=== PATIENT | male | born 1940 | race Caucasian/White ===

== ENCOUNTER 2016-12-23 03:01 | Inpatient (IN) | payer MEDICARE, OTHER ==
[2016-12-23] MEDS ORDERED: PANTOPRAZOLE SODIUM 40 MG VIAL IV ONE (03:30)
--- NOTE | 2016-12-23 03:32 | ER Document Report ---
ED GI/ - General Mode of Arrival: Ambulatory Information source: Patient TRAVEL OUTSIDE OF THE [place] IN LAST 30 DAYS: No - HPI Patient complains to provider of: Vomiting Associated symptoms: Other - See above <RHONDA BELL - Last Filed: 12/23/16 03:42> <FRIDASWATHISCOTT REBECCA - Last Filed: 12/23/16 06:19> - General Chief Complaint: Vomiting Stated Complaint: VOMITING BLOOD Notes: Patient is a 76 year old male, with a past medical history including ulcers, who presents to the emergency department after vomiting blood. Patient reports the vomit is darkish red in color. Patient reports this has not happened in a long time. Patient complains of some pain in his esophagus. Patient admits to not eating very well recently and that he is not on any blood thinners or Asa. Patient denies lightheadedness, dizziness, and chest pain. Patient reports he has had dark stools but not in the past couple of days. PCP: Dr. Heller (RHONDA BELL) - Related Data Allergies/Adverse Reactions: No Known Allergies Allergy (Unverified 12/23/16 05:45) Past Medical History - General Information source: Patient - Social History Smoking Status: Unknown if Ever Smoked Frequency of alcohol use: Occasional Family History: Reviewed & Not Pertinent Patient has suicidal ideation: No Patient has homicidal ideation: No <RHONDA BELL - Last Filed: 12/23/16 03:42> Review of Systems - Review of Systems Constitutional: No symptoms reported EENT: No symptoms reported Cardiovascular: denies: Chest pain, Dizziness, Lightheaded Respiratory: No symptoms reported Gastrointestinal: See HPI, Vomiting, Blood in vomit, Black stools Genitourinary: No symptoms reported Male Genitourinary: No symptoms reported Musculoskeletal: No symptoms reported Skin: No symptoms reported Hematologic/Lymphatic: No symptoms reported Neurological/Psychological: No symptoms reported -: Yes All other systems reviewed and negative <RHONDA BELL - Last Filed: 12/23/16 03:42> Physical Exam - Vital signs Interpretation: Tachycardic - General General appearance: Appears well, Alert - HEENT Head: Normocephalic, Atraumatic - Respiratory Respiratory status: No respiratory distress Chest status: Nontender Breath sounds: Normal Chest palpation: Normal - Cardiovascular Rhythm: Tachycardia Heart sounds: Normal auscultation Murmur: No - Abdominal Inspection: Normal Distension: No distension Bowel sounds: Normal Tenderness: Tender - Mild epigstric tenerness to palpation Organomegaly: No organomegaly - Extremities General upper extremity: Normal inspection General lower extremity: Normal inspection - Neurological Neuro grossly intact: Yes Cognition: Normal Orientation: AAOx4 [place] Coma Scale Eye Opening: Spontaneous [place] Coma Scale Verbal: Oriented [place] Coma Scale Motor: Obeys Commands Renee Coma Scale Total: 15 Speech: Normal - Psychological Associated symptoms: Normal affect, Normal mood - Skin Skin Temperature: Warm Skin Moisture: Dry Skin Color: Normal <RHONDA BELL - Last Filed: 12/23/16 03:42> Course <RHONDA BELL - Last Filed: 12/23/16 03:42> - Laboratory Result Diagrams: 12/23/16 03:37 12/23/16 03:37 - Diagnostic Test Radiology reviewed: Image reviewed, Reports reviewed <SCOTT JAMISON - Last Filed: 12/23/16 06:19> - Re-evaluation Re-evalutation: 12/23/16 06:16 Patient presents with coffee-ground emesis. History of gastritis and peptic ulcer disease. Sent surgery in the past for perforated ulcer. Hemoglobin stable. Patient is still mildly tachycardic. He has been given Protonix with fluids. No acute findings on ultrasound. Afebrile. Patient is agreeable to admission. Discussed with the hospitalist. We have GI on today. Stable time of admission (SCOTT JAMISON) - Vital Signs Vital signs: Temp Pulse Resp BP Pulse Ox 98.2 F 125 H 18 168/77 H 97 12/23/16 03:06 12/23/16 03:06 12/23/16 03:06 12/23/16 03:06 12/23/16 03:06 - Laboratory Laboratory results interpreted by me: 12/23/16 12/23/16 03:37 03:37 WBC 13.1 H RBC 4.16 L Seg Neutrophils % 81.4 H Lymphocytes % 8.1 L Absolute Neutrophils 10.7 H Sodium 136.5 L Glucose 176 H Calcium 10.9 H Total Bilirubin 1.8 H AST 60 H Discharge <RHONDA BELL - Last Filed: 12/23/16 03:42> - Discharge Admitting Provider: Hospitalist [facility] Admitted: Telemetry <SCOTT JAMISON - Last Filed: 12/23/16 06:19> - Discharge Clinical Impression: Coffee ground emesis Vomiting Qualifiers: Vomiting type: unspecified Vomiting Intractability: non-intractable Nausea presence: with nausea Qualified Code(s): R11.2 - Nausea with vomiting, unspecified Condition: Stable Disposition: ADMITTED OBSERVATION Scribe Attestation: 12/23/16 06:18 I personally performed the services described in the documentation, reviewed and edited the documentation which was dictated to the scribe in my presence, and it accurately records my words and actions. (SCOTT JAMISON) Scribe Documentation - Scribe Written by Reilly:: reilly Deal, 12/23/16, 0356 acting as scribe for :: Naina <RHONDA BELL - Last Filed: 12/23/16 03:42>
[2016-12-23 03:47] LABS: ABSOLUTE LYMPHOCYTES (AUTO) 1.1 10^3/uL (0.5-4.7); ABSOLUTE MONOCYTES (AUTO) 1.3 10^3/uL (0.1-1.4); ABSOLUTE NEUT (AUTO) 10.7 10^3/uL (1.7-8.2); BASOPHILS % (AUTO) 0.2 % (0-2); EOSINOPHILS % (AUTO) 0.1 % (0-6); HEMOGLOBIN 13.9 g/dL (13.5-17.0); HGB HCT DIFFERENCE 1.7; LYMPHOCYTES % (AUTO) 8.1 % (13-45); MEAN CORPUSCULAR HEMOGLOBIN 33.3 pg (27.0-33.4); MEAN CORPUSCULAR HGB CONC 34.7 g/dL (32.0-36.0); MEAN CORPUSCULAR VOLUME 96 fl (80-97); MONOCYTES % (AUTO) 10.2 % (3-13); RED BLOOD COUNT 4.16 10^6/uL (4.35-5.55); RED CELL DISTRIBUTION WIDTH 12.1 % (11.5-14.0); SEGMENTED NEUTROPHILS % (AUTO) 81.4 % (42-78); WHITE BLOOD COUNT 13.1 10^3/uL (4.0-10.5)
[2016-12-23 04:04] LABS: ALANINE AMINOTRANSFERASE 43 U/L (21-72); ALBUMIN 3.6 g/dL (3.5-5.0); ALKALINE PHOSPHATASE 81 U/L (38-126); ANION GAP 12 (5-19); ASPARTATE AMINO TRANSFERASE 60 U/L (17-59); BILIRUBIN,TOTAL 1.8 mg/dL (0.2-1.3); BLOOD UREA NITROGEN 14 mg/dL (7-20); CALCIUM 10.9 mg/dL (8.4-10.2); CARBON DIOXIDE 25 mmol/L (22-30); CHLORIDE 100 mmol/L (98-107); CREATINE KINASE 58 U/L (55-170); CREATININE RESULT 1.06 mg/dL (0.52-1.25); GLUCOSE 176 mg/dL (75-110); LIPASE 152.7 U/L (23-300); SODIUM 136.5 mmol/L (137-145); TOTAL PROTEIN 7.7 g/dL (6.3-8.2)
[2016-12-23 04:16] LABS: CREATINE KINASE MB 0.91 ng/mL (<4.55)
[2016-12-23 04:17] LABS: TROPONIN I < 0.012 ng/mL
[2016-12-23] MEDS ORDERED: ONDANSETRON HCL INJ/PF 4 MG/2 ML SDV IV PRN (06:19)
[2016-12-23] MEDS ORDERED: SUCRALFATE 1 GM TABLET PO ONE (06:19)
[2016-12-23] MEDS ORDERED: ACETAMINOPHEN 650 MG SUPP.RECT PR PRN (06:19)
[2016-12-23] MEDS ORDERED: IPRATROPIUM/ALBUTEROL 0.5-2.5 MG/3 ML AMPUL NEB PRN (06:19)
[2016-12-23] MEDS: PANTOPRAZOLE SODIUM 40 MG VIAL IV PRN (06:25)
[2016-12-23 06:26] LABS: AMORPHOUS SEDIMENT,URINE TRACE /HPF; APPEARANCE,URINE SLIGHTLY-CLOUDY; BILIRUBIN,URINE NEGATIVE (NEGATIVE); GLUCOSE, URINE NEGATIVE (NEGATIVE); KETONES,URINE NEGATIVE (NEGATIVE); LEUKOCYTE ESTERASE,URINE NEGATIVE (NEGATIVE); NITRITE,URINE NEGATIVE (NEGATIVE); PROTEIN,URINE NEGATIVE (NEGATIVE); URINE SPECIFIC GRAVITY 1.006
[2016-12-23] MEDS: NORMAL SALINE 1000 ML 1,000 ML IV SCH ×2 (06:41→12:17)
[2016-12-23] MEDS ORDERED: NORMAL SALINE 500 ML with OCTREOTIDE ACETATE 500 MCG IV PRN ×2 (06:49)
[2016-12-23] MEDS ORDERED: METOPROLOL TARTRATE PF/INJ 5 MG/5 ML SDV IV ONE (06:49)
--- NOTE | 2016-12-23 07:02 | PDOC H&P ---
History of Present Illness Admission Date/PCP: 12/23/16 06:19 Patient complains of: Vomiting blood History of Present Illness: MARISSA CORONA is a 76 year old male with a past Fred history of remote peptic ulcer disease and esophageal varices 12 years ago. Been in his usual state of health until approximately 4 hours prior to presentation having a stomachache followed by 3 episodes of vomiting both bright red and dark blood with an estimated blood loss of approximately 1 cup. Patient is a poor historian stating he has had symptoms somewhat similar in the past but nothing recent, he denies problem drinking but has evidence of ascites and is unclear quantifying his customary of several beers and whiskey per day. He's had no further episodes of nausea or abdominal pain while in the emergency room he is tachycardic and his CBC is unremarkable he is INR is pending he is started on IV Protonix and referred to hospice for admission. Past Medical History Cardiac Medical History: Reports: None Pulmonary Medical History: Reports: None EENT Medical History: Reports: None Neurological Medical History: Reports: None Endocrine Medical History: Reports: None Renal/ Medical History: Reports: None Malignancy Medical History: Reports: None GI Medical History: Reports: Cirrhosis, Peptic Ulcer Disease - Status post unknown peptic ulcer surgery, Other - Esophageal varices Musculoskeltal Medical History: Reports: None Skin Medical History: Reports: None Psychiatric Medical History: Reports: Alcohol Dependency Past Surgical History Past Surgical History: Reports: Other - Peptic ulcer surgery abdominal midline scar Social History Information Source: Patient Lives with: Alone Smoking Status: Unknown if Ever Smoked Frequency of Alcohol Use: Heavy Drugs: None Hx Prescription Drug Abuse: No - Advance Directive Resuscitation Status: Full Code Family History Family History: Hypertension Parental Family History Reviewed: Yes Children Family History Reviewed: Yes Sibling(s) Family History Reviewed.: Yes Medication/Allergy Allergies/Adverse Reactions: No Known Allergies Allergy (Unverified 12/23/16 05:45) Review of Systems Constitutional: PRESENT: fatigue. ABSENT: chills, fever(s), headache(s), weight gain, weight loss Eyes: ABSENT: visual disturbances Ears: ABSENT: hearing changes Cardiovascular: ABSENT: chest pain, dyspnea on exertion, edema, orthropnea, palpitations Respiratory: ABSENT: cough, hemoptysis Gastrointestinal: PRESENT: bloating, coffee ground emesis, heartburn. ABSENT: abdominal pain, constipation, diarrhea, hematemesis, hematochezia, melena, nausea, vomiting Genitourinary: ABSENT: dysuria, hematuria Musculoskeletal: ABSENT: joint swelling Integumentary: ABSENT: rash, wounds Neurological: ABSENT: abnormal gait, abnormal speech, confusion, dizziness, focal weakness, syncope Psychiatric: ABSENT: anxiety, depression, homidical ideation, suicidal ideation Endocrine: ABSENT: cold intolerance, heat intolerance, polydipsia, polyuria Hematologic/Lymphatic: ABSENT: easy bleeding, easy bruising Physical Exam Vital Signs: Temp Pulse Resp BP Pulse Ox 98.2 F 125 H 18 168/77 H 97 12/23/16 03:06 12/23/16 03:06 12/23/16 03:06 12/23/16 03:06 12/23/16 03:06 General appearance: PRESENT: cooperative, mild distress Head exam: PRESENT: atraumatic, normocephalic Eye exam: PRESENT: conjunctiva pink, EOMI, PERRLA. ABSENT: scleral icterus Ear exam: PRESENT: normal external ear exam Mouth exam: PRESENT: moist, tongue midline Neck exam: ABSENT: carotid bruit, JVD, lymphadenopathy, thyromegaly Respiratory exam: PRESENT: clear to auscultation abhilash. ABSENT: rales, rhonchi, wheezes Cardiovascular exam: PRESENT: RRR. ABSENT: diastolic murmur, rubs, systolic murmur Pulses: PRESENT: normal dorsalis pedis pul GI/Abdominal exam: PRESENT: ascites, distended, hyperactive bowel sounds, soft, tenderness - Epigastric tenderness. ABSENT: firm, guarding, hernia Rectal exam: PRESENT: deferred Extremities exam: PRESENT: full ROM. ABSENT: calf tenderness, clubbing, pedal edema Neurological exam: PRESENT: alert, awake, oriented to person, oriented to place , oriented to time, oriented to situation, CN II-XII grossly intact. ABSENT: motor sensory deficit Skin exam: PRESENT: dry, intact, warm. ABSENT: cyanosis, rash Results Impressions: Chest X-Ray 12/23/16 00:00 IMPRESSION: NO ACUTE RADIOGRAPHIC FINDING IN THE CHEST. Abdomen Ultrasound 12/23/16 04:54 IMPRESSION: NORMAL RIGHT UPPER QUADRANT ULTRASOUND. Assessment & Plan - Diagnosis (1) Coffee ground emesis Is this a current diagnosis for this admission?: YesPlan: Unclear source of upper GI bleed given his history of both peptic ulcer disease and varices he'll be started on both IV Protonix and octreotide with GI consult serial CBC every 6 hours type and screen 2 units of pack red blood cells evaluation of INR (2) Peptic ulcer disease Is this a current diagnosis for this admission?: YesPlan: Nothing by mouth, IV Protonix and GI consult (3) Esophageal varices Is this a current diagnosis for this admission?: YesPlan: Octreotide type and screen evaluate for coagulopathy and GI consult (4) Alcohol dependence Is this a current diagnosis for this admission?: YesPlan: Thiamine folate when necessary Ativan (5) Tachycardia Is this a current diagnosis for this admission?: YesPlan: When necessary Lopressor - Time Time Spent: 30 to 50 Minutes - Inpatient Certification Medical Necessity: Need Close Monitoring Due to Risk of Patient Decompensation
[2016-12-23] MEDS ORDERED: LORAZEPAM INJ 2 MG/1 ML VIAL IV PRN (07:20)
--- NOTE | 2016-12-23 09:01 | Physician Advisory Note ---
Physician Advisor ProgressNote .: Pursuant to the plan for [facility], I have reviewed the medical record for this patient. Physician Advisor Statement: Possible documentation opportunities if attending agrees: 1. "SIRS, present on arrival, due to acute GI bleed" 2. "Acute upper GIBleed, due to " (when source this time is known) 3. "mild hyponatremia, likely due to intravascular volume depletion related to EtOH" (or ...) 4. ? - watch for development of "Anemia of acute blood loss due to acute GI Bleed" 5. ? - "malnutrition, mild-moderate, with underlying alcoholism, poor po intake , .... " 6. Medical Necessity - please stress explicitly in documentation the clinical issues that make this pt concerning & needing hospitalization, why despite his initial nl Hgb & improved tachycardia he concerns you and is likely to require close monitoring through as least 12/25 - if indeed you believe this to be true. See below, under "status". As always, if concerned about any unstable VS or abnormal labs, please comment on them & note what doing about them, & please document each day the potential clinical problems you are concerned could occur if pt not kept in hospital for tx at this time. Discussion: 76yo male w/ chronic co-morbidities including cirrhosis, esophageal varices, PUD with prior surgery for perforated ulcer, continuing alcohol dependence - presented 3/7 early AM to ED w/hematemesis (BRB + coffee ground by report), esophageal pain, some previous black stools at times, recent poor po intake, fatigue, bloating, heartburn, (+) HR 125, epigastric tenderness, ascites, WBC 13.1, Hgb 13.9 to start, Na 136.5, glc 176, Ca 10.9, TB 1.8, AST 60 (no previous lab levels here to compare) , CXR & RUQ U/S = no acute findings. Attending ordered IV PPI, octreotide, GI consult, serial CBCs, T&C 2 units, INR , NPO except ice chips, I/O's, daily wts, f/u AM labs, O2 2L, IMCU, tele, IV metoprolol x1, Zofran prn, Carafate, IV NS x2L @200ml/hr, PRN Ativan, thiamine, heparin SQ q8h.. Status: Elderly pt with multiple risk factors for severe acute bleeding, & for recurrent bleeding, including esophageal varices & prior PUD severe enough to require surgery, as well as ongoing alcoholism and likely associated malnutrition. So far Hgb wnl at initial check, but is likely to drop after fluid resuscitation and re-equilibration from prior bleeding, and he will need watching clinically and repeated lab checks to clarify whether or not the drops are only from these issues or whether or not there is ongoing bleeding. Pt's hypertension and tachycardia increase risks for further bleeding from esophageal varices (a reason for giving the IV metoprolol already). Tachycardia is improved by time of 2nd set VS. However, pt remains at high risk for recurrent tachycardia & hypertension due to alcohol withdrawal that can be expected to develop over the next 2-5 days, further increasing risks for re-bleeding. He is certainly at risk for developing DTs as well. Tx in inpatient hospital setting medically reasonable & necessary to protect pt' s health, safety, & medical condition? If so, please "paint the picture". Reasonable to consider transition to Inpatient status if attending agrees pt's severity of illness /risk of complications if not closely monitored in hospital is high & documents accordingly. Thanks for your help with documentation accuracy/specificity improvement! Farhana Huerta MD [facility] Physician Advisor, Fellow of Hospital Medicine
[2016-12-23 12:09] LABS: ABSOLUTE LYMPHOCYTES (AUTO) 1.8 10^3/uL (0.5-4.7); ABSOLUTE MONOCYTES (AUTO) 1.1 10^3/uL (0.1-1.4); ABSOLUTE NEUT (AUTO) 7.6 10^3/uL (1.7-8.2); BASOPHILS % (AUTO) 0.3 % (0-2); EOSINOPHILS % (AUTO) 0.3 % (0-6); HEMATOCRIT 39.2 % (37.9-51.0); HEMOGLOBIN 13.4 g/dL (13.5-17.0); LYMPHOCYTES % (AUTO) 17.3 % (13-45); MEAN CORPUSCULAR HEMOGLOBIN 33.1 pg (27.0-33.4); MEAN CORPUSCULAR HGB CONC 34.1 g/dL (32.0-36.0); MEAN CORPUSCULAR VOLUME 97 fl (80-97); MONOCYTES % (AUTO) 10.3 % (3-13); RED BLOOD COUNT 4.04 10^6/uL (4.35-5.55); RED CELL DISTRIBUTION WIDTH 12.3 % (11.5-14.0); SEGMENTED NEUTROPHILS % (AUTO) 71.8 % (42-78); WHITE BLOOD COUNT 10.6 10^3/uL (4.0-10.5)
[2016-12-23] MEDS: THIAMINE HCL 100 MG, FOLIC ACID 1 MG in NORMAL SALINE 50 ML IV SCH (12:14)
--- NOTE | 2016-12-23 12:30 | PDOC PROGRESS REPORT ---
Subjective Progress Note for:: 12/23/16 Subjective:: Reason for visit: Follow-up of upper GI bleed and anemia Hospital course: Per H&P " MARISSA CORONA is a 76 year old male with a past Fred history of remote peptic ulcer disease and esophageal varices 12 years ago. Been in his usual state of health until approximately 4 hours prior to presentation having a stomachache followed by 3 episodes of vomiting both bright red and dark blood with an estimated blood loss of approximately 1 cup. Patient is a poor historian stating he has had symptoms somewhat similar in the past but nothing recent, he denies problem drinking but has evidence of ascites and is unclear quantifying his customary of several beers and whiskey per day. He's had no further episodes of nausea or abdominal pain while in the emergency room he is tachycardic and his CBC is unremarkable he is INR is pending he is started on IV Protonix and referred to hospice for admission." The patient denies any further hematemesis since seen by Dr. Oneal, further denies hematochezia and melena. States his epigastric discomfort has resolved. He is not nauseous and would like for something to eat. He is yet to be evaluated by gastroenterology. Subjective: As above, patient has no complaints for me at this time other than hunger. ROS: per HPI plus a total of 10 systems reviewed, pertinent positives and negatives noted above, remaining systems negative. Physical Exam Vital Signs: Temp Pulse Resp BP Pulse Ox 97.7 F 60 12 134/55 H 99 12/23/16 06:58 12/23/16 09:55 12/23/16 11:31 12/23/16 11:31 12/23/16 11:31 EXAM GENERAL: NAD; well developed, well nourished; mild obese; alert and oriented to person, place, time, situation HEENT: normocephalic, atraumatic; no conjunctival injection, no scleral icterus ; oral mucosa moist; RESPIRATORY: no accessory muscle use, no increased WOB, good air entry bilaterally; no wheezes, rales, rhonchi; no inspiratory crackles CARDIO: no JVD; RRR; no systolic murmur; no tachycardia GI: soft; nondistended; normal bowel sounds; no hepato spleno megaly; no rebound, rigidity, guarding; nontender to palpation even in the epigastrium VASCULAR: no abdominal bruit; no pallor; 2+ radial, DP pulse; normal capillary refill EXTREMITIES: no calf tender; no palpable cords in calf; no clubbing, cyanosis , pedal edema PSYCH: normal affect, normal mood SKIN: warm; moist; no petechiae; no telengectasias; no jaundice; no rash Results Laboratory Results: 12/23/16 12:02 12/23/16 12:02 WBC 10.6 H RBC 4.04 L Hgb 13.4 L Hct 39.2 MCV 97 MCH 33.1 MCHC 34.1 RDW 12.3 Plt Count 143 L Seg Neutrophils % 71.8 Lymphocytes % 17.3 Monocytes % 10.3 Eosinophils % 0.3 Basophils % 0.3 Absolute Neutrophils 7.6 Absolute Lymphocytes 1.8 Absolute Monocytes 1.1 Absolute Eosinophils 0.0 Absolute Basophils 0.0 Labs reviewed, H&H reassuring Impressions: Chest X-Ray 12/23/16 00:00 IMPRESSION: NO ACUTE RADIOGRAPHIC FINDING IN THE CHEST. Abdomen Ultrasound 12/23/16 04:54 IMPRESSION: NORMAL RIGHT UPPER QUADRANT ULTRASOUND. Status: Imported from PACS - Reports reviewed Assessment & Plan - Diagnosis (1) Upper GI bleed Is this a current diagnosis for this admission?: YesPlan: Keep nothing by mouth, continue to trend H&H, awaiting gastroenterology's evaluation. Given his history I suspect he will need endoscopy is just not clear how urgently. Since his hemoglobin is holding it is not showing any further signs of bleeding we'll delete the octreotide. (2) Alcohol dependence Is this a current diagnosis for this admission?: Yes (3) Esophageal varices Is this a current diagnosis for this admission?: Yes (4) Peptic ulcer disease Is this a current diagnosis for this admission?: YesPlan: Continue the PPI drip for now - Time Time Spent with patient: 15-24 minutes
--- NOTE | 2016-12-23 12:59 | EKG REPORT ---
SEVERITY:- ABNORMAL ECG - SINUS TACHYCARDIA PROBABLE LEFT ATRIAL ABNORMALITY PROBABLE LEFT VENTRICULAR HYPERTROPHY : Confirmed by: Shantelle Cowart 23-Dec-2016 12:58:39
[2016-12-23] MEDS: HEPARIN SOD (PORCINE) 5,000 UNIT/ML 1 ML SYRINGE SUBCUT SCH ×2 (14:47→22:04)
--- NOTE | 2016-12-23 17:39 | PDOC CONSULTATION ---
Consultation Consult Date: 12/23/16 Attending physician:: MICHELLE WILCOX Consult reason:: Hematemesis History of Present Illness Admission Date/PCP: 12/23/16 06:19 History of Present Illness: patient presented to the hospital with what he states is hematemesis he actually describes some coffee ground emesis x3 patient does have a stable H/H patient states no current abdominal pain there is no nausea or vomiting denies any weight loss or early satiety patient had previous episode while on vacation in [place] apparently was told that he had an ulcer patient's coagulation profile is normal there is no relative thrombocytopenia patient denies any tachycardia or shortness of breath there are no syncopal episodes patient has a normal BUN/ Creat ratio patient will need EGD in am to rule out peptic ulcer Past Medical History Cardiac Medical History: Reports: None Pulmonary Medical History: Reports: None EENT Medical History: Reports: None Neurological Medical History: Reports: None Endocrine Medical History: Reports: None Renal/ Medical History: Reports: None Malignancy Medical History: Reports: None GI Medical History: Reports: Cirrhosis, Peptic Ulcer Disease - Status post unknown peptic ulcer surgery, Other - Esophageal varices Musculoskeltal Medical History: Reports: None Skin Medical History: Reports: None Psychiatric Medical History: Reports: Alcohol Dependency Past Surgical History Past Surgical History: Reports: Other - Peptic ulcer surgery abdominal midline scar Social History Lives with: Alone Smoking Status: Former Smoker Cigarettes Packs Per Day: 0 Cigars Per Day: 0 Pipes Per Day: 0 Last Time Smoked: 1975 Frequency of Alcohol Use: Heavy Hx Recreational Drug Use: No Drugs: None Hx Prescription Drug Abuse: No - Advance Directive Resuscitation Status: Full Code Family History Family History: Hypertension Parental Family History Reviewed: Yes Children Family History Reviewed: Unknown Sibling(s) Family History Reviewed.: Unknown Medication/Allergy Home Medications: Etodolac 400 mg PO BID 12/23/16 Multivitamin [Tab-A-Glenny (Multiple Vitamin) Tablet] 1 tab PO DAILY 12/23/16 Allergies/Adverse Reactions: No Known Allergies Allergy (Unverified 12/23/16 05:45) Review of Systems Constitutional: ABSENT: fever(s), headache(s), night sweats, weakness Eyes: ABSENT: visual disturbances Ears: ABSENT: hearing changes Nose, Mouth, and Throat: ABSENT: mouth pain, sore throat Cardiovascular: ABSENT: edema, orthropnea, palpitations Respiratory: ABSENT: dyspnea, hemoptysis Gastrointestinal: PRESENT: hematemesis. ABSENT: diarrhea, dysphagia, heartburn , hematochezia, nausea, vomiting Genitourinary: ABSENT: dysuria, hematuria Musculoskeletal: ABSENT: deformity, joint swelling Integumentary: ABSENT: lesions, pruritus Neurological: ABSENT: frequent falls, lack of coordination, numbness, paresthesias, syncope, tingling, vertigo Endocrine: ABSENT: polydipsia, polyphagia, polyuria Hematologic/Lymphatic: ABSENT: easy bruising Physical Exam Vital Signs: Temp Pulse Resp BP Pulse Ox 98.4 F 101 H 16 158/57 H 98 12/23/16 15:26 12/23/16 15:33 12/23/16 15:26 12/23/16 15:26 12/23/16 15:26 Intake & Output 12/22/16 12/23/16 12/24/16 06:59 06:59 06:59 Weight 107.9 kg General appearance: PRESENT: no acute distress, well-developed, well-nourished Head exam: PRESENT: atraumatic, normocephalic Eye exam: PRESENT: EOMI. ABSENT: nystagmus, periorbital swelling, scleral icterus Mouth exam: PRESENT: moist Neck exam: ABSENT: meningismus, tenderness, thyromegaly Respiratory exam: PRESENT: clear to auscultation abhialsh, symmetrical, unlabored. ABSENT: accessory muscle use, rhonchi, stridor Cardiovascular exam: PRESENT: RRR, +S1, +S2. ABSENT: rubs GI/Abdominal exam: PRESENT: normal bowel sounds, soft. ABSENT: ascites, distended, Kimble's sign, rebound, rigid, tenderness Gentrourinary exam: ABSENT: lesions, scrotal swelling Extremities exam: ABSENT: joint swelling Musculoskeletal exam: PRESENT: full ROM Neurological exam: PRESENT: alert, awake, oriented to person, oriented to place , CN II-XII grossly intact Psychiatric exam: PRESENT: appropriate affect Skin exam: PRESENT: normal color. ABSENT: mottled, pallor, petechiae, urticaria , vesicles Results Laboratory Results: 12/23/16 12:02 12/23/16 12:02 WBC 10.6 H RBC 4.04 L Hgb 13.4 L Hct 39.2 MCV 97 MCH 33.1 MCHC 34.1 RDW 12.3 Plt Count 143 L Seg Neutrophils % 71.8 Lymphocytes % 17.3 Monocytes % 10.3 Eosinophils % 0.3 Basophils % 0.3 Absolute Neutrophils 7.6 Absolute Lymphocytes 1.8 Absolute Monocytes 1.1 Absolute Eosinophils 0.0 Absolute Basophils 0.0 Impressions: Chest X-Ray 12/23/16 00:00 IMPRESSION: NO ACUTE RADIOGRAPHIC FINDING IN THE CHEST. Abdomen Ultrasound 12/23/16 04:54 IMPRESSION: NORMAL RIGHT UPPER QUADRANT ULTRASOUND. Assessment & Plan - Diagnosis (1) Coffee ground emesis Is this a current diagnosis for this admission?: YesPlan: he does drink alcohol but does not have evidence to corroborate possible esophageal varices patient is relatively stable normal BUN/ Creat ratio has not had a significant drop of H/H following hydration no thrombocytopenia noted will need EGD could have peptic ulcer disease will need to exclude possible H.Pylori gastritis Risks, benefits and alternatives are discussed with the patient in detail he is willing to proceed check H/H transfuse as necessary PPI OK to discontinue Octreotide for now - Time Time Spent: 50 to 70 Minutes
[2016-12-23 18:35] LABS: ABSOLUTE BASOPHILS # (AUTO) 0.1 10^3/uL (0.0-0.2); ABSOLUTE EOSINOPHILS # (AUTO) 0.1 10^3/uL (0.0-0.6); ABSOLUTE LYMPHOCYTES (AUTO) 1.9 10^3/uL (0.5-4.7); BASOPHILS % (AUTO) 0.5 % (0-2); EOSINOPHILS % (AUTO) 0.5 % (0-6); HEMATOCRIT 37.5 % (37.9-51.0); HEMOGLOBIN 12.8 g/dL (13.5-17.0); HGB HCT DIFFERENCE 0.9; MEAN CORPUSCULAR HEMOGLOBIN 33.2 pg (27.0-33.4); MEAN CORPUSCULAR HGB CONC 34.1 g/dL (32.0-36.0); MEAN CORPUSCULAR VOLUME 97 fl (80-97); MONOCYTES % (AUTO) 10.2 % (3-13); RED BLOOD COUNT 3.86 10^6/uL (4.35-5.55); RED CELL DISTRIBUTION WIDTH 12.3 % (11.5-14.0); SEGMENTED NEUTROPHILS % (AUTO) 69.8 % (42-78)
[2016-12-24] MEDS: PANTOPRAZOLE SODIUM 40 MG VIAL IV PRN (00:06)
[2016-12-24 05:06] LABS: ANION GAP 9 (5-19); BLOOD UREA NITROGEN 14 mg/dL (7-20); CALCIUM 8.8 mg/dL (8.4-10.2); CARBON DIOXIDE 22 mmol/L (22-30); CHLORIDE 106 mmol/L (98-107); CREATININE RESULT 1.02 mg/dL (0.52-1.25); GLUCOSE 98 mg/dL (75-110); POTASSIUM 3.7 mmol/L (3.6-5.0); SODIUM 136.9 mmol/L (137-145)
[2016-12-24] MEDS: HEPARIN SOD (PORCINE) 5,000 UNIT/ML 1 ML SYRINGE SUBCUT SCH (06:18)
[2016-12-24] MEDS ORDERED: DIPHENHYDRAMINE HCL 50 MG/ML VIAL ONE (08:43)
[2016-12-24] MEDS ORDERED: PROMETHAZINE HCL INJ 25 MG/1 ML VIAL ONE (08:43)
[2016-12-24] MEDS ORDERED: ONDANSETRON HCL INJ/PF 4 MG/2 ML SDV ONE (08:43)
[2016-12-24] MEDS ORDERED: NALOXONE HCL INJ/PF 0.4 MG/1 ML SDV ONE (08:43)
[2016-12-24] MEDS ORDERED: EPINEPHRINE INJ 1 MG/10 ML DISP.SYRIN ONE (08:44)
[2016-12-24] MEDS ORDERED: FLUMAZENIL INJ 0.5 MG/5 ML VIAL IV ONE (08:44)
[2016-12-24] MEDS ORDERED: GLUCAGON,HUMAN RECOMB 1 MG INJ ONE (08:44)
[2016-12-24] MEDS: MIDAZOLAM 2 MG/2 ML INJ ONE ×2 (08:56→08:59)
[2016-12-24] MEDS: FENTANYL CITRATE INJ/PF 100 MCG/2 ML AMPUL ONE ×2 (08:58→09:01)
--- NOTE | 2016-12-24 09:08 | Operative Report ---
Operative Report DATE OF SURGERY: 12/24/16 Operative Report: The risks benefits and alternatives of the procedure explained to the patient in detail and informed consent is obtained that GIF Olympus video scope was inserted into the patient's mouth and hypopharynx the esophagus is identified intubated and insufflated the scope was then advanced through the esophagus stomach and duodenum retroflexion maneuver is done the esophagus stomach and first and second portions of the duodenum examined PREOPERATIVE DIAGNOSIS: Coffee-ground emesis, nausea vomiting POSTOPERATIVE DIAGNOSIS: Erosive esophagitis, esophageal ulcers. Hiatal hernia. Gastritis. Duodenitis OPERATION: EGD with biopsy SURGEON: MICHELLE WILCOX ANESTHESIA: Moderate Sedation - 4 mg Versed, 1 g fentanyl. Conscious sedation monitoring time 15 minutes TISSUE REMOVED OR ALTERED: Gastric mucosal specimens obtained COMPLICATIONS: None. ESTIMATED BLOOD LOSS: none. INTRAOPERATIVE FINDINGS: As noted above. PROCEDURE: Patient tolerated procedure well. No immediate postprocedure complications noted Patient sent back to his room in good condition. Resume previous diet advance as tolerated. PPI Follow-up as outpatient to determine healing of the ulcers We'll await biopsies to rule out Helicobacter pylori Okay for discharged unless there are any other issues
[2016-12-24] MEDS: THIAMINE HCL 100 MG, FOLIC ACID 1 MG in NORMAL SALINE 50 ML IV SCH (11:24)
[2016-12-24 15:14] VITALS: BP 134/75
--- NOTE | 2016-12-24 17:45 | PDOC DISCHARGE SUMMARY ---
General - Admit/Disc Date/PCP Admission Date/Primary Care Provider: 12/23/16 06:19 Discharge Date: 12/24/16 - Discharge Diagnosis (1) Upper GI bleed Is this a current diagnosis for this admission?: YesSummary: Secondary to erosive esophagitis, esophageal ulcers, gastritis and duodenitis without evidence for active bleed. Continue PPI therapy twice a day. Patient was counseled on significant alcohol reduction without cessation given his long- standing alcohol use he is at grave risk for withdrawal and was discouraged against abrupt cessation. He responded by stating the first thing he'll do is cut out the bourbon and his 2 cups of coffee first thing in the morning and cut back on the dose he has at lunch utilizing only his alcohol with his evening meal and nightly That by his estimation will cut his dose in half (2) Alcohol dependence Is this a current diagnosis for this admission?: Yes (3) Esophageal varices Is this a current diagnosis for this admission?: NoSummary: Ruled out by endoscopy (4) Peptic ulcer disease Is this a current diagnosis for this admission?: YesSummary: PPI therapy twice a day with follow-up endoscopy per Dr. Thompson's instructions. - Additional Information Resuscitation Status: Full Code Discharge Diet: As Tolerated Discharge Activity: Activity As Tolerated Home Medications: Multivitamin [Tab-A-Glenny (Multiple Vitamin) Tablet] 1 tab PO DAILY 12/23/16 Pantoprazole Sodium [Protonix] 40 mg PO BID #60 tablet. 12/24/16 History of Present Illness Patient complains of: Vomiting blood History of Present Illness: MARISSA CORONA is a 76 year old male with a past Fred history of remote peptic ulcer disease and esophageal varices 12 years ago. Been in his usual state of health until approximately 4 hours prior to presentation having a stomachache followed by 3 episodes of vomiting both bright red and dark blood with an estimated blood loss of approximately 1 cup. Patient is a poor historian stating he has had symptoms somewhat similar in the past but nothing recent, he denies problem drinking but has evidence of ascites and is unclear quantifying his customary of several beers and whiskey per day. He's had no further episodes of nausea or abdominal pain while in the emergency room he is tachycardic and his CBC is unremarkable he is INR is pending he is started on IV Protonix and referred to hospice for admission." Hospital Course Hospital Course: The patient denies any further hematemesis since seen by Dr. Oneal, further denies hematochezia and melena. States his epigastric discomfort has resolved. He is not nauseous and would like for something to eat. He is yet to be evaluated by gastroenterology. He was admitted to the hospital monitored on a PPI drip, his hematemesis quickly resolved and the octreotide drip was discontinued as his hemoglobin remained large stable. Gastroenterology was consult given his multiple risk factors agreed to proceed with upper endoscopy. This showed an erosive esophagitis with ulcerations at the GE junction, gastritis and duodenitis as the likely source of his bleeding though no active bleeding was identified. He tolerated the procedure without difficulty and biopsies or so pending at the time of discharge. He should be on PPI therapy twice a day and he was counseled regarding greatly reducing the amount of his alcohol intake while avoiding abrupt cessation due to the longevity of his dependence. The patient states clear understanding and willingness to comply. He is to follow up with his primary care provider for repeat CBC, he is to return to the emergency department for any recurrent bleeding, he is to follow- up with gastroenterology per their instructions for repeat endoscopy in the very near future. At this point he is stable for discharge home. He has tolerated diet without any complications. He is recovered from his conscious sedation is ambulating in the hallway independently is alert and oriented to person place and time showing no deficits and is stable for discharge under his own recognizance. He expresses no concerns about being discharged home at this time. Physical Exam Vital Signs: Temp Pulse Resp BP Pulse Ox 98.2 F 70 16 134/75 H 98 12/24/16 15:12 12/24/16 15:29 12/24/16 15:29 12/24/16 15:12 12/24/16 15:29 Intake & Output 12/23/16 12/24/16 12/25/16 06:59 06:59 06:59 Intake Total 1345 1029 Balance 1345 1029 Weight 108.1 kg EXAM GENERAL: NAD; well developed, well nourished; mild obese; alert and oriented to person, place, time, situation HEENT: normocephalic, atraumatic; no conjunctival injection, no scleral icterus ; oral mucosa moist; RESPIRATORY: no accessory muscle use, no increased WOB, good air entry bilaterally; no wheezes, rales, rhonchi; no inspiratory crackles CARDIO: no JVD; RRR; no systolic murmur; no tachycardia GI: soft; nondistended; normal bowel sounds; no hepato spleno megaly; no rebound, rigidity, guarding; nontender to palpation even in the epigastrium VASCULAR: no abdominal bruit; no pallor; 2+ radial, DP pulse; normal capillary refill EXTREMITIES: no calf tender; no palpable cords in calf; no clubbing, cyanosis , pedal edema PSYCH: normal affect, normal mood SKIN: warm; moist; no petechiae; no telengectasias; no jaundice; no rash Results Laboratory Results: 12/23/16 18:30 12/24/16 04:05 12/23/16 12/24/16 18:30 04:05 WBC 10.0 RBC 3.86 L Hgb 12.8 L Hct 37.5 L MCV 97 MCH 33.2 MCHC 34.1 RDW 12.3 Plt Count 143 L Seg Neutrophils % 69.8 Lymphocytes % 19.0 Monocytes % 10.2 Eosinophils % 0.5 Basophils % 0.5 Absolute Neutrophils 7.0 Absolute Lymphocytes 1.9 Absolute Monocytes 1.0 Absolute Eosinophils 0.1 Absolute Basophils 0.1 Sodium 136.9 L Potassium 3.7 Chloride 106 Carbon Dioxide 22 Anion Gap 9 BUN 14 Creatinine 1.02 Est GFR ( Amer) > 60 Est GFR (Non-Af Amer) > 60 Glucose 98 Calcium 8.8 Impressions: Chest X-Ray 12/23/16 00:00 IMPRESSION: NO ACUTE RADIOGRAPHIC FINDING IN THE CHEST. Abdomen Ultrasound 12/23/16 04:54 IMPRESSION: NORMAL RIGHT UPPER QUADRANT ULTRASOUND. Qualifiers PATEINT BEING DISCHARGED WITH ANY OF THE FOLLOWING DIAGNOSIS?: No VTE patient discharged on overlapping Therapy?: No Plan Discharge Plan: As noted above. Time Spent: Greater than 30 Minutes
[2016-12-24] MEDS ORDERED: PANTOPRAZOLE SODIUM 40 MG VIAL IV SCH (22:00)
== END 2016-12-24 15:44 | disposition home or self-care (01) | DRG 378 ==
LOC: ER 03:01 → OBSVTOIN 06:19 → EH 06:19 → UNDOADMOB 06:38 → EH 06:38 → 3N 15:19
PROVIDERS: ADMIT Internal Medicine; ATTEND Internal Medicine
PROC: 0DB68ZX Excision of Stomach, Via Natural or Artificial Opening Endoscopic, Diagnostic (ICD-10-PCS; principal; 2016-12-24 09:30)
DX: K92.0 Hematemesis (principal); K22.10 Ulcer of esophagus without bleeding; R18.8 Other ascites; K29.80 Duodenitis without bleeding; K29.70 Gastritis, unspecified, without bleeding; K44.9 Diaphragmatic hernia without obstruction or gangrene; K74.60 Unspecified cirrhosis of liver; F10.20 Alcohol dependence, uncomplicated; Z87.11 Personal history of peptic ulcer disease; Z82.49 Family history of ischemic heart disease and other diseases of the circulatory system
CPT/HCPCS: 36415; 43239; 71010; 76705; 80048; 80053; 81001; 82550; 82553; 83690; 84484; 85025; 85610; 86850; 86900; 86901; 88305; 88342; 93005; 93010; 96365; 96366; 96372; 96375; 96376; 99285; J0171; J1200; J1610; J1644; J2250; J2310; J2354; J2405; J2550; J3010; J3411; J3490; J7030; J7040; S0164

== ENCOUNTER 2019-07-10 17:33 | Inpatient (IN) | payer MEDICARE, OTHER ==
--- NOTE | 2019-07-10 18:00 | ER Document Report ---
ED Medical Screen (RME) - General Chief Complaint: General Weakness Stated Complaint: GENERAL WEAKNESS Time Seen by Provider: 07/10/19 17:41 Notes: 78-year-old otherwise healthy male presents to the emergency department brought in by his son with concern that patient might be having a stroke. Per son he noticed that his speech was slightly slurred, his dad complained of a headache, and last known normal was at 1645 today. Patient states that he is "not feeling well for the last 2 to 3 days". Son states that patient was speaking and acting normally just prior to this last known normal. EXAM: NEURO: A &O X 3, normal speech, not ambulating, PERRL, EOMI, SILT, follows commands in all 4 extremities, no gross abnormalities of cranial nerves, no focal neuro deficits, no pronator drift, [id number] testing normal, rapid alternating hand movements normal, [id number] normal, dynamite packing machine feeder strength 5/5 bilateral, 5/5 strength in both proximal and distal upper and lower extremities I have greeted and performed a rapid initial assessment of this patient. A comprehensive ED assessment and evaluation of the patient, analysis of test results and completion of medical decision making process will be conducted by an additional ED providers. TRAVEL OUTSIDE OF THE [place] IN LAST 30 DAYS: No - Related Data Allergies/Adverse Reactions: No Known Allergies Allergy (Unverified 12/23/16 05:45) Past Medical History Neurological Medical History: Denies: Hx Seizures Renal/ Medical History: Denies: Hx Peritoneal Dialysis GI Medical History: Reports: Hx Cirrhosis Psychiatric Medical History: Denies: Hx Depression Past Surgical History: Reports: Other - Peptic ulcer surgery abdominal midline scar Physical Exam - Vital signs Vitals: Temp Pulse Resp BP Pulse Ox 99.4 F 87 18 121/73 98 07/10/19 17:40 07/10/19 17:40 07/10/19 17:40 07/10/19 17:40 07/10/19 17:40 Course - Vital Signs Vital signs: Temp Pulse Resp BP Pulse Ox 99.4 F 87 18 121/73 98 07/10/19 17:40 07/10/19 17:40 07/10/19 17:40 07/10/19 17:40 07/10/19 17:40
--- NOTE | 2019-07-10 18:01 | ER Document Report ---
ED NIH Stroke Scale - NIH Stroke Scale *: 1. NIH scale should be completed with appropriate accompanying assessment tools. *: 2. The NIH should reflect what the patient is capable of doing and should not be coached by the clinician. 1a. Level of Consciousness: 0=Alert;keenly responsive -: 1=Drowsy -: 2=Obtunded -: 3=Coma/unresponsive or reflex to noxious stimuli. 1a. Responses: 0 1b. Orientation Questions: a. What month is it? -: b. How old are you? -: 0=Answers both questions correctly. -: 1=Answers one question correctly or patient is intubated or has orotracheal trauma. -: 2=Answers neither question correctly. 1b. Responses: 0 1c. Response to commands: a. Open and close eyes? -: b. Neurology Tech and release hand? -: Credit is given despite weakness. Demonstration of task is permitted. Substitute command if hands cannot be used. -: 0=Performs both tasks correctly -: 1=Performs one task correctly -: 2=Performs neither task correctly 1c. Responses: 0 2. Gaze: Establish eye contact and instruct patient to "Follow my finger" -: 0=Normal -: 1=Partial gaze palsy. Gaze is abnormal in one or both eyes, but where forced deviation or total gaze paresis is not present. -: 2=Forced deviation or total gaze paresis. 2. Responses: 0 3. Visual Kramer: Sees fingers in all four quadrants. -: 0=No visual loss. -: 1=Partial hemianopsia. -: 2=Complete hemianopsia. -: 3=Bilateral hemianopsia (including Cortical blindness) 3. Responses: 0 4. Facial Movement: Instruct patient to: -: a. Show me your teeth -: b. Raise your eyebrows -: c. Close your eyes -: d. Smile -: 0=Normal symmetrical movement -: 1=Minor paralysis (flattened nasolabial fold, asymmetry on smiling). -: 2=Partial paralysis (total or near total paralysis of lower face). -: 3=Complete paralysis of upper and lower face 4. Responses: 0 5. Motor functions (left arm): Alternate sides and extend each arm with palms down (90 degrees if sitting or 45 degrees for supine). -: 0=No drift;limb holds for full 10 seconds. -: 1=Drift; limb holds but drifts down before full 10 seconds, but does not hit bed. -: 2=Some effort against gravity; limb cannot get to or maintain position. -: 3=No effort against gravity; limb falls. -: 4=No movement. -: UN=Amputation, joint fusion, explain in comments. 5. Responses (left arm): 0 5. Motor Functions (right arm): Alternate sides and extend each arm with palms down (90 degrees if sitting or 45 degrees for supine). -: 0=No drift;limb holds for full 10 seconds. -: 1=Drift; limb holds but drifts down before full 10 seconds, but does not hit bed. -: 2=Some effort against gravity; limb cannot get to or maintain position. -: 3=No effort against gravity; limb falls. -: 4=No movement. -: UN=Amputation, joint fusion, explain in comments. 5. Responses (right arm): 0 6. Motor Functions (left leg): With patient lying supine, alternate sides and extend each leg (30 degrees always while supine). -: 0=No drift, leg holds position for full 5 seconds -: 1=Drift; leg falls before full 5 seconds but does not hit bed. -: 2=Some effort against gravity, leg falls to bed but some effort against gravity. -: 3=No effort against gravity, leg falls to bed immediately. -: 4=No movement. -: UN=Amputation, joint fusion; explain in comments. 6. Responses (left leg): 0 6. Motor Functions (right leg): With patient lying supine, alternate sides and extend each leg (30 degrees always while supine). -: 0=No drift, leg holds position for full 5 seconds -: 1=Drift; leg falls before full 5 seconds but does not hit bed. -: 2=Some effort against gravity, leg falls to bed but some effort against gravity. -: 3=No effort against gravity, leg falls to bed immediately. -: 4=No movement. -: UN=Amputation, joint fusion; explain in comments. 6. Responses (right leg): 0 7. Limb Ataxia: With eyes open instruct patient to: -: a. "Touch your finger to your nose". -: b. "Touch your heel to your stevens" -: 0=Absent -: 1=Present in one limb. -: 2=Present in two limbs. -: UN=Amputation or joint fusion; explain in comments. 7. Responses: 0 8. Sensory: Test sensation using pinprick or noxious stimuli. Test as many body parts as possible. -: 0=Normal;no sensory loss -: 1=Mile to moderate sensory loss (patient feels pin prick but is less sharp on affected side). -: 2=Severe or total sensory loss. 9. Best Language: Instruct patient to: -: a. "Describe what you see in this picture." -: b. "Name the items in this picture." -: c. "Read these sentences." -: 0=No aphasia, normal -: 1=Mild to moderate aphasia. -: 2=Severe aphasia -: 3=Mute, global aphasia, no usable speech or auditory comprehension. 9. Responses: 0 10. Articulation, Dysarthia: Instruct patient to: -: "Read these words" or "Repeat these words" -: 0=Normal -: 1=Mild to moderate; patient may slur some words but can be understood without difficulty. -: 2=Severe; patients speech so slurred as to be unintelligible in the absence of dysphasia. -: UN=Intubated or other physical barrier, explain in comments. 10. Responses: 1 11. Extinction or inattention: 0=No abnormality -: 1= Visual, tactile, auditory, spatial, or personal inattention or extinction to bilateral simulation in one or the sensory modalities. -: 2=Profound ronald-inattention or ronald-inattention to more than one modality; does not recognize own hand. 11. Responses: 0 Total Score: 1
[2019-07-10] MEDS ORDERED: DILTIAZEM HCL/D5W 125 MG/125 ML RTUINJ IV ONE (18:14)
[2019-07-10] MEDS ORDERED: DILTIAZEM HCL INJ 25 MG/5 ML VIAL ONE (18:14)
[2019-07-10 18:25] LABS: INTERNATIONAL RATION (INR) 1.23; PROTHROMBIN TIME 15.6 SEC (11.4-15.4)
--- NOTE | 2019-07-10 18:25 | RADIOLOGY REPORT (SQ) ---
EXAM DESCRIPTION: CHEST SINGLE VIEW COMPLETED DATE/TIME: 07/10/2019 6:13 pm REASON FOR STUDY: Stroke alert COMPARISON: None. EXAM PARAMETERS: NUMBER OF VIEWS: One view. TECHNIQUE: Single frontal radiographic view of the chest acquired. RADIATION DOSE: NA LIMITATIONS: None. FINDINGS: LUNGS AND PLEURA: No pneumothorax. Small areas of left basilar airspace disease-subsegmen kortney atelectasis. No significant pleural effusion. MEDIASTINUM AND HILAR STRUCTURES: Age-appropriate contour. HEART AND VASCULAR STRUCTURES: Heart upper limits of normal in size. Normal vasculature. BONES: No acute findings. HARDWARE: None in the chest. OTHER: No other significant finding. IMPRESSION: Small areas of left basilar airspace disease-subsegmental atelectasis. No significant p leural effusion. TECHNICAL DOCUMENTATION: JOB ID: [id number] [id number] 2010 [employer]- All Rights Reserved Reading location - IP/workstation name: [email or web address]
[2019-07-10 18:26] LABS: PARTIAL THROMBOPLASTIN TIME 36.7 SEC (23.5-35.8)
--- NOTE | 2019-07-10 18:30 | RADIOLOGY REPORT (SQ) ---
EXAM DESCRIPTION: CT HEAD WITHOUT COMPLETED DATE/TIME: 07/10/2019 6:15 pm REASON FOR STUDY: Stroke alert COMPARISON: None. TECHNIQUE: Axial images acquired through the brain without intravenous contrast. Images reviewed wit h bone, brain and subdural windows. Images stored on PACS. All CT scanners at this facility use dose modulation, iterative reconstruction, and/or weight based d osing when appropriate to reduce radiation dose to as low as reasonably achievable (ALARA). [facility]: Dose Right [facility]: CareDose [facility]: Dose Right [facility]: Teradose 4D [facility]: SimpleTherapy RADIATION DOSE: CT Rad equipment meets quality standard of care and radiation dose reduction techniq ues were employed. CTDIvol: 53.2 mGy. DLP: 1476 mGy-cm.. LIMITATIONS: None. FINDINGS: VENTRICLES: Normal size and contour. CEREBRUM: No masses. No hemorrhage. No midline shift. Age appropriate white matter. No evidence for a cute infarction. CEREBELLUM: No masses. No hemorrhage. No alteration of density. No evidence for acute infarction. EXTRA-AXIAL SPACES: No fluid collections. ORBITS AND GLOBE: No intra- or extraconal masses. Normal contour of globe without masses. CALVARIUM: No fracture. PARANASAL SINUSES: No fluid or mucosal thickening. SOFT TISSUES: No mass or hematoma. OTHER: No other significant finding. IMPRESSION: NO ACUTE INTRACRANIAL FINDINGS. EVIDENCE OF ACUTE STROKE: NO. COMMENT: The findings were sent to the Radiology Results Communication Center at 18:23 on 07/10/2019 to be communicated to a licensed caregiver. TECHNICAL DOCUMENTATION: JOB ID: [id number] [place]-72 Quality ID # [id number]: Final reports with documentation of one or more dose reduction techniques (e.g., Au tomated exposure control, adjustment of the mA and/or kV according to patient size, use of iterative reconstruction technique) 2010 [employer]- All Rights Reserved Reading location - IP/workstation name: [email or web address]!
[2019-07-10 18:33] LABS: HEMATOCRIT 39.6 % (37.9-51.0); HEMOGLOBIN 13.8 g/dL (13.5-17.0); MEAN CORPUSCULAR HEMOGLOBIN 33.7 pg (27.0-33.4); MEAN CORPUSCULAR VOLUME 96 fl (80-97); PLATELET COUNT 321 10^3/uL (150-450); RED BLOOD COUNT 4.11 10^6/uL (4.35-5.55); RED CELL DISTRIBUTION WIDTH 12.9 % (11.5-14.0); WHITE BLOOD COUNT 22.3 10^3/uL (4.0-10.5)
[2019-07-10 18:37] LABS: ALBUMIN 3.3 g/dL (3.5-5.0); ALKALINE PHOSPHATASE 83 U/L (38-126); ANION GAP 13 (5-19); ASPARTATE AMINO TRANSFERASE 31 U/L (17-59); BILIRUBIN,DIRECT 0.5 mg/dL (0.0-0.4); BILIRUBIN,TOTAL 1.8 mg/dL (0.2-1.3); BLOOD UREA NITROGEN 15 mg/dL (7-20); CALCIUM 8.8 mg/dL (8.4-10.2); CARBON DIOXIDE 21 mmol/L (22-30); CHLORIDE 94 mmol/L (98-107); GLUCOSE 175 mg/dL (75-110); POTASSIUM 4.6 mmol/L (3.6-5.0); TOTAL PROTEIN 7.4 g/dL (6.3-8.2)
--- NOTE | 2019-07-10 18:42 | ER Document Report ---
ED General - General Chief Complaint: General Weakness Stated Complaint: GENERAL WEAKNESS Time Seen by Provider: 07/10/19 17:41 Notes: 78-year-old male presents emergency department brought in by friend via private vehicle after he started clutching his chest at home and then fell to the ground. Friend states that his speech was somewhat slurred at the time and he was very weak. Friend was concerned that the patient may have had a stroke. Patient denies any pain, states he is not having chest pain, does not feel like his heart is racing. Family states that he has not been eating or drinking well for the past 2 weeks, fell over the last evening and was very weak and his had difficulty getting him back into bed. When asked why he has not been eating he says "just lazy I guess". Denies any history of stroke or heart attack. Only prior medical history that he admits is acid reflux. TRAVEL OUTSIDE OF THE [place] IN LAST 30 DAYS: No - Related Data Allergies/Adverse Reactions: No Known Allergies Allergy (Unverified 12/23/16 05:45) Past Medical History - General Information source: Patient, Relative, Friend - Social History Smoking Status: Former Smoker Frequency of alcohol use: Social Drug Abuse: None Lives with: Spouse/Significant other Family History: Hypertension Patient has suicidal ideation: No Patient has homicidal ideation: No Neurological Medical History: Denies: Hx Seizures Renal/ Medical History: Denies: Hx Peritoneal Dialysis GI Medical History: Reports: Hx Cirrhosis Psychiatric Medical History: Denies: Hx Depression Past Surgical History: Reports: Other - Peptic ulcer surgery abdominal midline scar Review of Systems - Review of Systems Constitutional: See HPI, Weakness EENT: No symptoms reported Cardiovascular: No symptoms reported Neurological/Psychological: See HPI - Slurred speech at home. -: Yes All other systems reviewed and negative Physical Exam - Vital signs Vitals: Pulse Resp BP Pulse Ox 165 H 18 110/89 H 94 07/10/19 17:36 07/10/19 17:36 07/10/19 17:36 07/10/19 17:36 Interpretation: Tachycardic - Notes Notes: GENERAL: Alert, interacts well. No acute distress. HEAD: Normocephalic, atraumatic EYES: Pupils equal, round and reactive to light, extraocular movements intact. ENT: Oral mucosa moist, tongue midline. NECK: Full range of motion, supple, trachea midline. LUNGS: Clear to auscultation bilaterally, no wheezes, rales or rhonchi, no respiratory distress. HEART: Tachycardic, irregularly irregular, no murmurs. ABDOMEN: Soft, nontender, nondistended, bowel sounds present in all 4 quadrants. EXTREMITIES: Moves all 4 extremities spontaneously, no edema, radial and dorsalis pedis pulses 2/4 bilaterally. No cyanosis. NEUROLOGICAL: Alert and oriented x2, does not know the year but knows Milena is the president, does not know his age but knows he was born in [birth year], normal speech, cranial nerves II through XII grossly intact, biceps and patellar DTRs 2+ bilaterally. Decreased sensation up to mid calf bilaterally in the lower extremities. Known history of neuropathy. Speech is not slurred for me. PSYCH: Normal mood, normal affect. SKIN: Warm, Dry, normal turgor, no rashes or lesions noted. Course - Re-evaluation Re-evalutation: 07/10/19 18:41 Currently I see no evidence of stroke. My NIH stroke scale does not show any slurred speech, patient gets 1 point on the NIH stroke scale for not being able to tell me how old he is however he is able to tell me his year of . At present I am concerned for dehydration and possibly infection. Patient will be hydrated to see if this improves his A. fib with RVR before we start trying to rate control with Cardizem. If hydration does not help then we will rate control with Cardizem. Patient is not hypotensive and is not unstable at present. 07/10/19 19:49 Patient's heart rate is still intermittently elevated despite giving 1-1/2 L of fluid, blood pressure has improved. Patient has A. fib with intermittently rapid ventricular response. This appears to be new onset. Patient will be given a bolus of Cardizem and started on a drip. Blood work shows leukocytosis of 22.3, INR slightly prolonged at 1.23, chemistry showed low sodium 128.0, CO2 low at 21, glucose elevated 175, total and direct bilirubin mildly elevated at 1.8 and 0.5 respectively, cardiac enzymes negative, urinalysis shows trace ketones and small bilirubin, no signs of infection. CT scan of the head is negative, chest x-ray shows left lower lobe haziness that radiology attributes to atelectasis however given the patient's leukocytosis, generalized weakness that is been worsening, intermittent mild hypoxia with pulse ox of 92% with good waveform at bedside I feel it is more prudent to treat this as a pneumonia with Levaquin. 07/10/19 21:26 Patient's heart rate is now 134, still atrial fibrillation, Cardizem drip is up to 15, treated patient with digoxin 0.125 mg IV and then discussed with hospitalist Dr. Silva for admission. He accepts the patient and requests another 0.375 mg of digoxin IV. Patient will be placed on the IMCU. 07/10/19 21:27 Lactic acid 2.3, indeterminate troponin. No chest pain. - Vital Signs Vital signs: Temp Pulse Resp BP Pulse Ox 99.4 F 160 H 26 H 141/78 H 94 07/10/19 17:40 07/10/19 18:07 07/10/19 21:06 07/10/19 21:06 07/10/19 21:06 - Laboratory Result Diagrams: 07/10/19 18:11 07/10/19 18:11 Laboratory results interpreted by me: 07/10/19 07/10/19 07/10/19 18:09 18:11 18:11 WBC 22.3 H RBC 4.11 L MCH 33.7 H Lymphocytes % (Manual) 11 L Abs Neuts (Manual) 17.4 H Abs Monocytes (Manual) 2.5 H PT 15.6 H APTT 36.7 H VBG pCO2 Sodium Chloride Carbon Dioxide Glucose POC Glucose 198 H Lactic Acid Total Bilirubin Direct Bilirubin Ammonia Albumin Urine Ketones Urine Bilirubin Urine Urobilinogen 07/10/19 07/10/19 07/10/19 18:11 18:40 19:23 WBC RBC MCH Lymphocytes % (Manual) Abs Neuts (Manual) Abs Monocytes (Manual) PT APTT VBG pCO2 Sodium 128.0 L Chloride 94 L Carbon Dioxide 21 L Glucose 175 H POC Glucose Lactic Acid 2.3 H Total Bilirubin 1.8 H Direct Bilirubin 0.5 H Ammonia Albumin 3.3 L Urine Ketones TRACE H Urine Bilirubin SMALL H Urine Urobilinogen 4.0 H 07/10/19 07/10/19 19:23 19:23 WBC RBC MCH Lymphocytes % (Manual) Abs Neuts (Manual) Abs Monocytes (Manual) PT APTT VBG pCO2 33.3 L Sodium Chloride Carbon Dioxide Glucose POC Glucose Lactic Acid Total Bilirubin Direct Bilirubin Ammonia < 8.7 L Albumin Urine Ketones Urine Bilirubin Urine Urobilinogen - EKG Interpretation by Me Additional EKG results interpreted by me: 07/10/19 18:42 EKG shows atrial fibrillation with rapid ventricular response at a rate of 164, left axis deviation, normal R wave progression, no ST segment elevations or depressions per my interpretation. Critical Care Note - Critical Care Note Total time excluding time spent on procedures (mins): 55 Discharge - Discharge Clinical Impression: Atrial fibrillation with RVR, Hyponatremia, Generalized weakness Left lower lobe pneumonia Qualifiers: Pneumonia type: due to unspecified organism Qualified Code(s): J18.1 - Lobar pneumonia, unspecified organism Condition: Fair Disposition: ADMITTED INPATIENT Admitting Provider: Shira (Hospitalist) Unit Admitted: [facility]
[2019-07-10 18:53] LABS: ABSOLUTE LYMPHOCYTES# (MANUAL) 2.5 10^3/uL (0.5-4.7); ABSOLUTE MONOCYTES # (MANUAL) 2.5 10^3/uL (0.1-1.4); BASOPHILS % (MANUAL) 0 % (0-2); EOSINOPHILS % (MANUAL) 0 % (0-6); LYMPHOCYTES % (MANUAL) 11 % (13-45); MONOCYTES % (MANUAL) 11 % (3-13); SEGMENTED NEUTROPHILS % (MAN) 78 % (42-78); TOTAL CELLS COUNTED 100
[2019-07-10 18:55] LABS: PLATELET COMMENT ADEQUATE; POLYCHROMASIA SLIGHT; TOXIC GRANULATION 2+; TROPONIN I < 0.012 ng/mL
[2019-07-10 19:05] LABS: APPEARANCE,URINE SLIGHTLY-CLOUDY; BILIRUBIN,URINE SMALL (NEGATIVE); COLOR,URINE AMBER; GLUCOSE, URINE NEGATIVE (NEGATIVE); KETONES,URINE TRACE mg/dL (NEGATIVE); LEUKOCYTE ESTERASE,URINE NEGATIVE (NEGATIVE); NITRITE,URINE NEGATIVE (NEGATIVE); PROTEIN,URINE NEGATIVE (NEGATIVE); URINE SPECIFIC GRAVITY 1.024
[2019-07-10] MEDS: RINGERS SOLUTION,LACTATED 1,000 ML IV PRN ×2 (19:11→19:12)
[2019-07-10] MEDS ORDERED: DILTIAZEM HCL INJ 25 MG/5 ML VIAL IV ONE (19:17)
[2019-07-10] MEDS ORDERED: LEVOFLOXACIN 750 MG/D5W RTU 750 MG/150 ML RTUPB IV ONE ×2 (19:37→23:59)
[2019-07-10] MEDS ORDERED: NORMAL SALINE 500 ML IV ONE (19:39)
[2019-07-10 19:53] LABS: VENOUS BLOOD BASE EXCESS -3.1 mmol/L; VENOUS BLOOD HCO3 20.7 mmol/L (20-32); VENOUS BLOOD PCO2 33.3 mmHg (35-63); VENOUS BLOOD PH 7.41 (7.30-7.42)
[2019-07-10] MEDS: DILTIAZEM HCL/D5W 125 MG/125 ML RTUINJ IV PRN (20:06)
[2019-07-10] MEDS ORDERED: DIGOXIN INJ 0.5 MG/2 ML AMPULE IV ONE ×2 (21:05→21:25)
--- NOTE | 2019-07-10 22:27 | EKG REPORT ---
SEVERITY:- ABNORMAL ECG - ATRIAL FIBRILLATION WITH RAPID V-RATE : Confirmed by: Dominic Calhoun MD 10-Jul-2019 22:26:35
[2019-07-10] MEDS ORDERED: MAG HYDROX/AL HYDROX/SIMETH SUSP 30 ML UDCUP PO PRN (23:33)
[2019-07-10] MEDS ORDERED: NALBUPHINE HCL INJ 10 MG/1 ML AMPULE IV PRN ×3 (23:33→23:44)
[2019-07-10] MEDS ORDERED: MAGNESIUM HYDROXIDE SUSP 30 ML UDCUP PO PRN (23:33)
[2019-07-10] MEDS ORDERED: CHLORPROMAZINE HCL INJ 25 MG/1 ML AMPULE IV PRN (23:33)
[2019-07-10] MEDS ORDERED: LEVALBUTEROL HCL NEB 0.63 MG/3 ML AMPUL NEB PRN (23:33)
[2019-07-10] MEDS ORDERED: ACETAMINOPHEN 325 MG TABLET PO PRN (23:33)
[2019-07-10] MEDS ORDERED: GUAIFENESIN SYRP 200 MG/10 ML UDC PO PRN (23:38)
[2019-07-10] MEDS ORDERED: DEXTROSE 40% GEL 15 GM TUBE PO PRN ×2 (23:55)
[2019-07-10] MEDS ORDERED: GLUCAGON,HUMAN RECOMB 1 MG INJ IM PRN (23:55)
[2019-07-10] MEDS ORDERED: DEXTROSE 50%-WATER 25 GM/50 ML DISP.SYRIN IV PRN ×2 (23:55)
[2019-07-10] MEDS ORDERED: METOPROLOL TARTRATE 50 MG TABLET PO ONE (23:59)
[2019-07-10] MEDS ORDERED: CEFTRIAXONE 1 GM/D5W RTU 1 GM/50 ML RTUPB IV ONE (23:59)
[2019-07-11] MEDS ORDERED: PROMETHAZINE HCL INJ 25 MG/1 ML VIAL IV PRN (00:13)
[2019-07-11] MEDS: IPRATROPIUM BROMIDE 0.02% NEB 0.5 MG/2.5 ML AMPUL NEB SCH ×3 (00:13→16:24)
[2019-07-11] MEDS: LEVALBUTEROL HCL NEB 1.25 MG/3 ML AMPUL NEB SCH ×3 (00:13→16:24)
[2019-07-11] MEDS: RINGERS SOLUTION,LACTATED 1,000 ML IV PRN ×2 (00:33→13:43)
[2019-07-11 01:02] LABS: FREE T3 4.18 pg/mL (2.77-5.27); FREE T4 (FREE THYROXINE) 2.01 ng/dL (0.78-2.19)
[2019-07-11 01:23] LABS: DIGOXIN 1.13 ng/mL (0.8-2.0)
[2019-07-11 01:39] LABS: CREATINE KINASE MB 0.92 ng/mL (<4.55)
[2019-07-11 01:41] LABS: TROPONIN I < 0.012 ng/mL
[2019-07-11] MEDS ORDERED: METOPROLOL TARTRATE 50 MG TABLET ONE (02:02)
[2019-07-11] MEDS: DIAZEPAM INJ 10 MG/2 ML DISP.SYRIN IV PRN ×2 (03:29→21:09)
[2019-07-11] MEDS: DILTIAZEM HCL/D5W 125 MG/125 ML RTUINJ IV PRN (03:29)
--- NOTE | 2019-07-11 03:59 | PDOC H&P ---
History of Present Illness Admission Date/PCP: 07/10/19 21:42 Dr. Heller Patient complains of: Weakness History of Present Illness: MARISSA CORONA is a 78 year old male who presented to the emergency room with a 2-week history of weakness. Patient and his family admit that for the last 2 w eeks he has suffered from episodic weakness which is been progressively worsening. Today his weakness was severe such that when it came on suddenly he clutched his chest and fell to the ground requiring assistance of another person to get back on his feet. He also reports a similar episode last evening. His episodic weakness has been accompanied by a decrease in his oral intake. He denies other associated or accompanying signs and symptoms. He denies prior similar episodes and has not identified any aggravating or ameliorating factors for his weakness. In the emergency room he was found to have atrial fibrillation with a rapid ventricular response, hypoxia, an elevated lactic acid as well as an elevated white blood count with a possible pneumonia. He was treated with IV antibiotics using Levaquin and was started on a diltiazem infusion after receiving a bolus dose. He was additionally given an intravenous dose of digoxin. He was subsequently admitted to [facility] for further evaluation and treatment. Past Medical History Cardiac Medical History: Denies: Atrial Fibrillation, Coronary Artery Disease, Myocardial Infarction, Hypertension Pulmonary Medical History: Denies: Asthma, Chronic Obstructive Pulmonary Disease (COPD), Respiratory Failure EENT Medical History: Denies: Cataracts, Ears - Hearing aids Neurological Medical History: Denies: Hemorrhagic CVA, Ischemic CVA, Seizures Endocrine Medical History: Denies: Diabetes Mellitus Type 1, Diabetes Mellitus Type 2, Hyperthyroidism, Hypothyroidism Renal/ Medical History: Denies: Chronic Kidney Disease, Nephrolithiasis Malignancy Medical History: Reports: None GI Medical History: Reports: Cirrhosis, Gastroesophageal Reflux Disease, Peptic Ulcer Disease, Other - History of upper GI bleed Denies: Crohn's Disease, Hepatitis, Ulcerative Colitis Musculoskeltal Medical History: Denies: Arthritis, Gout Skin Medical History: Denies: Eczema, Psoriasis Psychiatric Medical History: Reports: Alcohol Dependency Denies: Depression, Substance Abuse, Tobacco Dependency Traumatic Medical History: Reports: None Hematology: Denies: Anemia, Bleeding Tendencies Infectious Medical History: Reports: None Past Surgical History Past Surgical History: Reports: Other - Peptic ulcer surgery abdominal midline scar Social History Information Source: Patient Lives with: Spouse/Significant other Smoking Status: Former Smoker Frequency of Alcohol Use: Heavy - Patient evasive but admits to drinking heavily on a daily basis Hx Recreational Drug Use: No Drugs: None Hx Prescription Drug Abuse: No - Advance Directive Resuscitation Status: Full Code Surrogate healthcare decision maker:: Genoveva Portillo Family History Family History: Hypertension. denies: CAD, DM, Malignancy Parental Family History Reviewed: Yes Children Family History Reviewed: No Sibling(s) Family History Reviewed.: Yes Medication/Allergy Home Medications: Multivitamin [Tab-A-Glenny (Multiple Vitamin) Tablet] 1 tab PO DAILY 12/23/16 Pantoprazole Sodium [Protonix] 40 mg PO BID #60 tablet. 12/24/16 Allergies/Adverse Reactions: No Known Allergies Allergy (Unverified 12/23/16 05:45) Review of Systems Constitutional: PRESENT: as per HPI, weakness. ABSENT: chills, fever(s) Eyes: ABSENT: visual disturbances, other - Eye pain Ears: ABSENT: hearing changes, other - Ear pain Nose, Mouth, and Throat: ABSENT: mouth pain, sore throat Cardiovascular: ABSENT: chest pain, dyspnea on exertion, edema, orthropnea, palpitations Respiratory: ABSENT: cough, dyspnea Gastrointestinal: ABSENT: abdominal pain, constipation, diarrhea, nausea, vomiting Genitourinary: ABSENT: dysuria, hematuria Musculoskeletal: PRESENT: as per HPI, muscle weakness. ABSENT: back pain, joint swelling Integumentary: ABSENT: pruritus, rash Neurological: PRESENT: as per HPI, weakness. ABSENT: confusion, convulsions, focal weakness, memory loss, syncope Psychiatric: ABSENT: anxiety, depression Endocrine: ABSENT: cold intolerance, heat intolerance Hematologic/Lymphatic: ABSENT: easy bleeding, easy bruising Allergic/Immunologic: ABSENT: seasonal rhinorrhea Physical Exam Vital Signs: Temp Pulse Resp BP Pulse Ox 99.4 F 160 H 20 131/68 H 94 07/10/19 17:40 07/10/19 18:07 07/10/19 22:51 07/10/19 22:51 07/10/19 22:51 Intake & Output 07/08/19 07/09/19 07/10/19 23:59 23:59 23:59 Intake Total 2506 Output Total 375 Balance 2131 Weight 108.3 kg General appearance: PRESENT: no acute distress, cooperative Head exam: PRESENT: atraumatic, normocephalic Eye exam: PRESENT: conjunctiva pink. ABSENT: conjunctival injection, scleral icterus Ear exam: PRESENT: normal external ear exam. ABSENT: bleeding, drainage Mouth exam: PRESENT: dry mucosa, neck supple Neck exam: ABSENT: thyromegaly, tracheal deviation Respiratory exam: PRESENT: clear to auscultation abhilash, symmetrical, unlabored Cardiovascular exam: PRESENT: irregular rhythm - Irregularly irregular rate and rhythm, tachycardia. ABSENT: clicks, gallop, rubs Pulses: PRESENT: normal radial pulses, normal dorsalis pedis pul Vascular exam: PRESENT: normal capillary refill. ABSENT: pallor GI/Abdominal exam: PRESENT: normal bowel sounds, soft Rectal exam: PRESENT: deferred Extremities exam: ABSENT: joint swelling, pedal edema Musculoskeletal exam: ABSENT: deformity, dislocation Neurological exam: PRESENT: alert, oriented to person, oriented to place, oriented to time, oriented to situation, CN II-XII grossly intact. ABSENT: motor sensory deficit Psychiatric exam: PRESENT: appropriate affect, normal mood Skin exam: PRESENT: dry, intact, warm. ABSENT: jaundice, rash, urticaria Results Laboratory Results: 07/10/19 18:11 07/10/19 18:11 07/10/19 07/10/19 07/10/19 18:11 18:11 18:40 WBC 22.3 H RBC 4.11 L Hgb 13.8 Hct 39.6 MCV 96 MCH 33.7 H MCHC 35.0 RDW 12.9 Plt Count 321 Seg Neutrophils % Not Reportable VBG pH VBG pCO2 VBG HCO3 VBG Base Excess Sodium 128.0 L Potassium 4.6 Chloride 94 L Carbon Dioxide 21 L Anion Gap 13 BUN 15 Creatinine 1.13 Est GFR ( Amer) > 60 Glucose 175 H Lactic Acid Calcium 8.8 Total Bilirubin 1.8 H AST 31 Alkaline Phosphatase 83 Ammonia Total Protein 7.4 Albumin 3.3 L Urine Color GABRIELA Urine Appearance SLIGHTLY-CLOUDY Urine pH 5.0 Ur Specific [place] 1.024 Urine Protein NEGATIVE Urine Glucose (UA) NEGATIVE Urine Ketones TRACE H Urine Blood NEGATIVE Urine Nitrite NEGATIVE Ur Leukocyte Esterase NEGATIVE Urine WBC (Auto) 2 Urine RBC (Auto) 1 07/10/19 07/10/19 07/10/19 19:23 19:23 19:23 WBC RBC Hgb Hct MCV MCH MCHC RDW Plt Count Seg Neutrophils % VBG pH 7.41 VBG pCO2 33.3 L VBG HCO3 20.7 VBG Base Excess -3.1 Sodium Potassium Chloride Carbon Dioxide Anion Gap BUN Creatinine Est GFR ( Amer) Glucose Lactic Acid 2.3 H Calcium Total Bilirubin AST Alkaline Phosphatase Ammonia < 8.7 L Total Protein Albumin Urine Color Urine Appearance Urine pH Ur Specific [place] Urine Protein Urine Glucose (UA) Urine Ketones Urine Blood Urine Nitrite Ur Leukocyte Esterase Urine WBC (Auto) Urine RBC (Auto) 07/10/19 18:11 CK-MB (CK-2) 1.20 Troponin I < 0.012 Impressions: Chest X-Ray 07/10/19 17:56 IMPRESSION: Small areas of left basilar airspace disease-subsegmental atelectasis. No significant pleural effusion. Head CT 07/10/19 17:56 IMPRESSION: NO ACUTE INTRACRANIAL FINDINGS. EVIDENCE OF ACUTE STROKE: NO. Assessment and Plan - Diagnosis (1) Atrial fibrillation with RVR Is this a current diagnosis for this admission?: Yes Plan: Patient will be treated with a diltiazem infusion and he has already received IV digoxin. IV metoprolol and oral Toprol will be considered if needed for additional rate control. Patient be monitored closely in ICU and daily metabolic profiles and CBCs will be obtained. Serial cardiac enzymes will also be obtained. A daily digoxin level will be obtained. Patient will also be started on anticoagulation therapy using Eliquis. (2) Left lower lobe pneumonia Qualifiers: Pneumonia type: due to unspecified organism Qualified Code(s): J18.1 - Lobar pneumonia, unspecified organism Is this a current diagnosis for this admission?: Yes Plan: Patient's pneumonia be treated with Levaquin 750 mg IV daily. He will also receive nebulized Xopenex, Atrovent and Mucomyst. He will receive supplemental oxygen as required. Serial lactic acid levels will be obtained. Daily CBCs will be obtained. (3) Acute respiratory failure with hypoxia Is this a current diagnosis for this admission?: Yes Plan: Patient will be treated with supplemental oxygen via nasal cannula and or noninvasive airway pressure support devices such as BiPAP. His O2 sat will be maintained at greater than 93% and his O2 saturation level will be checked frequently throughout his hospital course. ABGs and or venous blood gases will be obtained as required. (4) Hyponatremia Is this a current diagnosis for this admission?: Yes Plan: Patient will receive IV fluids containing sodium for repletion of his serum sodium to a normal level. Metabolic profiles to be followed on a daily basis. (5) Alcohol dependence Qualifiers: Substance use status: uncomplicated Qualified Code(s): F10.20 - Alcohol dependence, uncomplicated Is this a current diagnosis for this admission?: Yes Plan: The patient will be observed closely for any evidence of withdrawal symptoms developing. He will have available Valium 10 mg IV nightly hour PRN severe tremors or anxiety and chlorpromazine 25 mg IV every 8 hours as needed agitation or hallucinations. - Time Time Spent with patient: 25-34 minutes Medications reviewed and adjusted accordingly: Yes Anticipated discharge: Home - Inpatient Certification Based on my medical assessment, after consideration of the patient's comorbidities, presenting symptoms, or acuity I expect that the services needed warrant INPATIENT care.: Yes I certify that my determination is in accordance with my understanding of Medicare's requirements for reasonable and necessary INPATIENT services [42 CFR 412.3e].: Yes Medical Necessity: Need Close Monitoring Due to Risk of Patient Decompensation, Need For IV Fluids, Need For Continuous Telemetry Monitoring, Need for Nebulizer Therapy and Monitoring of Response, Need for IV Antibiotics, Risk of Complication if Not Cared For in Hospital
[2019-07-11] MEDS: PANTOPRAZOLE SODIUM 40 MG TABLET.DR PO SCH ×2 (05:40→17:05)
--- NOTE | 2019-07-11 06:33 | EKG REPORT ---
SEVERITY:- ABNORMAL ECG - A-FLUTTER W/ PREDOM 4:1 AV BLOCK, A-RATE 300 : Confirmed by: Dominic Calhoun MD 11-Jul-2019 06:32:22
[2019-07-11 08:05] LABS: VENOUS BLOOD BASE EXCESS 0.4 mmol/L; VENOUS BLOOD HCO3 22.7 mmol/L (20-32); VENOUS BLOOD PCO2 30.3 mmHg (35-63); VENOUS BLOOD PH 7.49 (7.30-7.42)
[2019-07-11 08:11] LABS: HEMATOCRIT 35.9 % (37.9-51.0); HEMOGLOBIN 12.4 g/dL (13.5-17.0); MEAN CORPUSCULAR HEMOGLOBIN 33.7 pg (27.0-33.4); MEAN CORPUSCULAR HGB CONC 34.6 g/dL (32.0-36.0); MEAN CORPUSCULAR VOLUME 97 fl (80-97); PLATELET COUNT 250 10^3/uL (150-450); RED BLOOD COUNT 3.69 10^6/uL (4.35-5.55); RED CELL DISTRIBUTION WIDTH 12.8 % (11.5-14.0); WHITE BLOOD COUNT 17.1 10^3/uL (4.0-10.5)
[2019-07-11 08:26] LABS: ANION GAP 9 (5-19); BLOOD UREA NITROGEN 14 mg/dL (7-20); CALCIUM 8.1 mg/dL (8.4-10.2); CARBON DIOXIDE 22 mmol/L (22-30); CHLORIDE 99 mmol/L (98-107); CHOLESTEROL 130.74 mg/dL (0-200); CREATINE KINASE 98 U/L (55-170); GLUCOSE 146 mg/dL (75-110); POTASSIUM 4.4 mmol/L (3.6-5.0); TRIGLYCERIDES 78 mg/dL (<150)
[2019-07-11 08:38] LABS: DIRECT LDL 97 mg/dL (<100)
[2019-07-11 08:39] LABS: CREATINE KINASE MB 1.11 ng/mL (<4.55)
[2019-07-11 08:40] LABS: TROPONIN I < 0.012 ng/mL
[2019-07-11] MEDS: ACETYLCYSTEINE 20% SOLN 800 MG/4 ML VIAL.NEB NEB SCH ×2 (08:49→20:23)
[2019-07-11] MEDS: APIXABAN 5 MG TABLET PO SCH ×2 (09:18→17:05)
[2019-07-11] MEDS: DIGOXIN 0.25 MG TABLET PO SCH (09:18)
[2019-07-11] MEDS: METOPROLOL TARTRATE 100 MG TABLET PO SCH (09:18)
[2019-07-11] MEDS: DILTIAZEM HCL 90 MG TABLET PO SCH ×3 (09:19→17:05)
[2019-07-11] MEDS: INSULIN REG, HUMAN 100 UNIT/ML 3 ML VIAL (PYX) SUBCUT SCH ×3 (09:21→17:04)
--- NOTE | 2019-07-11 09:55 | PDOC PROGRESS REPORT ---
Subjective Progress Note for:: 07/11/19 Subjective:: 78-year-old male admitted for new onset atrial fib and generalized weakness x 2 weeks. Patient was also found to have a possible left lower lobe pneumonia. Reason For Visit: PNEUMONIA, AFIB WITH RVR Physical Exam Vital Signs: Temp Pulse Resp BP Pulse Ox 98.7 F 74 14 109/52 L 92 07/11/19 00:13 07/11/19 08:49 07/11/19 08:49 07/11/19 06:00 07/11/19 08:49 Intake & Output 07/10/19 07/11/19 07/12/19 06:59 06:59 06:59 Intake Total 2805 Output Total 1050 Balance 1755 Weight 110.4 kg General appearance: PRESENT: mild distress Respiratory exam: PRESENT: rhonchi, other - Patient is speaking in full sentences this morning. Patient states he feels better today than yesterday Cardiovascular exam: PRESENT: irregular rhythm Neurological exam: PRESENT: alert, awake, oriented to person, oriented to place, oriented to time, oriented to situation, CN II-XII grossly intact. ABSENT: motor sensory deficit Psychiatric exam: PRESENT: appropriate affect, normal mood. ABSENT: homicidal ideation, suicidal ideation Results Laboratory Results: 07/11/19 07:46 07/11/19 07:46 07/10/19 07/10/19 07/10/19 18:11 18:11 18:11 WBC 22.3 H RBC 4.11 L Hgb 13.8 Hct 39.6 MCV 96 MCH 33.7 H MCHC 35.0 RDW 12.9 Plt Count 321 Seg Neutrophils % Not Reportable VBG pH VBG pCO2 VBG HCO3 VBG Base Excess Sodium 128.0 L Potassium 4.6 Chloride 94 L Carbon Dioxide 21 L Anion Gap 13 BUN 15 Creatinine 1.13 Est GFR ( Amer) > 60 Glucose 175 H Lactic Acid Calcium 8.8 Magnesium Total Bilirubin 1.8 H AST 31 Alkaline Phosphatase 83 Ammonia Total Protein 7.4 Albumin 3.3 L Triglycerides Cholesterol LDL Cholesterol Direct VLDL Cholesterol HDL Cholesterol TSH Free T4 2.01 Free T3 pg/mL 4.18 Urine Color Urine Appearance Urine pH Ur Specific [place] Urine Protein Urine Glucose (UA) Urine Ketones Urine Blood Urine Nitrite Ur Leukocyte Esterase Urine WBC (Auto) Urine RBC (Auto) 07/10/19 07/10/19 07/10/19 18:40 19:23 19:23 WBC RBC Hgb Hct MCV MCH MCHC RDW Plt Count Seg Neutrophils % VBG pH VBG pCO2 VBG HCO3 VBG Base Excess Sodium Potassium Chloride Carbon Dioxide Anion Gap BUN Creatinine Est GFR ( Amer) Glucose Lactic Acid 2.3 H Calcium Magnesium Total Bilirubin AST Alkaline Phosphatase Ammonia < 8.7 L Total Protein Albumin Triglycerides Cholesterol LDL Cholesterol Direct VLDL Cholesterol HDL Cholesterol TSH Free T4 Free T3 pg/mL Urine Color GABRIELA Urine Appearance SLIGHTLY-CLOUDY Urine pH 5.0 Ur Specific [place] 1.024 Urine Protein NEGATIVE Urine Glucose (UA) NEGATIVE Urine Ketones TRACE H Urine Blood NEGATIVE Urine Nitrite NEGATIVE Ur Leukocyte Esterase NEGATIVE Urine WBC (Auto) 2 Urine RBC (Auto) 1 07/10/19 07/10/19 07/11/19 19:23 23:40 03:45 WBC RBC Hgb Hct MCV MCH MCHC RDW Plt Count Seg Neutrophils % VBG pH 7.41 VBG pCO2 33.3 L VBG HCO3 20.7 VBG Base Excess -3.1 Sodium Potassium Chloride Carbon Dioxide Anion Gap BUN Creatinine Est GFR ( Amer) Glucose Lactic Acid 2.1 2.3 H Calcium Magnesium Total Bilirubin AST Alkaline Phosphatase Ammonia Total Protein Albumin Triglycerides Cholesterol LDL Cholesterol Direct VLDL Cholesterol HDL Cholesterol TSH Free T4 Free T3 pg/mL Urine Color Urine Appearance Urine pH Ur Specific [place] Urine Protein Urine Glucose (UA) Urine Ketones Urine Blood Urine Nitrite Ur Leukocyte Esterase Urine WBC (Auto) Urine RBC (Auto) 07/11/19 07/11/19 07/11/19 07:46 07:46 07:46 WBC 17.1 H RBC 3.69 L Hgb 12.4 L Hct 35.9 L MCV 97 MCH 33.7 H MCHC 34.6 RDW 12.8 Plt Count 250 Seg Neutrophils % VBG pH VBG pCO2 VBG HCO3 VBG Base Excess Sodium 129.5 L Potassium 4.4 Chloride 99 Carbon Dioxide 22 Anion Gap 9 BUN 14 Creatinine 0.86 Est GFR ( Amer) > 60 Glucose 146 H Lactic Acid Calcium 8.1 L Magnesium 2.0 Total Bilirubin AST Alkaline Phosphatase Ammonia Total Protein Albumin Triglycerides 78 Cholesterol 130.74 LDL Cholesterol Direct 97 VLDL Cholesterol 16.0 HDL Cholesterol 36 L TSH 1.32 Free T4 Free T3 pg/mL Urine Color Urine Appearance Urine pH Ur Specific [place] Urine Protein Urine Glucose (UA) Urine Ketones Urine Blood Urine Nitrite Ur Leukocyte Esterase Urine WBC (Auto) Urine RBC (Auto) 07/11/19 07/11/19 07:46 07:46 WBC RBC Hgb Hct MCV MCH MCHC RDW Plt Count Seg Neutrophils % VBG pH 7.49 H VBG pCO2 30.3 L VBG HCO3 22.7 VBG Base Excess 0.4 Sodium Potassium Chloride Carbon Dioxide Anion Gap BUN Creatinine Est GFR ( Amer) Glucose Lactic Acid 1.9 Calcium Magnesium Total Bilirubin AST Alkaline Phosphatase Ammonia Total Protein Albumin Triglycerides Cholesterol LDL Cholesterol Direct VLDL Cholesterol HDL Cholesterol TSH Free T4 Free T3 pg/mL Urine Color Urine Appearance Urine pH Ur Specific [place] Urine Protein Urine Glucose (UA) Urine Ketones Urine Blood Urine Nitrite Ur Leukocyte Esterase Urine WBC (Auto) Urine RBC (Auto) 07/10/19 07/11/19 07/11/19 18:11 00:37 00:37 Creatine Kinase 108 CK-MB (CK-2) 1.20 0.92 Troponin I < 0.012 < 0.012 07/11/19 07/11/19 07:46 07:46 Creatine Kinase 98 CK-MB (CK-2) 1.11 Troponin I < 0.012 Impressions: Chest X-Ray 07/10/19 17:56 IMPRESSION: Small areas of left basilar airspace disease-subsegmental atelectasis. No significant pleural effusion. Head CT 07/10/19 17:56 IMPRESSION: NO ACUTE INTRACRANIAL FINDINGS. EVIDENCE OF ACUTE STROKE: NO. Assessment and Plan - Diagnosis (1) Atrial fibrillation with RVR Is this a current diagnosis for this admission?: Yes Plan: Patient will be treated with a diltiazem infusion and he has already received IV digoxin. IV metoprolol and oral Toprol will be considered if needed for additio nal rate control. Patient be monitored closely in ICU and daily metabolic profiles and CBCs will be obtained. Serial cardiac enzymes will also be obtained. A daily digoxin level will be obtained. Patient will also be started on anticoagulation therapy using Eliquis. 07/11/2019 patient new onset atrial fib patient is been hard to regulate with IV Cardizem. Previous physician ordered digoxin and patient is now being converted to p.o. Cardizem. Last night pulse rates were in the low 100s, he appears to have converted last night around 0400 and is now in the 70s. Patient is also now on Eliquis. Patient has requested to be seen by Dr. Cowart, cardiology. I have called Dr. Cowart and he states he would be glad to see him in consultation either today or tomorrow in the hospital. Patient's already sees Dr. Cowart herself (2) Generalized weakness Is this a current diagnosis for this admission?: Yes Plan: 07/11/2019 vision and his states that he has been weak for the last 2 weeks and also had decreased appetite patient did not start feeling the palpitations and chest pain until yesterday. Has apparent new atrial fib and left lower lobe pneumonia possibly (3) Hyponatremia Is this a current diagnosis for this admission?: Yes (4) Left lower lobe pneumonia Qualifiers: Pneumonia type: due to unspecified organism Qualified Code(s): J18.1 - Lobar pneumonia, unspecified organism Is this a current diagnosis for this admission?: Yes Plan: Patient's pneumonia be treated with Levaquin 750 mg IV daily. He will also receive nebulized Xopenex, Atrovent and Mucomyst. He will receive supplemental oxygen as required. Serial lactic acid levels will be obtained. Daily CBCs will be obtained. 07/11/2019 patient had a high white count of 22,300. Patient was started on IV Levaquin and IV Rocephin. Patient's chest x-ray shows a small left basilar area of airspace disease with either atelectasis or possible pneumonia Patient is being converted to p.o. metoprolol (5) Alcohol dependence Qualifiers: Substance use status: uncomplicated Qualified Code(s): F10.20 - Alcohol dependence, uncomplicated Is this a current diagnosis for this admission?: Yes Plan: The patient will be observed closely for any evidence of withdrawal symptoms developing. He will have available Valium 10 mg IV nightly hour PRN severe trem ors or anxiety and chlorpromazine 25 mg IV every 8 hours as needed agitation or hallucinations. 07/11/2019 see the note dictated above. Hoarding to the patient he drinks beer (6) Hyponatremia Is this a current diagnosis for this admission?: Yes Plan: Patient patient's sodium was 129.5 - Time Time Spent with patient: 35 or more minutes - Call Dr. Cowart's office today he said he would be glad to see the patient in consultation echo is pending.
[2019-07-11] MEDS ORDERED: ONDANSETRON 4 MG TAB.RAPDIS PO PRN (09:59)
[2019-07-11] MEDS ORDERED: ONDANSETRON HCL INJ/PF 4 MG/2 ML SDV IV PRN (09:59)
[2019-07-11 14:05] LABS: CREATINE KINASE MB 1.02 ng/mL (<4.55)
[2019-07-11 14:10] LABS: TROPONIN I < 0.012 ng/mL
[2019-07-11] MEDS ORDERED: LEVOFLOXACIN 750 MG/D5W RTU 750 MG/150 ML RTUPB IV SCH (22:00)
[2019-07-11] MEDS ORDERED: CEFTRIAXONE 1 GM/D5W RTU 1 GM/50 ML RTUPB IV SCH (22:00)
--- NOTE | 2019-07-11 22:44 | XCELERA REPORT ---
[address] [address] Transthoracic Echocardiogram Report Name: MARISSA CORONA Age: 78 yrs Gender: Male : 1940 Patient Status: Inpatient Patient Location: [address] [place], [place] [id number] Study Date: 07/11/2019 07:13 PM Height: 72 in Weight: 243 lb BSA: 2.3 m2 Procedure: A two-dimensional transthoracic echocardiogram with color flow and Doppler was performed. Study Quality: Poor. Reason For Study: new onset afib History: new onset afib. Ordering Physician: KEVIN ROGEL Performed By: Tammie Murry Interpretation Summary The left ventricle is normal in size. There is normal left ventricular wall thickness. LV EF is 60% The left ventricular ejection fraction is within normal limits. The left ventricular wall motion is normal. There is no thrombus. Cannot assess Cannot assess ASD,VSD,or PFO. poor visualisation of Rv and RA.Hence cannot comment on their collapse There is no mitral valve stenosis. There is no vegetation seen on the mitral valve. Probably trace MR. There is no aortic valve stenosis No aortic regurgitation is present. Not well interogated.No Tricuspid stenosis.Probaly trace to mild TR.At least moderate Pulmonary hypertension.RVSP is at least 52 mm of Hg with RA mean of at least 20. The inferior vena cava appeared dilated and did not change with respiration (RAP > 20 mmHg) There is moderate pericardial effusion.RA and RV not seen well to comment on Tamponade.But Dilated IVC withot respiratory variations and the % of respiatory variations in the Tricuspid and Mitral Valve Inflows are suspicious for early tamponade.Corelate Clically.Make sure by clinical exam patient not in tamponade. Discussed with the night hospitalist.Doc). MMode/2D Measurements & Calculations RVDd: 3.0 cm LVIDd: 5.3 cm FS: 29.8 % Ao root diam: 3.0 cm IVSd: 1.1 cm LVIDs: 3.7 cm EDV(Teich): Ao root area: LVPWd: 1.1 cm 132.5 ml 6.9 cm2 ESV(Teich): 57.6 mlLA dimension: 3.7 cm EF(Teich): 56.5 % LVLd ap4: 7.6 cm SV(MOD-sp4): EDV(MOD-sp4): 54.0 ml 87.0 ml LVLs ap4: 6.1 cm ESV(MOD-sp4): 33.0 ml EF(MOD-sp4): 62.1 % Doppler Measurements & Calculations MV E max sola: MV P1/2t max sola: Ao V2 max: LV V1 max P.0 cm/sec 162.9 cm/sec 171.0 cm/sec 3.7 mmHg MV A max sola: MV P1/2t: 36.7 msec Ao max PG: LV V1 max: 79.0 cm/sec MVA(P1/2t): 6.0 cm2 11.7 mmHg 96.3 cm/sec MV E/A: 1.5 MV dec slope: 1300 cm/sec2 MV dec time: 0.17 sec TV V2 max: PA V2 max: TR max sola: MV P1/2t-pr_phl: 92.5 cm/sec 105.9 cm/sec 281.0 cm/sec 36.7 msec TV max P.6 mmHgPA max P.5 mmHg TR max P.6 mmHg Left Ventricle The left ventricle is normal in size. There is normal left ventricular wall thickness. LV EF is 60%. The left ventricular ejection fraction is within normal limits. LV diastolic function could not be adequately assessed due to atrial fibrilation. The left ventricular wall motion is normal. There is no thrombus. Cannot assess Cannot assess ASD,VSD,or PFO. Right Ventricle poor visualisation of Rv and RA.Hence cannot comment on their collapse. Atria Right atrium not well visualized secondary to technical limitations. The left atrial size is normal. Mitral Valve There is no evidence of mitral valve prolapse. There is no vegetation seen on the mitral valve. There is no mitral valve stenosis. Probably trace MR. Aortic Valve There is no aortic valvular vegetation. There is no aortic valve stenosis. No aortic regurgitation is present. Tricuspid Valve Not well interogated.No Tricuspid stenosis.Probaly trace to mild TR.At least moderate Pulmonary hypertension.RVSP is at least 52 mm of Hg with RA mean of at least 20. Pulmonic Valve The pulmonic valve is not well visualized. Great Vessels The aortic root is not well visualized. The inferior vena cava appeared dilated and did not change with respiration (RAP > 20 mmHg). Effusions There is moderate pericardial effusion.RA and RV not seen well to comment on Tamponade.But Dilated IVC withot respiratory variations and the % of respiatory variations in the Tricuspid and Mitral Valve Inflows are suspicious for early tamponade.Corelate Clically.Make sure by clinical exam patient not in tamponade. Discussed with the night hospitalist.Doc). : KEVIN ROGEL Lakshmi
[2019-07-11] MEDS ORDERED: CHLORPROMAZINE HCL INJ 25 MG/1 ML AMPULE ONE (23:19)
[2019-07-11] MEDS ORDERED: CHLORPROMAZINE HCL INJ 25 MG/1 ML AMPULE IM ONE (23:30)
[2019-07-12] MEDS: LEVALBUTEROL HCL NEB 1.25 MG/3 ML AMPUL NEB SCH ×3 (00:19→15:45)
[2019-07-12] MEDS: IPRATROPIUM BROMIDE 0.02% NEB 0.5 MG/2.5 ML AMPUL NEB SCH ×3 (00:19→15:45)
[2019-07-12] MEDS: INSULIN REG, HUMAN 100 UNIT/ML 3 ML VIAL (PYX) SUBCUT SCH ×4 (00:53→18:19)
[2019-07-12] MEDS: DIAZEPAM INJ 10 MG/2 ML DISP.SYRIN IV PRN ×9 (01:04→11:49)
[2019-07-12] MEDS: METOPROLOL TARTRATE 100 MG TABLET PO SCH ×2 (01:45→09:38)
[2019-07-12] MEDS: DILTIAZEM HCL 90 MG TABLET PO SCH ×4 (01:46→18:25)
[2019-07-12] MEDS ORDERED: CHLORPROMAZINE HCL INJ 25 MG/1 ML AMPULE ONE (03:35)
[2019-07-12] MEDS: CHLORPROMAZINE HCL INJ 25 MG/1 ML AMPULE IV SCH ×4 (04:00→15:02)
[2019-07-12] MEDS ORDERED: DIGOXIN INJ 0.5 MG/2 ML AMPULE IV ONE (05:00)
[2019-07-12] MEDS: METOPROLOL TARTRATE PF/INJ 5 MG/5 ML SDV IV SCH ×3 (05:31→16:01)
[2019-07-12] MEDS: PANTOPRAZOLE SODIUM 40 MG TABLET.DR PO SCH ×2 (06:24→18:20)
[2019-07-12 06:58] LABS: HEMATOCRIT 32.9 % (37.9-51.0); HEMOGLOBIN 11.3 g/dL (13.5-17.0); MEAN CORPUSCULAR HEMOGLOBIN 33.7 pg (27.0-33.4); MEAN CORPUSCULAR HGB CONC 34.5 g/dL (32.0-36.0); MEAN CORPUSCULAR VOLUME 98 fl (80-97); PLATELET COUNT 219 10^3/uL (150-450); RED BLOOD COUNT 3.36 10^6/uL (4.35-5.55); RED CELL DISTRIBUTION WIDTH 12.7 % (11.5-14.0); WHITE BLOOD COUNT 12.8 10^3/uL (4.0-10.5)
[2019-07-12 07:31] LABS: ANION GAP 9 (5-19); BLOOD UREA NITROGEN 16 mg/dL (7-20); CALCIUM 8.3 mg/dL (8.4-10.2); CARBON DIOXIDE 20 mmol/L (22-30); CHLORIDE 101 mmol/L (98-107); GLUCOSE 143 mg/dL (75-110); POTASSIUM 3.9 mmol/L (3.6-5.0)
[2019-07-12 07:55] LABS: DIGOXIN 3.64 ng/mL (0.8-2.0)
[2019-07-12 08:01] LABS: ARTERIAL BLOOD BASE EXCESS -1.5 mmol/L; ARTERIAL BLOOD H2CO3 1.08 mmol/L (1.05-1.35); ARTERIAL BLOOD HCO3 22.6 mmol/L (20-24); ARTERIAL BLOOD O2 SATURATION 94.7 % (94-98); ARTERIAL BLOOD PCO2 35.9 mmHg (35-45); ARTERIAL BLOOD PH 7.42 (7.35-7.45); ARTERIAL BLOOD PO2 71.1 mmHg (80-100); ARTERIAL BLOOD TOTAL CO2 23.7 mmol/L (23-27)
[2019-07-12] MEDS: ACETYLCYSTEINE 20% SOLN 800 MG/4 ML VIAL.NEB NEB SCH ×2 (08:03→20:25)
[2019-07-12 08:15] LABS: ARTERIAL BLOOD FIO2 4.5L
--- NOTE | 2019-07-12 09:23 | RADIOLOGY REPORT (SQ) ---
EXAM DESCRIPTION: CT CHEST WITHOUT COMPLETED DATE/TIME: 07/12/2019 9:08 am REASON FOR STUDY: Assess PNA and pericardial effusion COMPARISON: Chest radiograph, 07/10/2019, CT chest, 05/09/2015 TECHNIQUE: CT scan performed of the chest without intravenous contrast. Images reviewed with lung, soft tissue and bone windows. Reconstructed coronal and sagittal MPR images reviewed. All images st ored on PACS. All CT scanners at this facility use dose modulation, iterative reconstruction, and/or weight based d osing when appropriate to reduce radiation dose to as low as reasonably achievable (ALARA). [facility]: Dose Right [facility]: CareDose [facility]: Dose Right [facility]: Teradose 4D [facility]: Smart D[employer] Samurai RADIATION DOSE: CT Rad equipment meets quality standard of care and radiation dose reduction techniq ues were employed. CTDIvol: 18.1 mGy. DLP: 694 mGy-cm. mGy. LIMITATIONS: No technical limitations. FINDINGS: LUNGS AND PLEURA: No masses, infiltrates, or pneumothorax. Small to moderate bilateral pl eural effusions. Mild paraseptal emphysema. HILAR AND MEDIASTINAL STRUCTURES: No identified masses or abnormal nodes. No obvious aneurysm. HEART AND VASCULAR STRUCTURES: No aneurysm. There is a large pericardial effusion, maximum thickness 3.3 cm. Three-vessel coronary artery calcifications. UPPER ABDOMEN: No significant findings. Limited exam. THYROID AND OTHER SOFT TISSUES: No masses. No adenopathy. BONES: No significant finding. HARDWARE: None in the chest. OTHER: No other significant findings. IMPRESSION: 1. Small to moderate bilateral pleural effusions with associated atelectasis or consoli dation. 2. Large pericardial effusion, maximum thickness 3.3 cm. 3. Coronary artery disease. TECHNICAL DOCUMENTATION: JOB ID: [id number] Quality ID # [id number]: Final reports with documentation of one or more dose reduction techniques (e.g., Au tomated exposure control, adjustment of the mA and/or kV according to patient size, use of iterative reconstruction technique) 2010 [employer]- All Rights Reserved Reading location - IP/workstation name: [email or web address]
[2019-07-12] MEDS: APIXABAN 5 MG TABLET PO SCH ×2 (09:38→18:20)
[2019-07-12] MEDS: FOLIC ACID 1 MG TABLET PO SCH (09:38)
[2019-07-12] MEDS: DIGOXIN 0.25 MG TABLET PO SCH (09:38)
[2019-07-12] MEDS: THIAMINE HCL 100 MG TABLET PO SCH (09:39)
[2019-07-12] MEDS: PYRIDOXINE HCL 50 MG TABLET PO SCH (09:39)
[2019-07-12] MEDS: CYANOCOBALAMIN (VITAMIN B-12) 1,000 MCG TABLET PO SCH (09:39)
[2019-07-12] MEDS: RINGERS SOLUTION,LACTATED 1,000 ML IV PRN (11:33)
[2019-07-12] MEDS ORDERED: DIAZEPAM INJ 10 MG/2 ML DISP.SYRIN IV PRN (13:59)
[2019-07-12] MEDS ORDERED: FUROSEMIDE INJ/PF 20 MG/2 ML SDV IV ONE (15:23)
[2019-07-12] MEDS ORDERED: FUROSEMIDE INJ/PF 20 MG/2 ML SDV ONE (15:53)
--- NOTE | 2019-07-12 16:21 | PDOC PROGRESS REPORT ---
Subjective Progress Note for:: 07/12/19 Subjective:: This is a 78-year-old male who initially presented with generalized weakness. He was found to be in A. fib with RVR and was also noted to have a left lower lobe pneumonia. He was initially started on Cardizem drip. He was also started on IV levofloxacin. Yesterday, patient developed signs and symptoms of alcohol withdrawal and he was started on Valium qhourly prn. Overnight he was constantly requiring 10 mg of Valium qhourly due to increasing agitation and restlessness. Upon encounter, he is slightly lethargic likely from the Valium but he is oriented to person and place. He does go into irregular abdominal breathing once in a while but is currently maintaining his sats well. He denies chest pain or shortness of breath. His echo did show moderate pericardial effusion. Blood pressures are stable. He does not have muffled heart sounds. says he drinks more than a bottle of Whiskey/day. Reason For Visit: PNEUMONIA, AFIB WITH RVR Physical Exam Vital Signs: Temp Pulse Resp BP Pulse Ox 97.2 F 59 L 21 H 139/64 H 99 07/12/19 07:46 07/12/19 08:04 07/12/19 08:04 07/12/19 07:46 07/12/19 08:04 Intake & Output 07/11/19 07/12/19 07/13/19 06:59 06:59 06:59 Intake Total 2805 2788 240 Output Total 1050 Balance 1755 2788 240 Weight 243 lb 6.245 oz 246 lb 0.574 oz General appearance: PRESENT: no acute distress, well-developed, well-nourished Head exam: PRESENT: atraumatic, normocephalic Eye exam: PRESENT: conjunctiva pink, EOMI, PERRLA. ABSENT: scleral icterus Mouth exam: PRESENT: moist, tongue midline Neck exam: ABSENT: carotid bruit, JVD, lymphadenopathy, thyromegaly Respiratory exam: PRESENT: accessory muscle use, rhonchi. ABSENT: rales, wheezes Cardiovascular exam: PRESENT: irregular rhythm, tachycardia. ABSENT: diastolic murmur, rubs, systolic murmur GI/Abdominal exam: PRESENT: normal bowel sounds, soft. ABSENT: distended, guarding, mass, organolmegaly, rebound, tenderness Rectal exam: PRESENT: deferred Neurological exam: PRESENT: oriented to person, oriented to place, CN II-XII grossly intact. ABSENT: motor sensory deficit Results Laboratory Results: 07/12/19 06:08 07/12/19 06:08 07/12/19 07/12/19 07/12/19 06:08 06:08 07:35 WBC 12.8 H RBC 3.36 L Hgb 11.3 L Hct 32.9 L MCV 98 H MCH 33.7 H MCHC 34.5 RDW 12.7 Plt Count 219 Carbonic Acid 1.08 HCO3/H2CO3 Ratio 20:1 ABG pH 7.42 ABG pCO2 35.9 ABG pO2 71.1 L ABG HCO3 22.6 ABG O2 Saturation 94.7 ABG Base Excess -1.5 FiO2 4.5L Sodium 130.0 L Potassium 3.9 Chloride 101 Carbon Dioxide 20 L Anion Gap 9 BUN 16 Creatinine 0.85 Est GFR ( Amer) > 60 Glucose 143 H Calcium 8.3 L Magnesium 2.1 07/10/19 07/11/19 07/11/19 18:11 00:37 00:37 Creatine Kinase 108 CK-MB (CK-2) 1.20 0.92 Troponin I < 0.012 < 0.012 07/11/19 07/11/19 07/11/19 07:46 07:46 13:22 Creatine Kinase 98 92 CK-MB (CK-2) 1.11 Troponin I < 0.012 07/11/19 13:22 Creatine Kinase CK-MB (CK-2) 1.02 Troponin I < 0.012 Impressions: Chest X-Ray 07/10/19 17:56 IMPRESSION: Small areas of left basilar airspace disease-subsegmental atelectasis. No significant pleural effusion. Head CT 07/10/19 17:56 IMPRESSION: NO ACUTE INTRACRANIAL FINDINGS. EVIDENCE OF ACUTE STROKE: NO. Chest CT 07/12/19 07:55 IMPRESSION: 1. Small to moderate bilateral pleural effusions with associated atelectasis or consolidation. 2. Large pericardial effusion, maximum thickness 3.3 cm. 3. Coronary artery disease. Assessment and Plan - Diagnosis (1) Alcohol withdrawal delirium Is this a current diagnosis for this admission?: Yes Plan: Patient has been requiring Valium 10 mg IV q. hourly overnight. Possible ICU upgrade due to high requirement of benzodiazepine and episodic irregular, abdominal breathing. (2) Atrial fibrillation with RVR Is this a current diagnosis for this admission?: Yes Plan: Off Cardizem drip. On p.o. Cardizem. Continue Eliquis. Cardiology following. (3) Hyponatremia Is this a current diagnosis for this admission?: Yes Plan: Likely related to chronic alcohol intake. (4) Left lower lobe pneumonia Qualifiers: Pneumonia type: due to unspecified organism Qualified Code(s): J18.1 - Lobar pneumonia, unspecified organism Is this a current diagnosis for this admission?: Yes Plan: Continue levofloxacin. (5) Pericardial effusion Is this a current diagnosis for this admission?: Yes Plan: Discussed with cardiology. Echo shows moderate pericardial effusion. His blood pressures actually running on the higher side. Heart sounds are not muffled. Repeat EKG today does not show signs of tamponade. Clinically he is not having cardiac tamponade. Discontinue IV fluids. - Time Time Spent with patient: 25-34 minutes
[2019-07-12 16:57] LABS: ARTERIAL BLOOD BASE EXCESS -0.6 mmol/L; ARTERIAL BLOOD HCO3 25.9 mmol/L (20-24); ARTERIAL BLOOD O2 SATURATION 38.7 % (94-98); ARTERIAL BLOOD PCO2 49.7 mmHg (35-45); ARTERIAL BLOOD PH 7.33 (7.35-7.45); ARTERIAL BLOOD TOTAL CO2 27.4 mmol/L (23-27)
[2019-07-12 16:59] LABS: ARTERIAL BLOOD FIO2 5
[2019-07-12 17:00] LABS: ARTERIAL BLOOD PO2 24.1 mmHg (80-100)
--- NOTE | 2019-07-12 17:40 | CRITICAL CARE ADMISSION REPORT ---
HPI Date:: 07/12/19 Time:: 17:15 Reason for ICU Reason:: High HR in afib. Pericardial effusin. Alcohol WD requiring high doses of valium. Respiratory insufficiency. HPI: This patient is a 76 y/o man presenting with 2 weeks of weakness and falls. He drinks alcohol heavily 'for years'. He is in uncontrolled atrial fibrillation at 140 after being controlled for about 24 hours. He has a high BNP at 2400 and evidence of moderate effusion but no obvious pulsus or clinical signs of tamponade. History obtained from:: Brother, hositalist and nurse - Diagnosis/Plan (1) Alcohol withdrawal delirium Is this a current diagnosis for this admission?: Yes Plan: He will need benzodiazepines and will need his resiratory status watched closely. Keep on thiamine. Check Phos. Mag good. (2) Atrial fibrillation with RVR Is this a current diagnosis for this admission?: Yes Plan: After being in NSR he is back in afib RVR. He will be back on cardizem drip. Bolused with iv Digoxin (3) Generalized weakness Is this a current diagnosis for this admission?: Yes Plan: He will likely need PT when appropriate. (4) Left lower lobe pneumonia Qualifiers: Pneumonia type: due to unspecified organism Qualified Code(s): J18.1 - Lobar pneumonia, unspecified organism Is this a current diagnosis for this admission?: Yes Plan: There is a definite infiltrate in the RLL. It is being treated as a CAP. However, given his hx an aspiration is not out of the question. Keep on Levequin for now. (5) Pericardial effusion Is this a current diagnosis for this admission?: Yes Plan: No apparent tamponade but needs close observation for cardiac decompensation wi th low BP. Lasix given for high BNP. Fortunately LVEF is good at 60%. (6) Esophageal varices Qualifiers: Esophageal varices type: unspecified type Esophageal varices bleeding: without bleeding Qualified Code(s): I85.00 - Esophageal varices without bleeding Is this a current diagnosis for this admission?: Yes Plan: Undoubtably from drinking. No active bleeding. Keep on IV protonix for now. Past Medical History Cardiac Medical History: Denies: Atrial Fibrillation, Coronary Artery Disease, Myocardial Infarction, Hypertension Pulmonary Medical History: Denies: Asthma, Chronic Obstructive Pulmonary Disease (COPD), Respiratory Failure EENT Medical History: Denies: Cataracts, Ears - Hearing aids Neurological Medical History: Denies: Hemorrhagic CVA, Ischemic CVA, Seizures Endocrine Medical History: Denies: Diabetes Mellitus Type 1, Diabetes Mellitus Type 2, Hyperthyroidism, Hypothyroidism Renal/ Medical History: Denies: Chronic Kidney Disease, Nephrolithiasis Malignancy Medical History: Reports: None GI Medical History: Reports: Cirrhosis, Gastroesophageal Reflux Disease, Peptic Ulcer Disease, Other - History of upper GI bleed Denies: Crohn's Disease, Hepatitis, Ulcerative Colitis Musculoskeltal Medical History: Denies: Arthritis, Gout Skin Medical History: Denies: Eczema, Psoriasis Psychiatric Medical History: Reports: Alcohol Dependency Denies: Depression, Substance Abuse, Tobacco Dependency Traumatic Medical History: Reports: None Hematology: Denies: Anemia, Bleeding Tendencies Infectious Medical History: Reports: None Past Surgical History Past Surgical History: Reports: Other - Peptic ulcer surgery abdominal midline scar Social/Family History - Social History Lives with: Spouse/Significant other Smoking Status: Former Smoker Cigars Per Day: 1 Last Time Smoked: 1987 Frequency of Alcohol Use: Heavy - Patient evasive but admits to drinking heavily on a daily basis Hx Recreational Drug Use: No Drugs: None Hx Prescription Drug Abuse: No - Medication/Allergies Home Medications: Gabapentin [Neurontin 300 mg Capsule] 600 mg PO TID 07/11/19 Allergies/Adverse Reactions: No Known Allergies Allergy (Unverified 12/23/16 05:45) Physical Exam Vital Signs: Temp Pulse Resp BP Pulse Ox 98.0 F 112 H 24 H 154/75 H 93 07/12/19 15:07 07/12/19 15:45 07/12/19 15:45 07/12/19 15:07 07/12/19 15:45 Intake & Output 07/11/19 07/12/19 07/13/19 06:59 06:59 06:59 Intake Total 2805 2788 583 Output Total 1050 Balance 1755 2788 583 Weight 110.4 kg 111.6 kg Weight/Height Weight 111.6 kg Height 6 ft Laboratory/Radiographs Laboratory Results: 07/12/19 06:08 07/12/19 06:08 07/12/19 07/12/19 07/12/19 06:08 06:08 07:35 WBC 12.8 H RBC 3.36 L Hgb 11.3 L Hct 32.9 L MCV 98 H MCH 33.7 H MCHC 34.5 RDW 12.7 Plt Count 219 Carbonic Acid 1.08 HCO3/H2CO3 Ratio 20:1 ABG pH 7.42 ABG pCO2 35.9 ABG pO2 71.1 L ABG HCO3 22.6 ABG O2 Saturation 94.7 ABG Base Excess -1.5 FiO2 4.5L Sodium 130.0 L Potassium 3.9 Chloride 101 Carbon Dioxide 20 L Anion Gap 9 BUN 16 Creatinine 0.85 Est GFR ( Amer) > 60 Glucose 143 H Calcium 8.3 L Magnesium 2.1 07/12/19 16:46 WBC RBC Hgb Hct MCV MCH MCHC RDW Plt Count Carbonic Acid 1.50 H HCO3/H2CO3 Ratio 17:1 ABG pH 7.33 L ABG pCO2 49.7 H ABG pO2 24.1 L* ABG HCO3 25.9 H ABG O2 Saturation 38.7 L ABG Base Excess -0.6 FiO2 5 Sodium Potassium Chloride Carbon Dioxide Anion Gap BUN Creatinine Est GFR ( Amer) Glucose Calcium Magnesium 07/10/19 07/11/19 07/11/19 18:11 00:37 00:37 Creatine Kinase 108 CK-MB (CK-2) 1.20 0.92 Troponin I < 0.012 < 0.012 NT-Pro-B Natriuret Pep 07/11/19 07/11/19 07/11/19 07:46 07:46 13:22 Creatine Kinase 98 92 CK-MB (CK-2) 1.11 Troponin I < 0.012 NT-Pro-B Natriuret Pep 07/11/19 07/12/19 13:22 15:55 Creatine Kinase CK-MB (CK-2) 1.02 Troponin I < 0.012 NT-Pro-B Natriuret Pep 2760 H Impressions: Chest X-Ray 07/10/19 17:56 IMPRESSION: Small areas of left basilar airspace disease-subsegmental atelectasis. No significant pleural effusion. Head CT 07/10/19 17:56 IMPRESSION: NO ACUTE INTRACRANIAL FINDINGS. EVIDENCE OF ACUTE STROKE: NO. Chest CT 07/12/19 07:55 IMPRESSION: 1. Small to moderate bilateral pleural effusions with associated atelectasis or consolidation. 2. Large pericardial effusion, maximum thickness 3.3 cm. 3. Coronary artery disease. Critical Time -: The care of a critically ill patient is dynamic. This note represents a static moment in the admission process. orders and treatments may be given simulataneously and urgentl, and time is not medical field representative of the treatment process. This patient requires Critical Care secondary to life threating organ or limb dysfunction. Without the need for Critical Care services, the patient is at risk for increasid mortality and morbidity.
[2019-07-12 17:59] LABS: ARTERIAL BLOOD H2CO3 0.93 mmol/L (1.05-1.35); ARTERIAL BLOOD O2 SATURATION 96.7 % (94-98); ARTERIAL BLOOD PCO2 30.9 mmHg (35-45); ARTERIAL BLOOD PH 7.45 (7.35-7.45); ARTERIAL BLOOD PO2 82.6 mmHg (80-100)
[2019-07-12 18:04] LABS: ARTERIAL BLOOD FIO2 4L
[2019-07-12] MEDS ORDERED: DILTIAZEM HCL/D5W 125 MG/125 ML RTUINJ IV ONE (18:12)
[2019-07-12] MEDS: DILTIAZEM HCL/D5W 125 MG/125 ML RTUINJ IV PRN (18:20)
--- NOTE | 2019-07-12 18:51 | PDOC PROGRESS REPORT ---
Subjective Progress Note for:: 07/12/19 Subjective:: Patient was seen on morning rounds. He was noted to be somewhat stuporous, however his vitals were noted to be stable with adequate oxygen on current FiO2. Patient was noted to be in atrial fibrillation however with controlled heart rate. 2D echocardiogram was reviewed does show moderate pericardial effusion however echocardiogram was technically difficult. Reason For Visit: PNEUMONIA, AFIB WITH RVR Physical Exam Vital Signs: Temp Pulse Resp BP Pulse Ox 98.0 F 112 H 24 H 154/75 H 93 07/12/19 15:07 07/12/19 15:45 07/12/19 15:45 07/12/19 15:07 07/12/19 15:45 Intake & Output 07/11/19 07/12/19 07/13/19 06:59 06:59 06:59 Intake Total 2805 2788 583 Output Total 1050 Balance 1755 2788 583 Weight 110.4 kg 111.6 kg Exam: GENERAL: Patient noted to be stuporous. I was told that patient had gotten some sedatives. HEAD: Atraumatic, normocephalic. EYES: Pupils equal round and reactive to light, extraocular movements intact, sclera anicteric, conjunctiva are normal. ENT: TMs normal, nares patent, oropharynx clear without exudates. Moist mucous membranes. No oral ulcerations or bleeding gums noted NECK: supple without lymphadenopathy or JVD. Trachea is central. No cervical or axillary lymphadenopathy noted. Carotids are 2+ LUNGS: Lateral coarse crackles noted. No significant dullness noted. CHEST: Palpation of chest wall shows no significant chest wall tenderness. 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 ABDOMEN: Soft, no significant tenderness appreciated, normoactive bowel sounds. No guarding, no rebound. No rigidity noted . No masses appreciated. EXTREMITIES: Pedal pulses are 1-2+, no calf tenderness noted, 1 + pedal edema noted. No clubbing or cyanosis. NEUROLOGICAL: Patient noted to be stuporous and not able to participate in neurological exam because of patient's current mental status PSYCH: Patient cannot participate in a neurologic and psych exam because of the patient's current mental status SKIN: No significant ecchymosis, rash, ulcerations or signs of pruritus noted. MUSCULOSKELETAL EXAM: No significant joint swelling noted. Results Laboratory Results: 07/12/19 06:08 07/12/19 06:08 07/12/19 07/12/19 07/12/19 06:08 06:08 07:35 WBC 12.8 H RBC 3.36 L Hgb 11.3 L Hct 32.9 L MCV 98 H MCH 33.7 H MCHC 34.5 RDW 12.7 Plt Count 219 Carbonic Acid 1.08 HCO3/H2CO3 Ratio 20:1 ABG pH 7.42 ABG pCO2 35.9 ABG pO2 71.1 L ABG HCO3 22.6 ABG O2 Saturation 94.7 ABG Base Excess -1.5 FiO2 4.5L Sodium 130.0 L Potassium 3.9 Chloride 101 Carbon Dioxide 20 L Anion Gap 9 BUN 16 Creatinine 0.85 Est GFR ( Amer) > 60 Glucose 143 H Calcium 8.3 L Magnesium 2.1 07/12/19 07/12/19 16:46 17:50 WBC RBC Hgb Hct MCV MCH MCHC RDW Plt Count Carbonic Acid 1.50 H 0.93 L HCO3/H2CO3 Ratio 17:1 22:1 ABG pH 7.33 L 7.45 ABG pCO2 49.7 H 30.9 L ABG pO2 24.1 L* 82.6 ABG HCO3 25.9 H 21.0 ABG O2 Saturation 38.7 L 96.7 ABG Base Excess -0.6 -2.0 FiO2 5 4L Sodium Potassium Chloride Carbon Dioxide Anion Gap BUN Creatinine Est GFR ( Amer) Glucose Calcium Magnesium 07/10/19 07/11/19 07/11/19 18:11 00:37 00:37 Creatine Kinase 108 CK-MB (CK-2) 1.20 0.92 Troponin I < 0.012 < 0.012 NT-Pro-B Natriuret Pep 07/11/19 07/11/19 07/11/19 07:46 07:46 13:22 Creatine Kinase 98 92 CK-MB (CK-2) 1.11 Troponin I < 0.012 NT-Pro-B Natriuret Pep 07/11/19 07/12/19 13:22 15:55 Creatine Kinase CK-MB (CK-2) 1.02 Troponin I < 0.012 NT-Pro-B Natriuret Pep 2760 H EKG Comments: Shows atrial fibrillation with rapid ventricular response at [address] segment changes noted Impressions: Chest X-Ray 07/10/19 17:56 IMPRESSION: Small areas of left basilar airspace disease-subsegmental atelectasis. No significant pleural effusion. Head CT 07/10/19 17:56 IMPRESSION: NO ACUTE INTRACRANIAL FINDINGS. EVIDENCE OF ACUTE STROKE: NO. Chest CT 07/12/19 07:55 IMPRESSION: 1. Small to moderate bilateral pleural effusions with associated atelectasis or consolidation. 2. Large pericardial effusion, maximum thickness 3.3 cm. 3. Coronary artery disease. Assessment & Plan - Diagnosis (1) Acute respiratory failure with hypoxia Is this a current diagnosis for this admission?: Yes (2) Alcohol withdrawal delirium Is this a current diagnosis for this admission?: Yes (3) Atrial fibrillation with RVR Is this a current diagnosis for this admission?: Yes (4) Pericardial effusion Is this a current diagnosis for this admission?: Yes - Notes Notes: Echocardiogram 10 to show moderate pericardial effusion. No definitive echocardiographic signs of tamponade was noted but feel that patient will need frequent echocardiogram and very close hemodynamic monitoring. As regards anticoagulation, it may be worthwhile to hold off anticoagulation for the time being. Recommend DVT prophylaxis. Discussed with Dr. Grant. If patient deteriorates, consider tertiary care referral for pericardiocentesis or involve local language asst. - Time Time with patient: Greater than 35 minutes Medications reviewed and adjusted accordingly: Yes
[2019-07-12] MEDS ORDERED: LORAZEPAM INJ 2 MG/1 ML VIAL IV PRN (19:32)
[2019-07-12] MEDS: LORAZEPAM INJ 2 MG/1 ML VIAL IV PRN (20:00)
[2019-07-12] MEDS: IPRATROPIUM/ALBUTEROL 0.5-2.5 MG/3 ML AMPUL NEB PRN (20:25)
[2019-07-12] MEDS ORDERED: FUROSEMIDE INJ/PF 40 MG/4 ML SDV ONE (20:26)
[2019-07-12 21:01] LABS: ARTERIAL BLOOD BASE EXCESS -4.9 mmol/L; ARTERIAL BLOOD FIO2 4L; ARTERIAL BLOOD HCO3 22.8 mmol/L (20-24); ARTERIAL BLOOD O2 SATURATION 86.1 % (94-98); ARTERIAL BLOOD PH 7.25 (7.35-7.45); ARTERIAL BLOOD PO2 59.1 mmHg (80-100); ARTERIAL BLOOD TOTAL CO2 24.5 mmol/L (23-27)
--- NOTE | 2019-07-12 21:38 | RADIOLOGY REPORT (SQ) ---
EXAM DESCRIPTION: XR ABDOMEN 1 VIEW (KUB) COMPLETED DATE/TME: 07/12/2019 20:38 CLINICAL HISTORY: 78 years, Male, NG tube placement Findings: Enteric tube is in place with tip coiled in the distal esophagus.
[2019-07-13] MEDS: IPRATROPIUM BROMIDE 0.02% NEB 0.5 MG/2.5 ML AMPUL NEB SCH ×3 (00:23→16:23)
[2019-07-13] MEDS: LEVALBUTEROL HCL NEB 1.25 MG/3 ML AMPUL NEB SCH ×3 (00:23→16:23)
[2019-07-13] MEDS: INSULIN REG, HUMAN 100 UNIT/ML 3 ML VIAL (PYX) SUBCUT SCH ×4 (00:25→18:40)
[2019-07-13] MEDS: METOPROLOL TARTRATE 100 MG TABLET PO SCH ×2 (00:27→10:19)
[2019-07-13] MEDS: DILTIAZEM HCL/D5W 125 MG/125 ML RTUINJ IV PRN ×2 (01:33→12:10)
[2019-07-13] MEDS: DILTIAZEM HCL 90 MG TABLET PO SCH ×2 (01:34→06:49)
[2019-07-13 04:21] LABS: HEMATOCRIT 34.3 % (37.9-51.0); HEMOGLOBIN 11.7 g/dL (13.5-17.0); MEAN CORPUSCULAR HEMOGLOBIN 33.4 pg (27.0-33.4); MEAN CORPUSCULAR VOLUME 98 fl (80-97); PLATELET COUNT 260 10^3/uL (150-450); RED BLOOD COUNT 3.49 10^6/uL (4.35-5.55); RED CELL DISTRIBUTION WIDTH 12.9 % (11.5-14.0); WHITE BLOOD COUNT 15.5 10^3/uL (4.0-10.5)
[2019-07-13 04:45] LABS: ANION GAP 12 (5-19); BLOOD UREA NITROGEN 21 mg/dL (7-20); CALCIUM 8.4 mg/dL (8.4-10.2); CARBON DIOXIDE 20 mmol/L (22-30); CHLORIDE 100 mmol/L (98-107); DIGOXIN 1.03 ng/mL (0.8-2.0); GLUCOSE 185 mg/dL (75-110); POTASSIUM 4.7 mmol/L (3.6-5.0)
[2019-07-13] MEDS: PANTOPRAZOLE SODIUM 40 MG TABLET.DR PO SCH ×2 (06:50→18:41)
[2019-07-13] MEDS: ACETYLCYSTEINE 20% SOLN 800 MG/4 ML VIAL.NEB NEB SCH ×2 (08:34→19:58)
[2019-07-13] MEDS: LORAZEPAM INJ 2 MG/1 ML VIAL IV PRN ×3 (08:52→23:56)
[2019-07-13] MEDS: FOLIC ACID 1 MG TABLET PO SCH (10:18)
[2019-07-13] MEDS: THIAMINE HCL 100 MG TABLET PO SCH (10:19)
[2019-07-13] MEDS: CYANOCOBALAMIN (VITAMIN B-12) 1,000 MCG TABLET PO SCH (10:20)
[2019-07-13] MEDS: PYRIDOXINE HCL 50 MG TABLET PO SCH (10:20)
--- NOTE | 2019-07-13 11:28 | EKG REPORT ---
SEVERITY:- ABNORMAL ECG - SINUS TACHYCARDIA WITH FREQUENT APCs SUPRAVENTRICULAR BIGEMINY BORDERLINE T WAVE ABNORMALITIES : Confirmed by: Shantelle Cowart 13-Jul-2019 11:26:34
--- NOTE | 2019-07-13 12:11 | PDOC PROGRESS REPORT ---
Subjective Progress Note for:: 07/13/19 Subjective:: Pt is on bipap and somewhat obtunded Reason For Visit: PNEUMONIA, AFIB WITH RVR Physical Exam Vital Signs: Temp Pulse Resp BP Pulse Ox 98.2 F 76 15 147/57 H 99 07/13/19 08:00 07/13/19 10:00 07/13/19 10:00 07/13/19 10:00 07/13/19 10:00 Intake & Output 07/12/19 07/13/19 07/14/19 06:59 06:59 06:59 Intake Total 2788 691 Output Total 1650 50 Balance 2788 -959 -50 Weight 111.6 kg 109.4 kg General appearance: PRESENT: disheveled, obese Additional Comments: Minimally responsive Eye exam: PRESENT: EOMI, PERRLA Ear exam: PRESENT: normal external ear exam Mouth exam: PRESENT: dry mucosa Respiratory exam: PRESENT: accessory muscle use, crackles, decreased breath sounds Cardiovascular exam: PRESENT: irregular rhythm, tachycardia Vascular exam: PRESENT: normal capillary refill GI/Abdominal exam: PRESENT: soft Rectal exam: PRESENT: deferred Extremities exam: PRESENT: full ROM Musculoskeletal exam: PRESENT: full ROM, normal inspection Skin exam: PRESENT: normal color Results Laboratory Results: 07/13/19 03:39 07/13/19 03:39 07/12/19 07/12/19 07/12/19 16:46 17:50 20:47 WBC RBC Hgb Hct MCV MCH MCHC RDW Plt Count Carbonic Acid 1.50 H 0.93 L 1.60 H HCO3/H2CO3 Ratio 17:1 22:1 14:1 ABG pH 7.33 L 7.45 7.25 L ABG pCO2 49.7 H 30.9 L 53.0 H ABG pO2 24.1 L* 82.6 59.1 L ABG HCO3 25.9 H 21.0 22.8 ABG O2 Saturation 38.7 L 96.7 86.1 L ABG Base Excess -0.6 -2.0 -4.9 FiO2 5 4L 4L Sodium Potassium Chloride Carbon Dioxide Anion Gap BUN Creatinine Est GFR ( Amer) Glucose Calcium Magnesium 07/13/19 07/13/19 03:39 03:39 WBC 15.5 H RBC 3.49 L Hgb 11.7 L Hct 34.3 L MCV 98 H MCH 33.4 MCHC 34.0 RDW 12.9 Plt Count 260 Carbonic Acid HCO3/H2CO3 Ratio ABG pH ABG pCO2 ABG pO2 ABG HCO3 ABG O2 Saturation ABG Base Excess FiO2 Sodium 131.6 L Potassium 4.7 Chloride 100 Carbon Dioxide 20 L Anion Gap 12 BUN 21 H Creatinine 1.16 Est GFR ( Amer) > 60 Glucose 185 H Calcium 8.4 Magnesium 2.1 07/10/19 07/11/19 07/11/19 18:11 00:37 00:37 Creatine Kinase 108 CK-MB (CK-2) 1.20 0.92 Troponin I < 0.012 < 0.012 NT-Pro-B Natriuret Pep 07/11/19 07/11/19 07/11/19 07:46 07:46 13:22 Creatine Kinase 98 92 CK-MB (CK-2) 1.11 Troponin I < 0.012 NT-Pro-B Natriuret Pep 07/11/19 07/12/19 13:22 15:55 Creatine Kinase CK-MB (CK-2) 1.02 Troponin I < 0.012 NT-Pro-B Natriuret Pep 2760 H Impressions: Chest X-Ray 07/10/19 17:56 IMPRESSION: Small areas of left basilar airspace disease-subsegmental atelectasis. No significant pleural effusion. Head CT 07/10/19 17:56 IMPRESSION: NO ACUTE INTRACRANIAL FINDINGS. EVIDENCE OF ACUTE STROKE: NO. Chest CT 07/12/19 07:55 IMPRESSION: 1. Small to moderate bilateral pleural effusions with associated atelectasis or consolidation. 2. Large pericardial effusion, maximum thickness 3.3 cm. 3. Coronary artery disease. Assessment & Plan - Diagnosis (1) Alcohol withdrawal delirium Is this a current diagnosis for this admission?: Yes Plan: Becuase of the alcoholWD he has needed high doses of ativan. This has resulted in respiratory insufficiency. We will attempt to lighten the ativan. (2) Atrial fibrillation with RVR Is this a current diagnosis for this admission?: Yes Plan: Stiil in afib/flutter. Better rate control on cardizem. Give iv as he is not safe for PO and an NG was not able to be placed. (3) Generalized weakness Is this a current diagnosis for this admission?: Yes Plan: If he survives he will need rehab. (4) Left lower lobe pneumonia Qualifiers: Pneumonia type: due to unspecified organism Qualified Code(s): J18.1 - Lobar pneumonia, unspecified organism Is this a current diagnosis for this admission?: Yes Plan: On antibiotics but this looks more like aspiration. Checking an ABG for hypercarbia. (5) Pericardial effusion Is this a current diagnosis for this admission?: Yes Plan: No hymodynamic compromise. (6) Esophageal varices Qualifiers: Esophageal varices type: unspecified type Esophageal varices bleeding: without bleeding Qualified Code(s): I85.00 - Esophageal varices without bleeding Is this a current diagnosis for this admission?: Yes Plan: No bleeding with NG attemps.
[2019-07-13 13:09] LABS: ARTERIAL BLOOD BASE EXCESS -3.3 mmol/L; ARTERIAL BLOOD FIO2 28%; ARTERIAL BLOOD H2CO3 0.78 mmol/L (1.05-1.35); ARTERIAL BLOOD HCO3 18.8 mmol/L (20-24); ARTERIAL BLOOD O2 SATURATION 97.4 % (94-98); ARTERIAL BLOOD PCO2 25.9 mmHg (35-45); ARTERIAL BLOOD PH 7.48 (7.35-7.45); ARTERIAL BLOOD PO2 87.8 mmHg (80-100); ARTERIAL BLOOD TOTAL CO2 19.6 mmol/L (23-27)
--- NOTE | 2019-07-13 13:17 | Progress Note ---
Provider Note Provider Note: ABG looks good. Hypocarbic, pH 7.48 Bicarb 28 pO2 better as well. Keep benzodiazepines PRN.
--- NOTE | 2019-07-13 19:37 | XCELERA REPORT ---
[address] [address] Transthoracic Echocardiogram Report Name: MARISSA CORONA Age: 78 yrs Gender: Male : 1940 Patient Status: Inpatient Patient Location: ICU^[id number] Study Date: 07/13/2019 09:12 AM Height: 70 in Weight: 246 lb BSA: 2.3 m2 Reason For Study: rpt echo for nuris AM to reassess per eff per cardio Ordering Physician: NOLVIA MCLAIN Performed By: Delphine Lacey Interpretation Summary Patient had limited echocardiogram performed. It confirms normal LVEF. RV EF is normal. No RV collapse noted in diastole. IVC is not dilated but did not change much with respiration however patient is on positive pressure ventilation, which tends to decrease any respiratory variation. Patient does have some pericardial stranding being noted. Pericardial effusion is approximately 2 cm around and seems somewhat worse than yesterday. No definite echocardiographic evidence of tamponade. Recommend CT of the chest to look at any enlarging pericardial effusion. This is being recommended since the 2D echo. is technically difficult. : NOLVIA MCLAIN Shyamal
[2019-07-13] MEDS: IPRATROPIUM/ALBUTEROL 0.5-2.5 MG/3 ML AMPUL NEB PRN (19:57)
--- NOTE | 2019-07-13 19:58 | PDOC PROGRESS REPORT ---
Subjective Progress Note for:: 07/13/19 Subjective:: Patient was seen on morning rounds. He was noted to be somewhat stuporous, however his vitals were noted to be stable with adequate oxygen on current FiO2. Patient was noted to be in atrial fibrillation however with controlled heart rate. 2D echocardiogram was reviewed does show moderate pericardial effusion however echocardiogram was technically difficult. Patient seen today in the morning. Seems to have increased respiratory rate. Patient noted to be obtunded. Bedside 2D echo was being performed when I saw the patient. It shows somewhat worse pericardial effusion but no clear-cut evidence of tamponade. Patient's vital signs do not show clinical temp or not. Reason For Visit: PNEUMONIA, AFIB WITH RVR Physical Exam Vital Signs: Temp Pulse Resp BP Pulse Ox 97.9 F 104 H 16 134/59 H 99 07/13/19 16:00 07/13/19 18:00 07/13/19 18:00 07/13/19 18:00 07/13/19 18:00 Intake & Output 07/12/19 07/13/19 07/14/19 06:59 06:59 06:59 Intake Total 2788 691 152 Output Total 1650 505 Balance 3032 -547 -715 Weight 111.6 kg 109.4 kg Exam: GENERAL: well-nourished and in no acute distress. Patient is obtunded. HEAD: Atraumatic, normocephalic. EYES: Pupils equal round and reactive to light, extraocular movements intact, sclera anicteric, conjunctiva are normal. ENT: TMs normal, nares patent, oropharynx clear without exudates. Moist mucous membranes. No oral ulcerations or bleeding gums noted NECK: supple without lymphadenopathy or JVD. Trachea is central. No cervical or axillary lymphadenopathy noted. Carotids are 2+ LUNGS: Breath sounds bibasilar fine crackles at bases with some coarse wheezing. CHEST: Palpation of chest wall shows no significant chest wall tenderness. 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 ABDOMEN: Soft, no significant tenderness appreciated, normoactive bowel sounds. No guarding, no rebound. No rigidity noted . No masses appreciated. EXTREMITIES: Pedal pulses are 1-2+, no calf tenderness noted, 1+ pedal edema noted. No clubbing or cyanosis. NEUROLOGICAL: Patient is alert but is not able to participate in neurological exam because of patient's current mental status PSYCH: Patient cannot participate in a neurologic and psych exam because of the patient's current mental status SKIN: No significant ecchymosis, rash, ulcerations or signs of pruritus noted. MUSCULOSKELETAL EXAM: No significant joint swelling noted. Results Laboratory Results: 07/13/19 03:39 07/13/19 03:39 07/12/19 07/13/19 07/13/19 20:47 03:39 03:39 WBC 15.5 H RBC 3.49 L Hgb 11.7 L Hct 34.3 L MCV 98 H MCH 33.4 MCHC 34.0 RDW 12.9 Plt Count 260 Carbonic Acid 1.60 H HCO3/H2CO3 Ratio 14:1 ABG pH 7.25 L ABG pCO2 53.0 H ABG pO2 59.1 L ABG HCO3 22.8 ABG O2 Saturation 86.1 L ABG Base Excess -4.9 FiO2 4L Sodium 131.6 L Potassium 4.7 Chloride 100 Carbon Dioxide 20 L Anion Gap 12 BUN 21 H Creatinine 1.16 Est GFR ( Amer) > 60 Glucose 185 H Calcium 8.4 Magnesium 2.1 07/13/19 12:43 WBC RBC Hgb Hct MCV MCH MCHC RDW Plt Count Carbonic Acid 0.78 L HCO3/H2CO3 Ratio 24:1 ABG pH 7.48 H ABG pCO2 25.9 L ABG pO2 87.8 ABG HCO3 18.8 L ABG O2 Saturation 97.4 ABG Base Excess -3.3 FiO2 28% Sodium Potassium Chloride Carbon Dioxide Anion Gap BUN Creatinine Est GFR ( Amer) Glucose Calcium Magnesium 07/10/19 07/11/19 07/11/19 18:11 00:37 00:37 Creatine Kinase 108 CK-MB (CK-2) 1.20 0.92 Troponin I < 0.012 < 0.012 NT-Pro-B Natriuret Pep 07/11/19 07/11/19 07/11/19 07:46 07:46 13:22 Creatine Kinase 98 92 CK-MB (CK-2) 1.11 Troponin I < 0.012 NT-Pro-B Natriuret Pep 07/11/19 07/12/19 13:22 15:55 Creatine Kinase CK-MB (CK-2) 1.02 Troponin I < 0.012 NT-Pro-B Natriuret Pep 2760 H EKG Comments: Atrial flutter fibrillation heart rate reasonably well controlled. Impressions: Chest X-Ray 07/10/19 17:56 IMPRESSION: Small areas of left basilar airspace disease-subsegmental atelectasis. No significant pleural effusion. Head CT 07/10/19 17:56 IMPRESSION: NO ACUTE INTRACRANIAL FINDINGS. EVIDENCE OF ACUTE STROKE: NO. Chest CT 07/12/19 07:55 IMPRESSION: 1. Small to moderate bilateral pleural effusions with associated atelectasis or consolidation. 2. Large pericardial effusion, maximum thickness 3.3 cm. 3. Coronary artery disease. Assessment & Plan - Diagnosis (1) Acute respiratory failure with hypoxia Is this a current diagnosis for this admission?: Yes (2) Alcohol withdrawal delirium Is this a current diagnosis for this admission?: Yes (3) Atrial fibrillation with RVR Is this a current diagnosis for this admission?: Yes (4) Pericardial effusion Is this a current diagnosis for this admission?: Yes - Notes Notes: Pericardial effusion seems somewhat worse. Will repeat another 2D echo tomorrow. Have discussed with quarter seamer about doing a CT of the chest for further evaluation of pericardial effusion size since 2D echo has been technically difficult. Patient being very closely observed for any signs of tamponade. Will recommend tertiary care transfer for interventional cardiology evaluation if patient becomes hypotensive. May involve local leakage tester if available. - Time Time with patient: Greater than 35 minutes Medications reviewed and adjusted accordingly: Yes
[2019-07-14] MEDS: METOPROLOL TARTRATE 100 MG TABLET PO SCH ×2 (00:09→09:08)
[2019-07-14] MEDS: INSULIN REG, HUMAN 100 UNIT/ML 3 ML VIAL (PYX) SUBCUT SCH ×5 (00:09→23:27)
[2019-07-14] MEDS: IPRATROPIUM BROMIDE 0.02% NEB 0.5 MG/2.5 ML AMPUL NEB SCH ×3 (00:27→16:18)
[2019-07-14] MEDS: LEVALBUTEROL HCL NEB 1.25 MG/3 ML AMPUL NEB SCH ×3 (00:27→16:18)
[2019-07-14] MEDS: NORMAL SALINE 1000 ML 1,000 ML IV PRN ×2 (07:37→17:37)
[2019-07-14] MEDS: PANTOPRAZOLE SODIUM 40 MG TABLET.DR PO SCH (07:38)
[2019-07-14 07:56] LABS: ABSOLUTE BASOPHILS # (AUTO) 0.1 10^3/uL (0.0-0.2); ABSOLUTE EOSINOPHILS # (AUTO) 0.1 10^3/uL (0.0-0.6); ABSOLUTE LYMPHOCYTES (AUTO) 1.3 10^3/uL (0.5-4.7); ABSOLUTE MONOCYTES (AUTO) 1.5 10^3/uL (0.1-1.4); ABSOLUTE NEUT (AUTO) 10.2 10^3/uL (1.7-8.2); BASOPHILS % (AUTO) 0.7 % (0-2); EOSINOPHILS % (AUTO) 0.5 % (0-6); HEMATOCRIT 32.7 % (37.9-51.0); HEMOGLOBIN 11.1 g/dL (13.5-17.0); LYMPHOCYTES % (AUTO) 10.1 % (13-45); MEAN CORPUSCULAR HEMOGLOBIN 33.3 pg (27.0-33.4); MEAN CORPUSCULAR HGB CONC 33.9 g/dL (32.0-36.0); MEAN CORPUSCULAR VOLUME 98 fl (80-97); MONOCYTES % (AUTO) 11.5 % (3-13); PLATELET COUNT 267 10^3/uL (150-450); RED BLOOD COUNT 3.33 10^6/uL (4.35-5.55); SEGMENTED NEUTROPHILS % (AUTO) 77.2 % (42-78); TOTAL CELLS COUNTED % (AUTO) 100 %; WHITE BLOOD COUNT 13.2 10^3/uL (4.0-10.5)
[2019-07-14] MEDS: ACETYLCYSTEINE 20% SOLN 800 MG/4 ML VIAL.NEB NEB SCH ×2 (08:11→20:13)
[2019-07-14 08:15] LABS: ANION GAP 9 (5-19); BLOOD UREA NITROGEN 20 mg/dL (7-20); CALCIUM 8.2 mg/dL (8.4-10.2); CARBON DIOXIDE 23 mmol/L (22-30); CHLORIDE 102 mmol/L (98-107); GLUCOSE 150 mg/dL (75-110); POTASSIUM 4.4 mmol/L (3.6-5.0)
[2019-07-14] MEDS: HALOPERIDOL LACTATE INJ 5 MG/1 ML VIAL IV PRN (08:25)
[2019-07-14] MEDS: FOLIC ACID 1 MG TABLET PO SCH (09:08)
[2019-07-14] MEDS: CYANOCOBALAMIN (VITAMIN B-12) 1,000 MCG TABLET PO SCH (09:08)
[2019-07-14] MEDS: PYRIDOXINE HCL 50 MG TABLET PO SCH (09:08)
[2019-07-14] MEDS: THIAMINE HCL 100 MG TABLET PO SCH (09:08)
--- NOTE | 2019-07-14 09:14 | EKG REPORT ---
SEVERITY:- ABNORMAL ECG - SINUS TACHYCARDIA PROBABLE LEFT ATRIAL ABNORMALITY NONSPECIFIC T ABNORMALITIES, LATERAL LEADS : Confirmed by: Shantelle Cowart 14-Jul-2019 09:13:24
--- NOTE | 2019-07-14 09:28 | RADIOLOGY REPORT (SQ) ---
EXAM DESCRIPTION: CT CHEST WITHOUT COMPLETED DATE/TIME: 07/14/2019 9:08 am REASON FOR STUDY: Follow up on pericardial effusion and pleural effu COMPARISON: 07/12/2019. TECHNIQUE: CT scan performed of the chest without intravenous contrast. Images reviewed with lung, soft tissue and bone windows. Reconstructed coronal and sagittal MPR images reviewed. All images st ored on PACS. All CT scanners at this facility use dose modulation, iterative reconstruction, and/or weight based d osing when appropriate to reduce radiation dose to as low as reasonably achievable (ALARA). [facility]: Dose Right [facility]: CareDose [facility]: Dose Right [facility]: Teradose 4D [facility]: Smart Electric Cloud RADIATION DOSE: CT Rad equipment meets quality standard of care and radiation dose reduction techniq ues were employed. CTDIvol: 18.5 - 22.8 mGy. DLP: 1627 mGy-cm. mGy. LIMITATIONS: No technical limitations. FINDINGS: LUNGS AND PLEURA: Small bilateral pleural effusions persist but have slightly improved com pared to prior. Adjacent lower lobe subsegmental atelectasis. Motion artifact. Thick-walled parase ptal cysts in the upper lobes, as before. New focal ground-glass infiltrate in the left upper lobe, image 20. OTHER: Sizable pericardial effusion looks simple. Similar to perhaps minimally improved. Heavy melinda nary calcification. IMPRESSION: 1. Slightly improved pleural effusions bilaterally. Small effusions remain with associated volume lo ss in the lower lobes. 2. Stable to perhaps minimally improved pericardial fluid. 3. New focal ground-glass infiltrate in the left upper lobe. TECHNICAL DOCUMENTATION: JOB ID: [id number] Quality ID # [id number]: Final reports with documentation of one or more dose reduction techniques (e.g., Au tomated exposure control, adjustment of the mA and/or kV according to patient size, use of iterative reconstruction technique) 2010 [employer]- All Rights Reserved Reading location - IP/workstation name: [email or web address]
[2019-07-14] MEDS: METOPROLOL TARTRATE PF/INJ 5 MG/5 ML SDV IV PRN ×2 (10:03→18:40)
[2019-07-14] MEDS: ENOXAPARIN SODIUM INJ 100 MG/1 ML DISP.SYRIN SUBCUT SCH ×2 (12:32→22:15)
[2019-07-14] MEDS: DILTIAZEM HCL/D5W 125 MG/125 ML RTUINJ IV PRN (12:44)
[2019-07-14] MEDS: LORAZEPAM INJ 2 MG/1 ML VIAL IV PRN (14:27)
--- NOTE | 2019-07-14 15:19 | Progress Note ---
Provider Note Provider Note: Chest CT shows pericardial effussion unchanged. Pssible infiltrate in CARLO. Not a prime aspiration location and not clinically showing evidence of pneumonia. If febrile or otherwise showing sings of PNA I would cover withbroad spectrum abx such as Meropenem.
[2019-07-14] MEDS ORDERED: ACETAMINOPHEN 650 MG SUPP.RECT PR PRN (15:37)
--- NOTE | 2019-07-14 15:39 | PDOC PROGRESS REPORT ---
Subjective Progress Note for:: 07/14/19 Subjective:: Patient was seen on morning rounds. He was noted to be somewhat stuporous, however his vitals were noted to be stable with adequate oxygen on current FiO2. Patient was noted to be in atrial fibrillation however with controlled heart rate. 2D echocardiogram was reviewed does show moderate pericardial effusion however echocardiogram was technically difficult. Patient seen today in the morning. Seems to have increased respiratory rate. Patient noted to be obtunded. Bedside 2D echo was being performed when I saw the patient. It shows somewhat worse pericardial effusion but no clear-cut evidence of tamponade. Patient's vital signs do not show clinical temp or not. 07/14/2019: Patient seen on morning. Case discussed with crop grain or livestock farmer Dr. Hylton. CT scan results shows stable/minimally improved pericardial effusion. Noted that patient has been started on Lovenox therapy. Patient has new pneumonia. Patient still remains quite a bit obtunded but mental status seems slightly improved. Reason For Visit: PNEUMONIA, AFIB WITH RVR Physical Exam Vital Signs: Temp Pulse Resp BP Pulse Ox 98.2 F 96 23 H 150/97 H 99 07/14/19 12:00 07/14/19 14:00 07/14/19 14:00 07/14/19 14:00 07/14/19 14:00 Intake & Output 07/13/19 07/14/19 07/15/19 06:59 06:59 06:59 Intake Total 691 152 98 Output Total 1650 1505 200 Balance -959 -1353 -102 Weight 109.4 kg Exam: GENERAL: well-nourished and in no acute distress. Patient is alert but not oriented to place time or person. Patient remains intermittently quite a bit agitated. HEAD: Atraumatic, normocephalic. EYES: Pupils equal round and reactive to light, extraocular movements intact, sclera anicteric, conjunctiva are normal. ENT: TMs normal, nares patent, oropharynx clear without exudates. Moist mucous membranes. No oral ulcerations or bleeding gums noted NECK: supple without lymphadenopathy or JVD. Trachea is central. No cervical or axillary lymphadenopathy noted. Carotids are 2+ LUNGS: Breath sounds bibasilar fine crackles at bases. Mild dullness noted both bases.. CHEST: Palpation of chest wall shows no significant chest wall tenderness. 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 ABDOMEN: Soft, no significant tenderness appreciated, normoactive bowel sounds. No guarding, no rebound. No rigidity noted . No masses appreciated. EXTREMITIES: Pedal pulses are 1-2+, no calf tenderness noted, 1 + pedal edema noted. No clubbing or cyanosis. NEUROLOGICAL: Patient is alert but is not able to participate in neurological exam because of patient's current mental status PSYCH: Patient cannot participate in a neurologic and psych exam because of the patient's current mental status SKIN: No significant ecchymosis, rash, ulcerations or signs of pruritus noted. MUSCULOSKELETAL EXAM: No significant joint swelling noted. Results Laboratory Results: 07/14/19 07:42 07/14/19 07:42 07/14/19 07/14/19 07:42 07:42 WBC 13.2 H RBC 3.33 L Hgb 11.1 L Hct 32.7 L MCV 98 H MCH 33.3 MCHC 33.9 RDW 13.0 Plt Count 267 Seg Neutrophils % 77.2 Sodium 133.8 L Potassium 4.4 Chloride 102 Carbon Dioxide 23 Anion Gap 9 BUN 20 Creatinine 0.91 Est GFR ( Amer) > 60 Glucose 150 H Calcium 8.2 L 07/10/19 07/11/19 07/11/19 18:11 00:37 00:37 Creatine Kinase 108 CK-MB (CK-2) 1.20 0.92 Troponin I < 0.012 < 0.012 NT-Pro-B Natriuret Pep 07/11/19 07/11/19 07/11/19 07:46 07:46 13:22 Creatine Kinase 98 92 CK-MB (CK-2) 1.11 Troponin I < 0.012 NT-Pro-B Natriuret Pep 07/11/19 07/12/19 13:22 15:55 Creatine Kinase CK-MB (CK-2) 1.02 Troponin I < 0.012 NT-Pro-B Natriuret Pep 2760 H EKG Comments: Shows sinus tachycardia Impressions: Chest X-Ray 07/10/19 17:56 IMPRESSION: Small areas of left basilar airspace disease-subsegmental atelectasis. No significant pleural effusion. Head CT 07/10/19 17:56 IMPRESSION: NO ACUTE INTRACRANIAL FINDINGS. EVIDENCE OF ACUTE STROKE: NO. Chest CT 07/14/19 08:00 IMPRESSION: 1. Slightly improved pleural effusions bilaterally. Small effusions remain with associated volume loss in the lower lobes. 2. Stable to perhaps minimally improved pericardial fluid. 3. New focal ground-glass infiltrate in the left upper lobe. Assessment & Plan - Diagnosis (1) Acute respiratory failure with hypoxia Is this a current diagnosis for this admission?: Yes (2) Alcohol withdrawal delirium Is this a current diagnosis for this admission?: Yes (3) Atrial fibrillation with RVR Is this a current diagnosis for this admission?: Yes (4) Pericardial effusion Is this a current diagnosis for this admission?: Yes - Notes Notes: Overall improving picture but very gradual. Agree with management plans by hospitalist. Since patient has been started on Lovenox, will recheck with echocardiogram, limited look for pericardial effusion. Also patient now in sinus rhythm. Continue with beta-jc therapy. Continue other supportive care. Patient remains critically ill. Pericardial effusion is still a concern. No clinical signs of Tamponade. Discussed with Dr. Hylton - Time Time with patient: Greater than 35 minutes - More than 50% of the time spent coordinating care, discussing management plans with involved caregivers. Management plans discussed with involved personnels. Medical decision making was of moderate to high complexity, patient's has multiple comorbidities. Medications reviewed and adjusted accordingly: Yes
[2019-07-14] MEDS ORDERED: THIAMINE HCL 100 MG, FOLIC ACID 1 MG in NORMAL SALINE 250 ML IV ONE (16:30)
[2019-07-14] MEDS: IPRATROPIUM/ALBUTEROL 0.5-2.5 MG/3 ML AMPUL NEB PRN (20:13)
[2019-07-15] MEDS: LEVALBUTEROL HCL NEB 1.25 MG/3 ML AMPUL NEB SCH ×3 (00:22→16:06)
[2019-07-15] MEDS: IPRATROPIUM BROMIDE 0.02% NEB 0.5 MG/2.5 ML AMPUL NEB SCH ×3 (00:22→16:06)
[2019-07-15 04:04] LABS: MEAN CORPUSCULAR HEMOGLOBIN 33.2 pg (27.0-33.4); MEAN CORPUSCULAR HGB CONC 33.5 g/dL (32.0-36.0); MEAN CORPUSCULAR VOLUME 99 fl (80-97); PLATELET COUNT 252 10^3/uL (150-450); RED BLOOD COUNT 3.32 10^6/uL (4.35-5.55); RED CELL DISTRIBUTION WIDTH 12.9 % (11.5-14.0); WHITE BLOOD COUNT 13.4 10^3/uL (4.0-10.5)
[2019-07-15 04:21] LABS: ANION GAP 7 (5-19); BLOOD UREA NITROGEN 19 mg/dL (7-20); CALCIUM 8.1 mg/dL (8.4-10.2); CARBON DIOXIDE 24 mmol/L (22-30); CHLORIDE 107 mmol/L (98-107); GLUCOSE 120 mg/dL (75-110); POTASSIUM 4.1 mmol/L (3.6-5.0)
[2019-07-15] MEDS: DILTIAZEM HCL/D5W 125 MG/125 ML RTUINJ IV PRN (07:34)
[2019-07-15] MEDS: ACETYLCYSTEINE 20% SOLN 800 MG/4 ML VIAL.NEB NEB SCH ×2 (08:23→20:36)
--- NOTE | 2019-07-15 08:31 | PDOC PROGRESS REPORT ---
Subjective Progress Note for:: 07/15/19 Subjective:: Pt still stuporous to obtunded. No ativan overnight Reason For Visit: PNEUMONIA, AFIB WITH RVR Physical Exam Vital Signs: Temp Pulse Resp BP Pulse Ox 98.2 F 75 24 H 124/64 100 07/15/19 03:39 07/15/19 00:22 07/15/19 04:01 07/14/19 18:00 07/15/19 04:01 Intake & Output 07/14/19 07/15/19 07/16/19 06:59 06:59 06:59 Intake Total 152 1474.2 1 Output Total 1505 845 Balance -1353 629.2 1 Weight 109.9 kg General appearance: PRESENT: no acute distress, obese Eye exam: PRESENT: PERRLA Additional comments: Eyes conjugate. Ear exam: PRESENT: normal external ear exam Mouth exam: PRESENT: dry mucosa Additional comments: Due to not eating and bipap most likely Respiratory exam: PRESENT: crackles, rhonchi Cardiovascular exam: PRESENT: irregular rhythm Pulses: PRESENT: normal radial pulses Vascular exam: PRESENT: normal capillary refill GI/Abdominal exam: PRESENT: soft Rectal exam: PRESENT: deferred Gentrourinary exam: PRESENT: indwelling catheter Extremities exam: PRESENT: full ROM Neurological exam: PRESENT: altered Psychiatric exam: PRESENT: agitated Skin exam: PRESENT: normal color Results Laboratory Results: 07/15/19 03:35 07/15/19 03:35 07/14/19 07/14/19 07/15/19 07:42 07:42 03:35 WBC 13.2 H 13.4 H RBC 3.33 L 3.32 L Hgb 11.1 L 11.0 L Hct 32.7 L 33.0 L MCV 98 H 99 H MCH 33.3 33.2 MCHC 33.9 33.5 RDW 13.0 12.9 Plt Count 267 252 Seg Neutrophils % 77.2 Sodium 133.8 L Potassium 4.4 Chloride 102 Carbon Dioxide 23 Anion Gap 9 BUN 20 Creatinine 0.91 Est GFR ( Amer) > 60 Glucose 150 H Calcium 8.2 L 07/15/19 03:35 WBC RBC Hgb Hct MCV MCH MCHC RDW Plt Count Seg Neutrophils % Sodium 138.4 Potassium 4.1 Chloride 107 Carbon Dioxide 24 Anion Gap 7 BUN 19 Creatinine 0.91 Est GFR ( Amer) > 60 Glucose 120 H Calcium 8.1 L 07/10/19 07/11/19 07/11/19 18:11 00:37 00:37 Creatine Kinase 108 CK-MB (CK-2) 1.20 0.92 Troponin I < 0.012 < 0.012 NT-Pro-B Natriuret Pep 07/11/19 07/11/19 07/11/19 07:46 07:46 13:22 Creatine Kinase 98 92 CK-MB (CK-2) 1.11 Troponin I < 0.012 NT-Pro-B Natriuret Pep 07/11/19 07/12/19 13:22 15:55 Creatine Kinase CK-MB (CK-2) 1.02 Troponin I < 0.012 NT-Pro-B Natriuret Pep 2760 H Impressions: Chest X-Ray 07/10/19 17:56 IMPRESSION: Small areas of left basilar airspace disease-subsegmental atelectasis. No significant pleural effusion. Head CT 07/10/19 17:56 IMPRESSION: NO ACUTE INTRACRANIAL FINDINGS. EVIDENCE OF ACUTE STROKE: NO. Chest CT 07/14/19 08:00 IMPRESSION: 1. Slightly improved pleural effusions bilaterally. Small effusions remain with associated volume loss in the lower lobes. 2. Stable to perhaps minimally improved pericardial fluid. 3. New focal ground-glass infiltrate in the left upper lobe. Assessment & Plan - Diagnosis (1) Alcohol withdrawal delirium Is this a current diagnosis for this admission?: Yes Plan: Still in alcohol WD. Continue ativan but try to minimize. Meds IV until he can take PO. PPN for nutrition. Consider CT of Brain if not awakning soon. No lateralizing signs. (2) Atrial fibrillation with RVR Is this a current diagnosis for this admission?: Yes Plan: Under better control. Cardizen still IV until he can take PO. Cardizem has worked best. Pericardial effusion not effectic hemodynamics at this point. On theurapeutic lovenox (3) Generalized weakness Is this a current diagnosis for this admission?: Yes Plan: Immobile and in bed for several days. PT when appropriate. (4) Left lower lobe pneumonia Qualifiers: Pneumonia type: due to unspecified organism Qualified Code(s): J18.1 - Lobar pneumonia, unspecified organism Is this a current diagnosis for this admission?: Yes Plan: Not active, possible new infiltrate in CARLO. No clinical evidence of PNA. Try him off bipap. (5) Pericardial effusion Is this a current diagnosis for this admission?: Yes Plan: No hemodynamic compromise. May be slightly larger by echo. No pericardiocentesis. (6) Esophageal varices Qualifiers: Esophageal varices type: unspecified type Esophageal varices bleeding: without bleeding Qualified Code(s): I85.00 - Esophageal varices without bleeding Is this a current diagnosis for this admission?: Yes Plan: Inactive. - Time Time Spent with patient: 35 or more minutes Total Critical Time (Minutes): 35 Medications reviewed and adjusted accordingly: Yes - Inpatient Certification Medical Necessity: Failure to Improve With Outpatient Therapy, Significant Comorbidiites Make Outpatient Treatment Too Risky, Need Close Monitoring Due to Risk of Patient Decompensation, Need For IV Fluids, Need For Continuous Telemetry Monitoring, Need for Neurological Checks, Risk of Complication if Not Cared For in Hospital
[2019-07-15] MEDS: INSULIN REG, HUMAN 100 UNIT/ML 3 ML VIAL (PYX) SUBCUT SCH ×3 (08:34→18:09)
[2019-07-15] MEDS ORDERED: PHARMACY COMMUNICATION ORDER MC NR (10:45)
--- NOTE | 2019-07-15 10:46 | Progress Note ---
Provider Note Provider Note: Patient's family in room. 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 Brothers and uncles as well as sons. Father killed in WWII. Resistant historically to AA, other methods to stop drinking. Hides bottles. With family in room he is more awake but agitated. Opening eyes, trying to speak. Moving all 4 extremities. Effectively rules out stroke. Check ammonia, first value normal.
[2019-07-15] MEDS: ENOXAPARIN SODIUM INJ 100 MG/1 ML DISP.SYRIN SUBCUT SCH ×2 (11:13→22:24)
[2019-07-15] MEDS: LORAZEPAM INJ 2 MG/1 ML VIAL IV PRN (11:14)
--- NOTE | 2019-07-15 12:24 | PDOC PROGRESS REPORT ---
Subjective Progress Note for:: 07/15/19 Subjective:: Patient was seen on morning rounds. He was noted to be somewhat stuporous, however his vitals were noted to be stable with adequate oxygen on current FiO2. Patient was noted to be in atrial fibrillation however with controlled heart rate. 2D echocardiogram was reviewed does show moderate pericardial effusion however echocardiogram was technically difficult. Patient seen today in the morning. Seems to have increased respiratory rate. Patient noted to be obtunded. Bedside 2D echo was being performed when I saw the patient. It shows somewhat worse pericardial effusion but no clear-cut evidence of tamponade. Patient's vital signs do not show clinical temp or not. 07/14/2019: Patient seen on morning. Case discussed with hunter skin diver Dr. Hylton. CT scan results shows stable/minimally improved pericardial effusion. Noted that patient has been started on Lovenox therapy. Patient has new pneumonia. Patient still remains quite a bit obtunded but mental status seems slightly improved. 07/15/2019: Patient again seen at lunchtime. No significant change in his general condition. His vitals remained stable. Reason For Visit: PNEUMONIA, AFIB WITH RVR Physical Exam Vital Signs: Temp Pulse Resp BP Pulse Ox 97.5 F 69 16 103/65 100 07/15/19 12:00 07/15/19 12:00 07/15/19 12:00 07/15/19 12:00 07/15/19 12:00 Intake & Output 07/14/19 07/15/19 07/16/19 06:59 06:59 06:59 Intake Total 152 1474.2 1 Output Total 1505 845 160 Balance -1353 629.2 -159 Weight 109.9 kg Exam: GENERAL: well-nourished and in no acute distress. Patient is stuporous but intermittently agitated but not oriented to place time or person. HEAD: Atraumatic, normocephalic. EYES: Pupils equal round and reactive to light, extraocular movements intact, sclera anicteric, conjunctiva are normal. ENT: TMs normal, nares patent, oropharynx clear without exudates. Moist mucous membranes. No oral ulcerations or bleeding gums noted NECK: supple without lymphadenopathy or JVD. Trachea is central. No cervical or axillary lymphadenopathy noted. Carotids are 2+ LUNGS: Breath sounds bibasilar fine crackles at bases. Bibasilar dullness noted. CHEST: Palpation of chest wall shows no significant chest wall tenderness. 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 ABDOMEN: Soft, no significant tenderness appreciated, normoactive bowel sounds. No guarding, no rebound. No rigidity noted . No masses appreciated. EXTREMITIES: Pedal pulses are 1-2+, no calf tenderness noted, Trace + pedal edema noted. No clubbing or cyanosis. NEUROLOGICAL: Patient is alert but is not able to participate in neurological exam because of patient's current mental status PSYCH: Patient cannot participate in a neurologic and psych exam because of the patient's current mental status SKIN: No significant ecchymosis, rash, ulcerations or signs of pruritus noted. MUSCULOSKELETAL EXAM: No significant joint swelling noted. Results Laboratory Results: 07/15/19 03:35 07/15/19 03:35 07/15/19 07/15/19 07/15/19 03:35 03:35 10:47 WBC 13.4 H RBC 3.32 L Hgb 11.0 L Hct 33.0 L MCV 99 H MCH 33.2 MCHC 33.5 RDW 12.9 Plt Count 252 Sodium 138.4 Potassium 4.1 Chloride 107 Carbon Dioxide 24 Anion Gap 7 BUN 19 Creatinine 0.91 Est GFR ( Amer) > 60 Glucose 120 H Calcium 8.1 L Ammonia < 8.7 L 07/10/19 07/11/19 07/11/19 18:11 00:37 00:37 Creatine Kinase 108 CK-MB (CK-2) 1.20 0.92 Troponin I < 0.012 < 0.012 NT-Pro-B Natriuret Pep 07/11/19 07/11/19 07/11/19 07:46 07:46 13:22 Creatine Kinase 98 92 CK-MB (CK-2) 1.11 Troponin I < 0.012 NT-Pro-B Natriuret Pep 07/11/19 07/12/19 13:22 15:55 Creatine Kinase CK-MB (CK-2) 1.02 Troponin I < 0.012 NT-Pro-B Natriuret Pep 2760 H EKG Comments: Today shows atrial fibrillation. Impressions: Chest X-Ray 07/10/19 17:56 IMPRESSION: Small areas of left basilar airspace disease-subsegmental atelectasis. No significant pleural effusion. Head CT 07/10/19 17:56 IMPRESSION: NO ACUTE INTRACRANIAL FINDINGS. EVIDENCE OF ACUTE STROKE: NO. Chest CT 07/14/19 08:00 IMPRESSION: 1. Slightly improved pleural effusions bilaterally. Small effusions remain with associated volume loss in the lower lobes. 2. Stable to perhaps minimally improved pericardial fluid. 3. New focal ground-glass infiltrate in the left upper lobe. Assessment & Plan - Diagnosis (1) Acute respiratory failure with hypoxia Is this a current diagnosis for this admission?: Yes (2) Alcohol withdrawal delirium Is this a current diagnosis for this admission?: Yes (3) Atrial fibrillation with RVR Is this a current diagnosis for this admission?: Yes (4) Pericardial effusion Is this a current diagnosis for this admission?: Yes - Notes Notes: There is no change in patient condition. Clinically pericardial effusion seems stable without any clinical evidence of Tamponade. As regards atrial fibrillation, rate is reasonably well controlled. Currently on Cardizem drip. Patient on anticoagulation with Lovenox. May consider switch to Eliquis. I will be out of town and will be available for phone consultation on as-needed basis. Discussed with Dr. Hylton. - Time Time with patient: Greater than 35 minutes Medications reviewed and adjusted accordingly: Yes
--- NOTE | 2019-07-15 13:12 | RADIOLOGY REPORT (SQ) ---
EXAM DESCRIPTION: KUB/ABDOMEN (SINGLE VIEW) COMPLETED DATE/TIME: 07/15/2019 12:51 pm REASON FOR STUDY: Check Placement of NG Tube COMPARISON: CT abdomen pelvis 05/09/2015 NUMBER OF VIEWS: One view. TECHNIQUE: Supine radiographic image of the abdomen acquired. LIMITATIONS: None. FINDINGS: KUB for nasogastric tube placement. NG tube is present with the tip and side port in the stomach. Stomach is decompressed. Colon and small bowel are decompressed. Marked cardiomegaly. Lung bases are clear. Anterior abdominal wall radiopaque sutures. IMPRESSION: Nasogastric tube tip and side port in the stomach TECHNICAL DOCUMENTATION: JOB ID: [id number] [employer] (Closed)- All Rights Reserved Reading location - IP/workstation name: [email or web address]
[2019-07-15] MEDS: NORMAL SALINE 1000 ML 1,000 ML IV PRN (13:35)
[2019-07-15 14:56] LABS: ABSOLUTE BASOPHILS # (AUTO) 0.1 10^3/uL (0.0-0.2); ABSOLUTE EOSINOPHILS # (AUTO) 0.1 10^3/uL (0.0-0.6); ABSOLUTE LYMPHOCYTES (AUTO) 1.4 10^3/uL (0.5-4.7); ABSOLUTE MONOCYTES (AUTO) 1.6 10^3/uL (0.1-1.4); ABSOLUTE NEUT (AUTO) 10.6 10^3/uL (1.7-8.2); BASOPHILS % (AUTO) 0.7 % (0-2); EOSINOPHILS % (AUTO) 0.5 % (0-6); HEMATOCRIT 34.2 % (37.9-51.0); HEMOGLOBIN 11.3 g/dL (13.5-17.0); LYMPHOCYTES % (AUTO) 10.4 % (13-45); MEAN CORPUSCULAR HGB CONC 33.1 g/dL (32.0-36.0); MEAN CORPUSCULAR VOLUME 100 fl (80-97); MONOCYTES % (AUTO) 11.5 % (3-13); PLATELET COUNT 268 10^3/uL (150-450); RED BLOOD COUNT 3.42 10^6/uL (4.35-5.55); SEGMENTED NEUTROPHILS % (AUTO) 76.9 % (42-78); TOTAL CELLS COUNTED % (AUTO) 100 %; WHITE BLOOD COUNT 13.8 10^3/uL (4.0-10.5)
[2019-07-15 18:37] LABS: APPEARANCE,URINE CLOUDY; BILIRUBIN,URINE NEGATIVE (NEGATIVE); COLOR,URINE AMBER; GLUCOSE, URINE NEGATIVE (NEGATIVE); KETONES,URINE TRACE mg/dL (NEGATIVE); LEUKOCYTE ESTERASE,URINE NEGATIVE (NEGATIVE); NITRITE,URINE NEGATIVE (NEGATIVE); PROTEIN,URINE 100 mg/dL (NEGATIVE); URINE SPECIFIC GRAVITY 1.024
[2019-07-15] MEDS: METOPROLOL TARTRATE PF/INJ 5 MG/5 ML SDV IV PRN (19:04)
[2019-07-15] MEDS: IPRATROPIUM/ALBUTEROL 0.5-2.5 MG/3 ML AMPUL NEB PRN (20:36)
[2019-07-15] MEDS: HALOPERIDOL LACTATE INJ 5 MG/1 ML VIAL IV PRN (22:23)
[2019-07-16] MEDS: LORAZEPAM INJ 2 MG/1 ML VIAL IV PRN (00:01)
[2019-07-16] MEDS: NORMAL SALINE 1000 ML 1,000 ML IV PRN ×3 (00:01→19:00)
[2019-07-16] MEDS: DILTIAZEM HCL/D5W 125 MG/125 ML RTUINJ IV PRN ×3 (00:01→16:31)
[2019-07-16] MEDS: IPRATROPIUM BROMIDE 0.02% NEB 0.5 MG/2.5 ML AMPUL NEB SCH ×3 (00:11→16:30)
[2019-07-16] MEDS: LEVALBUTEROL HCL NEB 1.25 MG/3 ML AMPUL NEB SCH ×3 (00:11→16:30)
[2019-07-16] MEDS: INSULIN REG, HUMAN 100 UNIT/ML 3 ML VIAL (PYX) SUBCUT SCH ×4 (00:51→18:11)
[2019-07-16] MEDS: METOPROLOL TARTRATE PF/INJ 5 MG/5 ML SDV IV PRN ×2 (05:13→08:57)
--- NOTE | 2019-07-16 07:55 | PDOC PROGRESS REPORT ---
Subjective Progress Note for:: 07/16/19 Subjective:: Occsasionally calls out incoherently. More awake in that sense but still not aware. Reason For Visit: PNEUMONIA, AFIB WITH RVR Physical Exam Vital Signs: Temp Pulse Resp BP Pulse Ox 99.8 F 112 H 18 153/71 H 97 07/16/19 03:37 07/16/19 00:11 07/16/19 00:11 07/15/19 18:00 07/16/19 00:11 Intake & Output 07/15/19 07/16/19 07/17/19 06:59 06:59 06:59 Intake Total 2474.2 1885 Output Total 845 640 Balance 1629.2 1245 Weight 109.9 kg 111.9 kg General appearance: PRESENT: no acute distress, mild distress, obese Head exam: PRESENT: atraumatic Eye exam: PRESENT: PERRLA Ear exam: PRESENT: normal external ear exam Mouth exam: PRESENT: dry mucosa Additional comments: NG for feeding and meds pending Respiratory exam: PRESENT: accessory muscle use - Occasional, decreased breath sounds, rhonchi Cardiovascular exam: PRESENT: irregular rhythm Additional comments: Atrial fibrillation at controlled rate. Pulses: PRESENT: normal radial pulses Vascular exam: PRESENT: normal capillary refill GI/Abdominal exam: PRESENT: soft Rectal exam: PRESENT: deferred Extremities exam: PRESENT: full ROM Musculoskeletal exam: PRESENT: full ROM Neurological exam: PRESENT: altered Psychiatric exam: PRESENT: agitated Skin exam: PRESENT: normal color Results Laboratory Results: 07/15/19 14:45 07/15/19 03:35 07/15/19 07/15/19 07/15/19 10:47 14:45 17:53 WBC 13.8 H RBC 3.42 L Hgb 11.3 L Hct 34.2 L MCV 100 H MCH 33.0 MCHC 33.1 RDW 13.0 Plt Count 268 Seg Neutrophils % 76.9 Ammonia < 8.7 L Urine Color GABRIELA Urine Appearance CLOUDY Urine pH 6.0 Ur Specific [place] 1.024 Urine Protein 100 H Urine Glucose (UA) NEGATIVE Urine Ketones TRACE H Urine Blood LARGE H Urine Nitrite NEGATIVE Ur Leukocyte Esterase NEGATIVE Urine WBC (Auto) 47 Urine RBC (Auto) >182 07/10/19 20:19 Blood Blood Culture - Final NO GROWTH IN 5 DAYS 07/10/19 20:17 Blood Blood Culture - Final NO GROWTH IN 5 DAYS 07/10/19 07/11/19 07/11/19 18:11 00:37 00:37 Creatine Kinase 108 CK-MB (CK-2) 1.20 0.92 Troponin I < 0.012 < 0.012 NT-Pro-B Natriuret Pep 07/11/19 07/11/19 07/11/19 07:46 07:46 13:22 Creatine Kinase 98 92 CK-MB (CK-2) 1.11 Troponin I < 0.012 NT-Pro-B Natriuret Pep 07/11/19 07/12/19 13:22 15:55 Creatine Kinase CK-MB (CK-2) 1.02 Troponin I < 0.012 NT-Pro-B Natriuret Pep 2760 H Impressions: Chest X-Ray 07/10/19 17:56 IMPRESSION: Small areas of left basilar airspace disease-subsegmental atelectasis. No significant pleural effusion. Head CT 07/10/19 17:56 IMPRESSION: NO ACUTE INTRACRANIAL FINDINGS. EVIDENCE OF ACUTE STROKE: NO. Chest CT 07/14/19 08:00 IMPRESSION: 1. Slightly improved pleural effusions bilaterally. Small effusions remain with associated volume loss in the lower lobes. 2. Stable to perhaps minimally improved pericardial fluid. 3. New focal ground-glass infiltrate in the left upper lobe. KUB X-Ray 07/15/19 10:34 IMPRESSION: Nasogastric tube tip and side port in the stomach Assessment & Plan - Diagnosis (1) Alcohol withdrawal delirium Is this a current diagnosis for this admission?: Yes Plan: Main diagnosis and index diagnosis for ICU level of care. Imporved but still a fall risk and aspiration risk. Not ready for transfer yet. (2) Atrial fibrillation with RVR Is this a current diagnosis for this admission?: Yes Plan: Under better control. Now that NG is in will change to PO cardizem and try to discontinue IV. Metoprolol ordered via NG as well. (3) Generalized weakness Is this a current diagnosis for this admission?: Yes Plan: Strong when agitated but quite deconditioned (4) Left lower lobe pneumonia Qualifiers: Pneumonia type: due to unspecified organism Qualified Code(s): J18.1 - Lobar pneumonia, unspecified organism Is this a current diagnosis for this admission?: Yes Plan: Resolved. (5) Pericardial effusion Is this a current diagnosis for this admission?: Yes Plan: No hemodynamic symptoms meriting Pericardiocentesis (6) Esophageal varices Qualifiers: Esophageal varices type: unspecified type Esophageal varices bleeding: without bleeding Qualified Code(s): I85.00 - Esophageal varices without bleeding Is this a current diagnosis for this admission?: Yes Plan: Stable (7) Left upper lobe pulmonary infiltrate Is this a current diagnosis for this admission?: Yes Plan: Pt has ground glass appearing infiltrate from 07/16. For the first time today has a slight fevef. Given his debilitated status will conservatively treat for a HCAP with Meropenem. - Time Time Spent with patient: 35 or more minutes Total Critical Time (Minutes): 35 Medications reviewed and adjusted accordingly: Yes Anticipated discharge: SNF Within: Other - Open ended dates
[2019-07-16] MEDS: ACETYLCYSTEINE 20% SOLN 800 MG/4 ML VIAL.NEB NEB SCH ×2 (08:05→20:39)
[2019-07-16] MEDS ORDERED: METOPROLOL SUCCINATE 50 MG TAB.SR.24H PO SCH (08:30)
--- NOTE | 2019-07-16 09:06 | EKG REPORT ---
SEVERITY:- ABNORMAL ECG - A-FLUTTER W/ PREDOM 4:1 AV BLOCK, A-RATE 294 : Confirmed by: Shantelle Cowart 16-Jul-2019 09:04:52
--- NOTE | 2019-07-16 09:06 | EKG REPORT ---
SEVERITY:- ABNORMAL ECG - ATRIAL FIBRILLATION, V-RATE 75-115 NONSPECIFIC T ABNORMALITIES, LATERAL LEADS : Confirmed by: Shantelle Cowart 16-Jul-2019 09:04:44
[2019-07-16] MEDS: MEROPENEM 1 GM in NORMAL SALINE 50 ML IV SCH ×2 (09:57→21:27)
[2019-07-16] MEDS: FOLIC ACID 1 MG TABLET NG SCH (09:58)
[2019-07-16] MEDS: ENOXAPARIN SODIUM INJ 100 MG/1 ML DISP.SYRIN SUBCUT SCH ×2 (09:59→21:27)
[2019-07-16] MEDS ORDERED: THIAMINE HCL 100 MG TABLET NG SCH (10:00)
--- NOTE | 2019-07-16 11:16 | RADIOLOGY REPORT (SQ) ---
EXAM DESCRIPTION: CHEST SINGLE VIEW COMPLETED DATE/TIME: 07/16/2019 11:05 am REASON FOR STUDY: New wheezing and incresed resp effort. LULinfiltra COMPARISON: 07/10/2019 NUMBER OF VIEWS: One view. TECHNIQUE: Single frontal radiographic view of the chest acquired. LIMITATIONS: None. FINDINGS: LUNGS AND PLEURA: Small effusions. MEDIASTINUM AND HILAR STRUCTURES: No masses or contour abnormality. HEART AND VASCULATURE: Cardiac enlargement. Vascular congestion. BONES: No acute findings. HARDWARE: Nasogastric tube tip in the stomach. OTHER: No other significant finding. IMPRESSION: CARDIAC ENLARGEMENT. VASCULAR CONGESTION. Worse TECHNICAL DOCUMENTATION: JOB ID: [id number] [employer]- All Rights Reserved Reading location - IP/workstation name: [email or web address]
[2019-07-16] MEDS: IPRATROPIUM/ALBUTEROL 0.5-2.5 MG/3 ML AMPUL NEB PRN ×2 (12:35→20:39)
[2019-07-16 13:57] LABS: ANION GAP 7 (5-19); BLOOD UREA NITROGEN 18 mg/dL (7-20); CALCIUM 8.2 mg/dL (8.4-10.2); CARBON DIOXIDE 20 mmol/L (22-30); CHLORIDE 113 mmol/L (98-107); GLUCOSE 166 mg/dL (75-110); POTASSIUM 3.9 mmol/L (3.6-5.0)
[2019-07-16] MEDS: GABAPENTIN 300 MG CAPSULE PO SCH ×2 (14:39→21:27)
[2019-07-16] MEDS: DILTIAZEM HCL 60 MG TABLET PO SCH ×3 (14:40→21:27)
[2019-07-16 14:54] LABS: APPEARANCE,URINE CLOUDY; BILIRUBIN,URINE NEGATIVE (NEGATIVE); COLOR,URINE AMBER; GLUCOSE, URINE 50 mg/dL (NEGATIVE); KETONES,URINE NEGATIVE (NEGATIVE); LEUKOCYTE ESTERASE,URINE NEGATIVE (NEGATIVE); NITRITE,URINE NEGATIVE (NEGATIVE); PROTEIN,URINE 100 mg/dL (NEGATIVE); URINE SPECIFIC GRAVITY 1.025
[2019-07-16 18:49] LABS: ANION GAP 7 (5-19); BLOOD UREA NITROGEN 19 mg/dL (7-20); CARBON DIOXIDE 22 mmol/L (22-30); CHLORIDE 112 mmol/L (98-107); GLUCOSE 172 mg/dL (75-110); POTASSIUM 3.9 mmol/L (3.6-5.0)
[2019-07-16] MEDS: METOPROLOL TARTRATE 50 MG TABLET PO SCH (21:27)
[2019-07-17] MEDS: IPRATROPIUM BROMIDE 0.02% NEB 0.5 MG/2.5 ML AMPUL NEB SCH ×3 (00:19→16:06)
[2019-07-17] MEDS: LEVALBUTEROL HCL NEB 1.25 MG/3 ML AMPUL NEB SCH ×3 (00:19→16:06)
[2019-07-17] MEDS: NORMAL SALINE 1000 ML 1,000 ML IV PRN ×2 (05:19→15:28)
[2019-07-17] MEDS: GABAPENTIN 300 MG CAPSULE PO SCH ×3 (06:09→21:32)
[2019-07-17] MEDS: DILTIAZEM HCL 60 MG TABLET PO SCH ×3 (06:09→21:31)
[2019-07-17] MEDS: INSULIN REG, HUMAN 100 UNIT/ML 3 ML VIAL (PYX) SUBCUT SCH ×4 (06:09→17:43)
[2019-07-17] MEDS: ACETYLCYSTEINE 20% SOLN 800 MG/4 ML VIAL.NEB NEB SCH ×2 (07:39→19:37)
--- NOTE | 2019-07-17 08:01 | PDOC PROGRESS REPORT ---
Subjective Progress Note for:: 07/17/19 Subjective:: Still confused, yelling out when suctioned. Otherwise obtunded. Reason For Visit: PNEUMONIA, AFIB WITH RVR Physical Exam Vital Signs: Temp Pulse Resp BP Pulse Ox 99.5 F 81 9 L 136/66 H 98 07/17/19 03:52 07/17/19 07:21 07/17/19 06:00 07/17/19 05:51 07/17/19 06:00 Intake & Output 07/16/19 07/17/19 07/18/19 06:59 06:59 06:59 Intake Total 1885 4522 Output Total 640 665 Balance 1245 3857 Weight 111.9 kg 114.8 kg General appearance: PRESENT: no acute distress Eye exam: PRESENT: EOMI, PERRLA Ear exam: PRESENT: normal external ear exam Mouth exam: PRESENT: dry mucosa Additional comments: Mouth Breathing Respiratory exam: PRESENT: rhonchi - At bases mostly Additional comments: Seems to use abdominal muscles regularly, not in distres. Looks more comfortable breathing Cardiovascular exam: PRESENT: RRR Additional comments: Out of atrial fibrillation Vascular exam: PRESENT: normal capillary refill GI/Abdominal exam: PRESENT: soft Rectal exam: PRESENT: deferred Extremities exam: PRESENT: full ROM Musculoskeletal exam: PRESENT: normal inspection Neurological exam: PRESENT: altered Additional comments: Mostly obtunded but will wake and yell, crse during suctioning. Ativan held to a minimum Psychiatric exam: PRESENT: agitated Skin exam: PRESENT: normal color Results Laboratory Results: 07/15/19 14:45 07/16/19 18:04 07/16/19 07/16/19 07/16/19 13:19 14:12 18:04 Sodium 140.3 140.9 Potassium 3.9 3.9 Chloride 113 H 112 H Carbon Dioxide 20 L 22 Anion Gap 7 7 BUN 18 19 Creatinine 0.79 0.82 Est GFR ( Amer) > 60 > 60 Glucose 166 H 172 H Calcium 8.2 L 8.0 L Urine Color GABRIELA Urine Appearance CLOUDY Urine pH 6.0 Ur Specific [place] 1.025 Urine Protein 100 H Urine Glucose (UA) 50 H Urine Ketones NEGATIVE Urine Blood LARGE H Urine Nitrite NEGATIVE Ur Leukocyte Esterase NEGATIVE Urine WBC (Auto) 76 Urine RBC (Auto) >182 07/10/19 07/11/19 07/11/19 18:11 00:37 00:37 Creatine Kinase 108 CK-MB (CK-2) 1.20 0.92 Troponin I < 0.012 < 0.012 NT-Pro-B Natriuret Pep 07/11/19 07/11/19 07/11/19 07:46 07:46 13:22 Creatine Kinase 98 92 CK-MB (CK-2) 1.11 Troponin I < 0.012 NT-Pro-B Natriuret Pep 07/11/19 07/12/19 13:22 15:55 Creatine Kinase CK-MB (CK-2) 1.02 Troponin I < 0.012 NT-Pro-B Natriuret Pep 2760 H Impressions: Head CT 07/10/19 17:56 IMPRESSION: NO ACUTE INTRACRANIAL FINDINGS. EVIDENCE OF ACUTE STROKE: NO. Chest CT 07/14/19 08:00 IMPRESSION: 1. Slightly improved pleural effusions bilaterally. Small effusions remain with associated volume loss in the lower lobes. 2. Stable to perhaps minimally improved pericardial fluid. 3. New focal ground-glass infiltrate in the left upper lobe. KUB X-Ray 07/15/19 10:34 IMPRESSION: Nasogastric tube tip and side port in the stomach Chest X-Ray 07/16/19 10:30 IMPRESSION: CARDIAC ENLARGEMENT. VASCULAR CONGESTION. Worse Assessment & Plan - Diagnosis (1) Alcohol withdrawal delirium Is this a current diagnosis for this admission?: Yes Plan: Still present. 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 Thiamine increased on the chance this is acute Wernieke's and neurontin dose reduced. High mortality rate of about 15%. (2) Atrial fibrillation with RVR Is this a current diagnosis for this admission?: Yes Plan: Now in SR. On PO cardizem and IV drip shut off since 12A (3) Generalized weakness Is this a current diagnosis for this admission?: Yes Plan: Unchanged (4) Left lower lobe pneumonia Qualifiers: Pneumonia type: due to unspecified organism Qualified Code(s): J18.1 - Lobar pneumonia, unspecified organism Is this a current diagnosis for this admission?: Yes Plan: Present still radiographically but not clinically (5) Pericardial effusion Is this a current diagnosis for this admission?: Yes Plan: Not actively causing any hemodynamic compromise. (6) Esophageal varices Qualifiers: Esophageal varices type: unspecified type Esophageal varices bleeding: without bleeding Qualified Code(s): I85.00 - Esophageal varices without bleeding Is this a current diagnosis for this admission?: Yes Plan: Stable. H/H without signicant change. (7) Left upper lobe pulmonary infiltrate Is this a current diagnosis for this admission?: Yes Plan: Now on meropenen (8) Aspiration into airway Qualifiers: Encounter type: subsequent encounter Qualified Code(s): T17.908D - Unspecified foreign body in respiratory tract, part unspecified causing other injury, subsequent encounter Is this a current diagnosis for this admission?: Yes Plan: Patient likely had an epidode of asiration give RLL appearance. Karrie for bipap and mental status. He seems to be improved. Minimise bipap if possible. - Time Time Spent with patient: 25-34 minutes Medications reviewed and adjusted accordingly: Yes Anticipated discharge: SNF Within: Other - When stable and alert - Inpatient Certification Medical Necessity: Failure to Improve With Outpatient Therapy, Significant Comorbidiites Make Outpatient Treatment Too Risky, Need Close Monitoring Due to Risk of Patient Decompensation, Need For Continuous Telemetry Monitoring
[2019-07-17 08:31] LABS: ANION GAP 5 (5-19); BLOOD UREA NITROGEN 20 mg/dL (7-20); CARBON DIOXIDE 23 mmol/L (22-30); CHLORIDE 115 mmol/L (98-107); GLUCOSE 158 mg/dL (75-110); POTASSIUM 4.1 mmol/L (3.6-5.0)
[2019-07-17] MEDS: METOPROLOL TARTRATE 50 MG TABLET PO SCH ×2 (09:17→21:31)
[2019-07-17] MEDS: MEROPENEM 1 GM in NORMAL SALINE 50 ML IV SCH ×2 (09:18→21:30)
[2019-07-17] MEDS: THIAMINE HCL 100 MG TABLET NG SCH (09:18)
[2019-07-17] MEDS: ENOXAPARIN SODIUM INJ 100 MG/1 ML DISP.SYRIN SUBCUT SCH ×2 (09:18→21:31)
[2019-07-17] MEDS: FOLIC ACID 1 MG TABLET NG SCH (09:18)
[2019-07-17] MEDS ORDERED: NORMAL SALINE 500 ML IV ONE (12:30)
[2019-07-17] MEDS ORDERED: FUROSEMIDE INJ/PF 20 MG/2 ML SDV ONE (15:15)
[2019-07-17] MEDS: IPRATROPIUM/ALBUTEROL 0.5-2.5 MG/3 ML AMPUL NEB PRN (19:37)
[2019-07-17] MEDS: LORAZEPAM INJ 2 MG/1 ML VIAL IV PRN (21:32)
[2019-07-18] MEDS: LEVALBUTEROL HCL NEB 1.25 MG/3 ML AMPUL NEB SCH ×3 (00:47→16:12)
[2019-07-18] MEDS: IPRATROPIUM BROMIDE 0.02% NEB 0.5 MG/2.5 ML AMPUL NEB SCH ×3 (00:47→16:12)
[2019-07-18] MEDS: INSULIN REG, HUMAN 100 UNIT/ML 3 ML VIAL (PYX) SUBCUT SCH ×4 (00:59→17:31)
[2019-07-18] MEDS: NORMAL SALINE 1000 ML 1,000 ML IV PRN ×2 (01:31→13:48)
[2019-07-18 04:16] LABS: ABSOLUTE BASOPHILS # (AUTO) 0.1 10^3/uL (0.0-0.2); ABSOLUTE EOSINOPHILS # (AUTO) 0.1 10^3/uL (0.0-0.6); BASOPHILS % (AUTO) 0.7 % (0-2); EOSINOPHILS % (AUTO) 0.8 % (0-6); HEMATOCRIT 31.8 % (37.9-51.0); HEMOGLOBIN 10.6 g/dL (13.5-17.0); LYMPHOCYTES % (AUTO) 13.1 % (13-45); MEAN CORPUSCULAR HGB CONC 33.3 g/dL (32.0-36.0); MEAN CORPUSCULAR VOLUME 99 fl (80-97); MONOCYTES % (AUTO) 12.9 % (3-13); PLATELET COUNT 277 10^3/uL (150-450); RED BLOOD COUNT 3.21 10^6/uL (4.35-5.55); RED CELL DISTRIBUTION WIDTH 13.4 % (11.5-14.0); SEGMENTED NEUTROPHILS % (AUTO) 72.5 % (42-78); TOTAL CELLS COUNTED % (AUTO) 100 %; WHITE BLOOD COUNT 15.2 10^3/uL (4.0-10.5)
[2019-07-18] MEDS: GABAPENTIN 300 MG CAPSULE PO SCH ×3 (06:03→21:56)
[2019-07-18] MEDS: DILTIAZEM HCL 60 MG TABLET PO SCH ×3 (06:03→22:50)
[2019-07-18 07:32] LABS: APPEARANCE,URINE SLIGHTLY-CLOUDY; BILIRUBIN,URINE NEGATIVE (NEGATIVE); COLOR,URINE YELLOW; GLUCOSE, URINE NEGATIVE (NEGATIVE); KETONES,URINE NEGATIVE (NEGATIVE); LEUKOCYTE ESTERASE,URINE TRACE (NEGATIVE); NITRITE,URINE NEGATIVE (NEGATIVE); PROTEIN,URINE 30 mg/dL (NEGATIVE); URINE SPECIFIC GRAVITY 1.016
[2019-07-18] MEDS ORDERED: VANCOMYCIN HCL 0 MG in DEXTROSE 5%-WATER 250 ML IV NR (08:30)
[2019-07-18] MEDS: ACETYLCYSTEINE 20% SOLN 800 MG/4 ML VIAL.NEB NEB SCH ×2 (08:51→21:21)
[2019-07-18] MEDS: ENOXAPARIN SODIUM INJ 100 MG/1 ML DISP.SYRIN SUBCUT SCH ×2 (09:23→21:59)
[2019-07-18] MEDS: METOPROLOL TARTRATE 50 MG TABLET PO SCH ×2 (09:23→21:57)
[2019-07-18] MEDS: THIAMINE HCL 100 MG TABLET NG SCH (09:23)
[2019-07-18] MEDS: FOLIC ACID 1 MG TABLET NG SCH (09:23)
[2019-07-18] MEDS: MEROPENEM 1 GM in NORMAL SALINE 50 ML IV SCH ×2 (09:24→22:03)
[2019-07-18] MEDS: VANCOMYCIN HCL 1,000 MG in DEXTROSE 5%-WATER 250 ML IV SCH ×2 (10:06→18:01)
--- NOTE | 2019-07-18 10:43 | PDOC PROGRESS REPORT ---
Subjective Progress Note for:: 07/18/19 Subjective:: ICU progress note Pt had no acute overnight events. Is more responsive per nursing staff. Reason For Visit: PNEUMONIA, AFIB WITH RVR Physical Exam Vital Signs: Temp Pulse Resp BP Pulse Ox 97.0 F 81 16 138/57 H 96 07/18/19 08:00 07/18/19 10:00 07/18/19 10:00 07/18/19 10:00 07/18/19 10:00 Intake & Output 07/17/19 07/18/19 07/19/19 06:59 06:59 06:59 Intake Total 4522 2100 50 Output Total 665 2500 365 Balance 3857 -400 -315 Weight 114.8 kg 113.8 kg General appearance: PRESENT: no acute distress, well-developed, well-nourished Head exam: PRESENT: atraumatic, normocephalic Respiratory exam: PRESENT: crackles, unlabored Cardiovascular exam: PRESENT: RRR GI/Abdominal exam: PRESENT: soft, other - non-tender, non-distended Extremities exam: PRESENT: other - 1+ pre-tibial edema Results Laboratory Results: 07/18/19 03:43 07/17/19 08:02 07/18/19 07/18/19 07/18/19 03:43 06:52 09:26 WBC 15.2 H RBC 3.21 L Hgb 10.6 L Hct 31.8 L MCV 99 H MCH 33.0 MCHC 33.3 RDW 13.4 Plt Count 277 Seg Neutrophils % 72.5 Magnesium 2.3 Urine Color YELLOW Urine Appearance SLIGHTLY-CLOUDY Urine pH 6.0 Ur Specific [place] 1.016 Urine Protein 30 H Urine Glucose (UA) NEGATIVE Urine Ketones NEGATIVE Urine Blood LARGE H Urine Nitrite NEGATIVE Ur Leukocyte Esterase TRACE H Urine WBC (Auto) 8 Urine RBC (Auto) >182 07/10/19 07/11/19 07/11/19 18:11 00:37 00:37 Creatine Kinase 108 CK-MB (CK-2) 1.20 0.92 Troponin I < 0.012 < 0.012 NT-Pro-B Natriuret Pep 07/11/19 07/11/19 07/11/19 07:46 07:46 13:22 Creatine Kinase 98 92 CK-MB (CK-2) 1.11 Troponin I < 0.012 NT-Pro-B Natriuret Pep 07/11/19 07/12/19 13:22 15:55 Creatine Kinase CK-MB (CK-2) 1.02 Troponin I < 0.012 NT-Pro-B Natriuret Pep 2760 H Impressions: Head CT 07/10/19 17:56 IMPRESSION: NO ACUTE INTRACRANIAL FINDINGS. EVIDENCE OF ACUTE STROKE: NO. Chest CT 07/14/19 08:00 IMPRESSION: 1. Slightly improved pleural effusions bilaterally. Small effusions remain with associated volume loss in the lower lobes. 2. Stable to perhaps minimally improved pericardial fluid. 3. New focal ground-glass infiltrate in the left upper lobe. KUB X-Ray 07/15/19 10:34 IMPRESSION: Nasogastric tube tip and side port in the stomach Chest X-Ray 07/16/19 10:30 IMPRESSION: CARDIAC ENLARGEMENT. VASCULAR CONGESTION. Worse Assessment & Plan - Diagnosis (1) Aspiration pneumonia Qualifiers: Lung location: unspecified part of lung Is this a current diagnosis for this admission?: Yes (2) Atrial fibrillation with RVR Is this a current diagnosis for this admission?: Yes (3) Alcohol withdrawal delirium Is this a current diagnosis for this admission?: Yes (4) Pericardial effusion Is this a current diagnosis for this admission?: Yes (5) Esophageal varices Qualifiers: Esophageal varices type: unspecified type Esophageal varices bleeding: without bleeding Qualified Code(s): I85.00 - Esophageal varices without bleeding Is this a current diagnosis for this admission?: Yes Provider Note Provider Note: Assessment: 78 yo man with aspiration PNA, afib with RVR, alcohol withdrawal and delirium, pericardial effusion, h/o esophageal varices Plan: 1. Respiratory: stable on nasal cannula 2. Pulmonary: aspiration PNA. WBC increasing. Continue meropenem, add vanc. re peat cultures 3. CV: afib, rate is controlled on lopressor and po cardizem. Pericardial effusion, asymptomatic 4. Psych: ETOH withdrawal and delirum. Mental status improving 5. Nutrition: tube feeds on hold due to aspiration. Will get speech eval. Pt may need PEG tube 6. Heme: on therapeutic lovenox for afib. Will hold off on starting eliquis for now pending possible PEG tube placement 7. GI: h/o esophageal varices. No signs of bleeding 8. Spoke with at bedside. 9. Continue to monitor in ICU
[2019-07-18 17:19] LABS: ANION GAP 7 (5-19); BLOOD UREA NITROGEN 17 mg/dL (7-20); CALCIUM 8.2 mg/dL (8.4-10.2); CARBON DIOXIDE 22 mmol/L (22-30); CHLORIDE 113 mmol/L (98-107); GLUCOSE 95 mg/dL (75-110); POTASSIUM 4.1 mmol/L (3.6-5.0)
[2019-07-18] MEDS: LORAZEPAM INJ 2 MG/1 ML VIAL IV PRN (20:38)
[2019-07-18] MEDS: IPRATROPIUM/ALBUTEROL 0.5-2.5 MG/3 ML AMPUL NEB PRN (21:21)
[2019-07-18] MEDS: METOPROLOL TARTRATE PF/INJ 5 MG/5 ML SDV IV PRN (21:54)
[2019-07-19] MEDS: IPRATROPIUM BROMIDE 0.02% NEB 0.5 MG/2.5 ML AMPUL NEB SCH ×2 (00:14→08:56)
[2019-07-19] MEDS: LEVALBUTEROL HCL NEB 1.25 MG/3 ML AMPUL NEB SCH ×2 (00:14→08:56)
[2019-07-19] MEDS: INSULIN REG, HUMAN 100 UNIT/ML 3 ML VIAL (PYX) SUBCUT SCH ×5 (01:59→23:19)
[2019-07-19] MEDS: VANCOMYCIN HCL 1,000 MG in DEXTROSE 5%-WATER 250 ML IV SCH ×3 (04:18→18:34)
[2019-07-19] MEDS: GABAPENTIN 300 MG CAPSULE PO SCH ×3 (06:50→21:40)
[2019-07-19] MEDS: DILTIAZEM HCL 60 MG TABLET PO SCH ×3 (06:50→21:40)
[2019-07-19 08:31] LABS: ANION GAP 5 (5-19); BLOOD UREA NITROGEN 17 mg/dL (7-20); CALCIUM 8.2 mg/dL (8.4-10.2); CARBON DIOXIDE 24 mmol/L (22-30); CHLORIDE 113 mmol/L (98-107); GLUCOSE 119 mg/dL (75-110); POTASSIUM 4.2 mmol/L (3.6-5.0)
[2019-07-19] MEDS: ACETYLCYSTEINE 20% SOLN 800 MG/4 ML VIAL.NEB NEB SCH (08:56)
[2019-07-19 09:02] LABS: ABSOLUTE BASOPHILS # (AUTO) 0.1 10^3/uL (0.0-0.2); ABSOLUTE EOSINOPHILS # (AUTO) 0.2 10^3/uL (0.0-0.6); ABSOLUTE LYMPHOCYTES (AUTO) 1.6 10^3/uL (0.5-4.7); ABSOLUTE MONOCYTES (AUTO) 0.9 10^3/uL (0.1-1.4); ABSOLUTE NEUT (AUTO) 8.8 10^3/uL (1.7-8.2); BASOPHILS % (AUTO) 0.9 % (0-2); EOSINOPHILS % (AUTO) 1.7 % (0-6); HEMATOCRIT 31.1 % (37.9-51.0); HEMOGLOBIN 10.3 g/dL (13.5-17.0); LYMPHOCYTES % (AUTO) 13.9 % (13-45); MEAN CORPUSCULAR HEMOGLOBIN 32.8 pg (27.0-33.4); MEAN CORPUSCULAR HGB CONC 33.1 g/dL (32.0-36.0); MEAN CORPUSCULAR VOLUME 99 fl (80-97); MONOCYTES % (AUTO) 8.1 % (3-13); PLATELET COUNT 278 10^3/uL (150-450); RED BLOOD COUNT 3.14 10^6/uL (4.35-5.55); RED CELL DISTRIBUTION WIDTH 13.3 % (11.5-14.0); SEGMENTED NEUTROPHILS % (AUTO) 75.4 % (42-78); TOTAL CELLS COUNTED % (AUTO) 100 %; WHITE BLOOD COUNT 11.6 10^3/uL (4.0-10.5)
[2019-07-19] MEDS ORDERED: INFLUENZA QUAD (6MOS+) 2019-20 VAC 0.5 ML SYR IM ONE (09:05)
[2019-07-19] MEDS ORDERED: FUROSEMIDE INJ/PF 40 MG/4 ML SDV IV ONE (09:57)
--- NOTE | 2019-07-19 09:57 | PDOC PROGRESS REPORT ---
Subjective Progress Note for:: 07/19/19 Subjective:: ICU Progress Note. Pt had no acute overnight events. Reason For Visit: PNEUMONIA, AFIB WITH RVR Physical Exam Vital Signs: Temp Pulse Resp BP Pulse Ox 98.1 F 82 22 H 159/71 H 97 07/19/19 08:00 07/19/19 08:00 07/19/19 08:00 07/19/19 08:00 07/19/19 08:00 Intake & Output 07/18/19 07/19/19 07/20/19 06:59 06:59 06:59 Intake Total 2100 2850 Output Total 2500 1900 130 Balance -400 950 -130 Weight 113.8 kg 113.6 kg General appearance: PRESENT: no acute distress, well-developed, well-nourished Head exam: PRESENT: atraumatic, normocephalic Respiratory exam: PRESENT: unlabored, other - diffuse rhonchi throughout Cardiovascular exam: PRESENT: RRR GI/Abdominal exam: PRESENT: soft, other - non-tender, non-distended Gentrourinary exam: PRESENT: indwelling catheter Extremities exam: PRESENT: other - trace pre-tibial edema Results Laboratory Results: 07/19/19 07:49 07/19/19 07:49 07/18/19 07/18/19 07/19/19 09:26 16:09 07:49 WBC RBC Hgb Hct MCV MCH MCHC RDW Plt Count Seg Neutrophils % Sodium 141.5 Potassium 4.1 Chloride 113 H Carbon Dioxide 22 Anion Gap 7 BUN 17 Creatinine 0.67 Est GFR ( Amer) > 60 Glucose 95 Calcium 8.2 L Magnesium 2.3 2.3 07/19/19 07/19/19 07:49 07:49 WBC 11.6 H RBC 3.14 L Hgb 10.3 L Hct 31.1 L MCV 99 H MCH 32.8 MCHC 33.1 RDW 13.3 Plt Count 278 Seg Neutrophils % 75.4 Sodium 142.0 Potassium 4.2 Chloride 113 H Carbon Dioxide 24 Anion Gap 5 BUN 17 Creatinine 0.70 Est GFR ( Amer) > 60 Glucose 119 H Calcium 8.2 L Magnesium 07/10/19 07/11/19 07/11/19 18:11 00:37 00:37 Creatine Kinase 108 CK-MB (CK-2) 1.20 0.92 Troponin I < 0.012 < 0.012 NT-Pro-B Natriuret Pep 07/11/19 07/11/19 07/11/19 07:46 07:46 13:22 Creatine Kinase 98 92 CK-MB (CK-2) 1.11 Troponin I < 0.012 NT-Pro-B Natriuret Pep 07/11/19 07/12/19 13:22 15:55 Creatine Kinase CK-MB (CK-2) 1.02 Troponin I < 0.012 NT-Pro-B Natriuret Pep 2760 H Impressions: Head CT 07/10/19 17:56 IMPRESSION: NO ACUTE INTRACRANIAL FINDINGS. EVIDENCE OF ACUTE STROKE: NO. Chest CT 07/14/19 08:00 IMPRESSION: 1. Slightly improved pleural effusions bilaterally. Small effusions remain with associated volume loss in the lower lobes. 2. Stable to perhaps minimally improved pericardial fluid. 3. New focal ground-glass infiltrate in the left upper lobe. KUB X-Ray 07/15/19 10:34 IMPRESSION: Nasogastric tube tip and side port in the stomach Chest X-Ray 07/16/19 10:30 IMPRESSION: CARDIAC ENLARGEMENT. VASCULAR CONGESTION. Worse Assessment & Plan - Diagnosis (1) Atrial fibrillation with RVR Is this a current diagnosis for this admission?: Yes (2) Alcohol withdrawal delirium Is this a current diagnosis for this admission?: Yes (3) Esophageal varices Qualifiers: Esophageal varices type: unspecified type Esophageal varices bleeding: without bleeding Qualified Code(s): I85.00 - Esophageal varices without bleeding Is this a current diagnosis for this admission?: Yes (4) Aspiration pneumonia Qualifiers: Lung location: unspecified part of lung Is this a current diagnosis for this admission?: Yes - Plan Summary Plan Summary: Assessment: 78 yo man with aspiration PNA, afib with RVR, alcohol withdrawal and delirium, pericardial effusion, h/o esophageal varices Plan: 1. Respiratory: stable on 3 liters nasal cannula 2. Pulmonary: aspiration PNA. ATBX Day 2, vanc and merropenem. 3. CV: afib, rate is controlled on lopressor and po cardizem. Pericardial effusion, asymptomatic. HTN. Will give lasix 4. Psych: ETOH withdrawal and delirum. Mental status improving 5. Nutrition: tube feeds on hold due to aspiration. Will get speech eval today. Pt may need PEG tube 6. Heme: on therapeutic lovenox for afib. Will hold off on starting eliquis for now pending possible PEG tube placement 7. GI: h/o esophageal varices. No signs of bleeding 8. Stable for transfer out of ICU 9. Will consult case management for discharge planning as pt may need SNF.
[2019-07-19] MEDS: MEROPENEM 1 GM in NORMAL SALINE 50 ML IV SCH ×2 (10:02→21:40)
[2019-07-19] MEDS: THIAMINE HCL 100 MG TABLET NG SCH (10:03)
[2019-07-19] MEDS: METOPROLOL TARTRATE 50 MG TABLET PO SCH ×2 (10:03→21:39)
[2019-07-19] MEDS: ENOXAPARIN SODIUM INJ 100 MG/1 ML DISP.SYRIN SUBCUT SCH ×2 (10:03→21:39)
[2019-07-19] MEDS: FOLIC ACID 1 MG TABLET NG SCH (10:03)
[2019-07-19] MEDS: NORMAL SALINE 1000 ML 1,000 ML IV PRN (15:00)
[2019-07-19] MEDS ORDERED: LORAZEPAM INJ 2 MG/1 ML VIAL IV PRN (15:30)
[2019-07-19 19:02] LABS: VANCOMYCIN,TROUGH 11.2 ug/mL (5.0-20.0)
[2019-07-20] MEDS: VANCOMYCIN HCL 1,000 MG in DEXTROSE 5%-WATER 250 ML IV SCH ×3 (02:04→19:45)
[2019-07-20 03:44] LABS: HEMATOCRIT 32.3 % (37.9-51.0); HEMOGLOBIN 10.9 g/dL (13.5-17.0); MEAN CORPUSCULAR HGB CONC 33.6 g/dL (32.0-36.0); MEAN CORPUSCULAR VOLUME 98 fl (80-97); PLATELET COUNT 265 10^3/uL (150-450); RED CELL DISTRIBUTION WIDTH 13.3 % (11.5-14.0)
[2019-07-20] MEDS: INSULIN REG, HUMAN 100 UNIT/ML 3 ML VIAL (PYX) SUBCUT SCH ×3 (05:23→17:31)
[2019-07-20] MEDS: GABAPENTIN 300 MG CAPSULE PO SCH (05:29)
[2019-07-20] MEDS: DILTIAZEM HCL 60 MG TABLET PO SCH ×3 (05:29→21:50)
[2019-07-20] MEDS: NORMAL SALINE 1000 ML 1,000 ML IV PRN (05:41)
--- NOTE | 2019-07-20 09:18 | PDOC PROGRESS REPORT ---
Subjective Progress Note for:: 07/20/19 Subjective:: ICU Progress Note Pt remains in the ICU. Had swallowing eval this am which he failed. Remains somnonlent. Reason For Visit: PNEUMONIA, AFIB WITH RVR Physical Exam Vital Signs: Temp Pulse Resp BP Pulse Ox 96.5 F L 74 18 152/59 H 99 07/20/19 08:00 07/20/19 08:00 07/20/19 08:00 07/20/19 08:00 07/20/19 08:00 Intake & Output 07/19/19 07/20/19 07/21/19 06:59 06:59 06:59 Intake Total 2850 1550 Output Total 1900 2055 Balance 950 -505 Weight 113.6 kg 111.4 kg General appearance: PRESENT: no acute distress, well-developed, well-nourished Head exam: PRESENT: atraumatic, normocephalic Respiratory exam: PRESENT: unlabored, other - coarse breath sounds throughout Cardiovascular exam: PRESENT: RRR GI/Abdominal exam: PRESENT: soft, other - non-tender, non-distended Gentrourinary exam: PRESENT: indwelling catheter Extremities exam: PRESENT: other - trace pre-tibial edema Results Laboratory Results: 07/20/19 03:24 07/19/19 07:49 07/20/19 07/20/19 03:24 03:24 WBC 12.0 H RBC 3.30 L Hgb 10.9 L Hct 32.3 L MCV 98 H MCH 33.0 MCHC 33.6 RDW 13.3 Plt Count 265 Magnesium 2.0 07/10/19 07/11/19 07/11/19 18:11 00:37 00:37 Creatine Kinase 108 CK-MB (CK-2) 1.20 0.92 Troponin I < 0.012 < 0.012 NT-Pro-B Natriuret Pep 07/11/19 07/11/19 07/11/19 07:46 07:46 13:22 Creatine Kinase 98 92 CK-MB (CK-2) 1.11 Troponin I < 0.012 NT-Pro-B Natriuret Pep 07/11/19 07/12/19 13:22 15:55 Creatine Kinase CK-MB (CK-2) 1.02 Troponin I < 0.012 NT-Pro-B Natriuret Pep 2760 H Impressions: Head CT 07/10/19 17:56 IMPRESSION: NO ACUTE INTRACRANIAL FINDINGS. EVIDENCE OF ACUTE STROKE: NO. Chest CT 07/14/19 08:00 IMPRESSION: 1. Slightly improved pleural effusions bilaterally. Small effusions remain with associated volume loss in the lower lobes. 2. Stable to perhaps minimally improved pericardial fluid. 3. New focal ground-glass infiltrate in the left upper lobe. KUB X-Ray 07/15/19 10:34 IMPRESSION: Nasogastric tube tip and side port in the stomach Chest X-Ray 07/16/19 10:30 IMPRESSION: CARDIAC ENLARGEMENT. VASCULAR CONGESTION. Worse Assessment & Plan - Diagnosis (1) Atrial fibrillation with RVR Is this a current diagnosis for this admission?: Yes (2) Alcohol withdrawal delirium Is this a current diagnosis for this admission?: Yes (3) Esophageal varices Qualifiers: Esophageal varices type: unspecified type Esophageal varices bleeding: without bleeding Qualified Code(s): I85.00 - Esophageal varices without bleeding Is this a current diagnosis for this admission?: Yes (4) Aspiration pneumonia Qualifiers: Lung location: unspecified part of lung Is this a current diagnosis for this admission?: Yes - Plan Summary Plan Summary: Assessment: 78 yo man with aspiration PNA, afib with RVR, alcohol withdrawal and delirium, pericardial effusion, h/o esophageal varices Plan: 1. Respiratory: stable on 3 liters nasal cannula. Will wean to RA as tolerated 2. Pulmonary: aspiration PNA. ATBX Day 3, vanc and merropenem. 3. CV: afib, rate is controlled on lopressor and po cardizem. Pericardial effusion, asymptomatic. HTN. s/p lasix yesterday 4. Psych: ETOH withdrawal and delirum. Mental status improving.Continues to be somnolent. Will d/c prn haldol and ativan 5. Nutrition: tube feeds on hold due to aspiration. Failed swallow eval today.Wll need PEG tube. Will resume tube feeds 6. Heme: on therapeutic lovenox for afib. Will hold off on starting eliquis for now pending possible PEG tube placement 7. GI: h/o esophageal varices. No signs of bleeding 8. Stable for transfer out of ICU 9. Will consult case management for discharge planning as pt may need SNF.
[2019-07-20] MEDS: METOPROLOL TARTRATE 50 MG TABLET PO SCH ×2 (12:03→21:50)
[2019-07-20] MEDS: FOLIC ACID 1 MG TABLET NG SCH (12:03)
[2019-07-20] MEDS: MEROPENEM 1 GM in NORMAL SALINE 50 ML IV SCH ×2 (12:04→21:49)
[2019-07-20] MEDS: THIAMINE HCL 100 MG TABLET NG SCH (12:04)
[2019-07-20 12:45] LABS: ANION GAP 7 (5-19); BLOOD UREA NITROGEN 16 mg/dL (7-20); CALCIUM 8.2 mg/dL (8.4-10.2); CARBON DIOXIDE 22 mmol/L (22-30); CHLORIDE 110 mmol/L (98-107); GLUCOSE 127 mg/dL (75-110); POTASSIUM 3.8 mmol/L (3.6-5.0)
--- NOTE | 2019-07-20 16:29 | PDOC CONSULTATION ---
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 I been requested to evaluate the patient for placement of a PEG or other mean of enteral feeding. Past Medical History Cardiac Medical History: Denies: Atrial Fibrillation, Coronary Artery Disease, Myocardial Infarction, Hypertension Pulmonary Medical History: Denies: Asthma, Chronic Obstructive Pulmonary Disease (COPD), Respiratory Failure EENT Medical History: Denies: Cataracts, Ears - Hearing aids Neurological Medical History: Denies: Hemorrhagic CVA, Ischemic CVA, Seizures Endocrine Medical History: Denies: Diabetes Mellitus Type 1, Diabetes Mellitus Type 2, Hyperthyroidism, Hypothyroidism Renal/ Medical History: Denies: Chronic Kidney Disease, Nephrolithiasis Malignancy Medical History: Reports: None GI Medical History: Reports: Cirrhosis, Gastroesophageal Reflux Disease, Peptic Ulcer Disease, Other - History of upper GI bleed Denies: Crohn's Disease, Hepatitis, Ulcerative Colitis Musculoskeltal Medical History: Denies: Arthritis, Gout Skin Medical History: Denies: Eczema, Psoriasis Psychiatric Medical History: Reports: Alcohol Dependency Denies: Depression, Substance Abuse, Tobacco Dependency Traumatic Medical History: Reports: None Hematology: Denies: Anemia, Bleeding Tendencies Infectious Medical History: Reports: None Past Surgical History Past Surgical History: Reports: Other - Peptic ulcer surgery abdominal midline scar Social History Lives with: Spouse/Significant other Smoking Status: Former Smoker Cigars Per Day: 1 Last Time Smoked: 1987 Frequency of Alcohol Use: Heavy - Patient evasive but admits to drinking heavily on a daily basis Hx Recreational Drug Use: No Drugs: None Hx Prescription Drug Abuse: No - Advance Directive Resuscitation Status: Full Code Family History Family History: Hypertension. denies: CAD, DM, Malignancy Parental Family History Reviewed: No Children Family History Reviewed: No Sibling(s) Family History Reviewed.: No Medication/Allergy Home Medications: Gabapentin [Neurontin 300 mg Capsule] 600 mg PO TID 07/11/19 Allergies/Adverse Reactions: No Known Allergies Allergy (Unverified 12/23/16 05:45) Physical Exam Vital Signs: Temp Pulse Resp BP Pulse Ox 97.6 F 76 16 152/69 H 100 07/20/19 12:00 07/20/19 12:00 07/20/19 12:00 07/20/19 12:00 07/20/19 12:00 Intake & Output 07/19/19 07/20/19 07/21/19 06:59 06:59 06:59 Intake Total 2850 1850 Output Total 1900 2055 300 Balance 950 -205 -300 Weight 113.6 kg 111.4 kg General appearance: PRESENT: no acute distress, obese, other - Poorly cooperative, sleeping but arousable, able to follow commands all the times Head exam: PRESENT: atraumatic Eye exam: PRESENT: EOMI, PERRLA Mouth exam: PRESENT: moist, neck supple Teeth exam: PRESENT: poor dentation Neck exam: PRESENT: other - Creased range of motion Respiratory exam: PRESENT: clear to auscultation abhilash Cardiovascular exam: PRESENT: irregular rhythm Vascular exam: PRESENT: normal capillary refill GI/Abdominal exam: PRESENT: normal bowel sounds, soft, other - Upper midline well-healed surgical scar Rectal exam: PRESENT: deferred Gentrourinary exam: PRESENT: indwelling catheter Extremities exam: PRESENT: +2 edema, other - Decreased range of motion of both upper and lower extremities Musculoskeletal exam: PRESENT: other - The above Neurological exam: PRESENT: altered, other - 100, unable to follow commands all the times Psychiatric exam: PRESENT: unusual affect Results Laboratory Results: 07/20/19 03:24 07/20/19 03:24 07/20/19 07/20/19 07/20/19 03:24 03:24 03:24 WBC 12.0 H RBC 3.30 L Hgb 10.9 L Hct 32.3 L MCV 98 H MCH 33.0 MCHC 33.6 RDW 13.3 Plt Count 265 Sodium 138.9 Potassium 3.8 Chloride 110 H Carbon Dioxide 22 Anion Gap 7 BUN 16 Creatinine 0.67 Est GFR ( Amer) > 60 Glucose 127 H Calcium 8.2 L Magnesium 2.0 07/18/19 16:30 Tracheal Aspirate Gram Stain - Final 07/18/19 16:30 Tracheal Aspirate Sputum Culture - Final GREATLY REDUCED NORMAL FRANK 07/10/19 07/11/19 07/11/19 18:11 00:37 00:37 Creatine Kinase 108 CK-MB (CK-2) 1.20 0.92 Troponin I < 0.012 < 0.012 NT-Pro-B Natriuret Pep 07/11/19 07/11/19 07/11/19 07:46 07:46 13:22 Creatine Kinase 98 92 CK-MB (CK-2) 1.11 Troponin I < 0.012 NT-Pro-B Natriuret Pep 07/11/19 07/12/19 13:22 15:55 Creatine Kinase CK-MB (CK-2) 1.02 Troponin I < 0.012 NT-Pro-B Natriuret Pep 2760 H Impressions: Head CT 07/10/19 17:56 IMPRESSION: NO ACUTE INTRACRANIAL FINDINGS. EVIDENCE OF ACUTE STROKE: NO. Chest CT 07/14/19 08:00 IMPRESSION: 1. Slightly improved pleural effusions bilaterally. Small effusions remain with associated volume loss in the lower lobes. 2. Stable to perhaps minimally improved pericardial fluid. 3. New focal ground-glass infiltrate in the left upper lobe. KUB X-Ray 07/15/19 10:34 IMPRESSION: Nasogastric tube tip and side port in the stomach Chest X-Ray 07/16/19 10:30 IMPRESSION: CARDIAC ENLARGEMENT. VASCULAR CONGESTION. Worse Assessment & Plan - Diagnosis (1) Aspiration into airway Qualifiers: Encounter type: initial encounter Qualified Code(s): T17.908A - Unspecified foreign body in respiratory tract, part unspecified causing other injury, initial encounter Is this a current diagnosis for this admission?: Yes (2) Alcohol withdrawal delirium Is this a current diagnosis for this admission?: Yes (3) Atrial fibrillation with RVR Is this a current diagnosis for this admission?: Yes (4) Generalized weakness Is this a current diagnosis for this admission?: Yes (5) Alcohol dependence Qualifiers: Substance use status: uncomplicated Qualified Code(s): F10.20 - Alcohol dependence, uncomplicated Is this a current diagnosis for this admission?: Yes (6) Coffee ground emesis Is this a current diagnosis for this admission?: No (7) Esophageal varices Qualifiers: Esophageal varices type: unspecified type Esophageal varices bleeding: without bleeding Qualified Code(s): I85.00 - Esophageal varices without bleeding Is this a current diagnosis for this admission?: Yes (8) Peptic ulcer disease Is this a current diagnosis for this admission?: Yes (9) Upper GI bleed Is this a current diagnosis for this admission?: No - Plan Summary Plan Summary: Assessment: 78-year-old male with multiple medical problems, comorbidities, #2 past history of gastric surgery (hemigastrectomy) Presence of gastric and esophageal varices by history of upper gas intestinal bleeding as well as CT scan findings (CT scan abdomen pelvis done in 2014) Dysphasia with aspiration of food The patient appears to be poorly cooperative and neurologically obtunded Plan: Due to the above physical and history findings, the patient represents a poor candidate for both PEG placement and or placement of a surgical feeding tube (open gastrostomy or feeding jejunostomy). This is because of his distorted possible surgical gastric intestinal anatomy (hemigastrectomy) and/or the presence of gastric varices or subcutaneous anterior abdominal wall venovenous shunts which would make any of the above surgical procedures tracherous in this patient. In addition, the patient mental status is very poor most likely due to chronic alcohol abuse and / or to other unknown neurologic conditions (i.e. dementia) which could make futile any attempt at enteral eating because the latter would not improve his quality of life. I will sign off, please call me with questions.
[2019-07-21] MEDS: VANCOMYCIN HCL 1,000 MG in DEXTROSE 5%-WATER 250 ML IV SCH ×2 (03:54→11:00)
[2019-07-21] MEDS: INSULIN REG, HUMAN 100 UNIT/ML 3 ML VIAL (PYX) SUBCUT SCH ×3 (06:31→15:25)
[2019-07-21] MEDS: DILTIAZEM HCL 60 MG TABLET PO SCH ×2 (06:31→15:31)
--- NOTE | 2019-07-21 09:23 | PDOC PROGRESS REPORT ---
Subjective Progress Note for:: 07/21/19 Subjective:: ICU Progress Note. Pt more awake today. No acute overnight events. Reason For Visit: PNEUMONIA, AFIB WITH RVR Physical Exam Vital Signs: Temp Pulse Resp BP Pulse Ox 98.4 F 85 19 168/69 H 99 07/21/19 08:00 07/21/19 08:00 07/21/19 08:00 07/21/19 08:00 07/21/19 08:00 Intake & Output 07/20/19 07/21/19 07/22/19 06:59 06:59 06:59 Intake Total 1850 1390 Output Total 2055 860 Balance -205 530 Weight 111.4 kg 113.2 kg General appearance: PRESENT: no acute distress, well-developed, well-nourished Head exam: PRESENT: atraumatic, normocephalic Respiratory exam: PRESENT: decreased breath sounds, unlabored Cardiovascular exam: PRESENT: RRR GI/Abdominal exam: PRESENT: soft Gentrourinary exam: PRESENT: indwelling catheter Extremities exam: PRESENT: other - trace pre-tibial edema Results Laboratory Results: 07/20/19 03:24 07/20/19 07/21/19 03:24 08:25 Sodium 138.9 Potassium 3.8 Chloride 110 H Carbon Dioxide 22 Anion Gap 7 BUN 16 Creatinine 0.67 Est GFR ( Amer) > 60 Glucose 127 H Calcium 8.2 L Magnesium 1.9 07/18/19 16:30 Tracheal Aspirate Gram Stain - Final 07/18/19 16:30 Tracheal Aspirate Sputum Culture - Final GREATLY REDUCED NORMAL FRANK 07/10/19 07/11/19 07/11/19 18:11 00:37 00:37 Creatine Kinase 108 CK-MB (CK-2) 1.20 0.92 Troponin I < 0.012 < 0.012 NT-Pro-B Natriuret Pep 07/11/19 07/11/19 07/11/19 07:46 07:46 13:22 Creatine Kinase 98 92 CK-MB (CK-2) 1.11 Troponin I < 0.012 NT-Pro-B Natriuret Pep 07/11/19 07/12/19 13:22 15:55 Creatine Kinase CK-MB (CK-2) 1.02 Troponin I < 0.012 NT-Pro-B Natriuret Pep 2760 H Impressions: Head CT 07/10/19 17:56 IMPRESSION: NO ACUTE INTRACRANIAL FINDINGS. EVIDENCE OF ACUTE STROKE: NO. Chest CT 07/14/19 08:00 IMPRESSION: 1. Slightly improved pleural effusions bilaterally. Small effusions remain with associated volume loss in the lower lobes. 2. Stable to perhaps minimally improved pericardial fluid. 3. New focal ground-glass infiltrate in the left upper lobe. KUB X-Ray 07/15/19 10:34 IMPRESSION: Nasogastric tube tip and side port in the stomach Chest X-Ray 07/16/19 10:30 IMPRESSION: CARDIAC ENLARGEMENT. VASCULAR CONGESTION. Worse Assessment & Plan - Diagnosis (1) Atrial fibrillation with RVR Is this a current diagnosis for this admission?: Yes (2) Alcohol withdrawal delirium Is this a current diagnosis for this admission?: Yes (3) Esophageal varices Qualifiers: Esophageal varices type: unspecified type Esophageal varices bleeding: without bleeding Qualified Code(s): I85.00 - Esophageal varices without bleeding Is this a current diagnosis for this admission?: Yes (4) Aspiration pneumonia Qualifiers: Lung location: unspecified part of lung Is this a current diagnosis for this admission?: Yes - Plan Summary Plan Summary: Assessment: 78 yo man with aspiration PNA, afib with RVR, alcohol withdrawal and delirium, pericardial effusion, h/o esophageal varices Plan: 1. Respiratory: stable on 3 liters nasal cannula. Will wean to RA as tolerated 2. Pulmonary: aspiration PNA. ATBX Day 4 vanc and merropenem. 3. CV: afib, rate is controlled on lopressor and po cardizem. Pericardial effusion, asymptomatic. HTN, BP acceptable 4. Psych: ETOH withdrawal and delirum. Mental status continues to improve. Is awake today, but agitated at times. Will start seroquel 25 mg po qhs. 5. Nutrition: dysphagia. On tube feeds. Failed swallowing evaluation. Not candidate for PEG due to h/o gastric surgery and varices. Will ask speech to re- evaluate pt now since his mentation has improved 6. Heme: has been on therapeutic lovenox for afib. Lovenox has been stopped. Will start eliquis. 7. GI: h/o esophageal varices. No signs of bleeding 8. Stable for transfer out of ICU 9.Case management consulted for discharge planning as pt may need SNF.
[2019-07-21 09:43] LABS: ANION GAP 7 (5-19); BLOOD UREA NITROGEN 16 mg/dL (7-20); CALCIUM 8.5 mg/dL (8.4-10.2); CARBON DIOXIDE 22 mmol/L (22-30); CHLORIDE 110 mmol/L (98-107); GLUCOSE 131 mg/dL (75-110); POTASSIUM 3.4 mmol/L (3.6-5.0)
[2019-07-21] MEDS ORDERED: APIXABAN 5 MG TABLET NG SCH (10:00)
[2019-07-21] MEDS: MEROPENEM 1 GM in NORMAL SALINE 50 ML IV SCH ×2 (10:55→22:10)
[2019-07-21] MEDS: METOPROLOL TARTRATE 50 MG TABLET PO SCH (10:56)
[2019-07-21] MEDS: FOLIC ACID 1 MG TABLET NG SCH (10:56)
[2019-07-21] MEDS: THIAMINE HCL 100 MG TABLET NG SCH (10:56)
[2019-07-21] MEDS ORDERED: POTASSIUM CHLORIDE 20 MEQ PACKET PO ONE (15:00)
--- NOTE | 2019-07-21 16:01 | PDOC CONSULTATION ---
Consultation Consult Date: 07/21/19 Attending physician:: SCOTT CONDE Provider Consulted: NICHO MURRY Consult reason:: medical management History of Present Illness Admission Date/PCP: 07/10/19 21:42 Patient complains of: No complaints at this time History of Present Illness: MARISSA CORONA is a 78 year old male 78 year old male who presented to the emergency room with a 2-week history of weakness. Patient and his family admit that for the last 2 weeks he has suffered from episodic weakness which is been progressively worsening. Today his weakness was severe such that when it came on suddenly he clutched his chest and fell to the ground requiring assistance of another person to get back on his feet. He also reports a similar episode last evening. His episodic weakness has been accompanied by a decrease in his oral intake. He denies other associated or accompanying signs and symptoms. He denies prior similar episodes and has not identified any aggravating or ameliorating factors for his weakness. In the emergency room he was found to have atrial fibrillation with a rapid ventricular response, hypoxia, an elevated lactic acid as well as an elevated white blood count with a possible pneumonia. He was treated with IV antibiotics using Levaquin and was started on a diltiazem infusion after receiving a bolus dose. He was additionally given an intravenous dose of digoxin. He was subsequently admitted to [facility] for further evaluation and treatment. Past Medical History Cardiac Medical History: Denies: Atrial Fibrillation, Coronary Artery Disease, Myocardial Infarction, Hypertension Pulmonary Medical History: Denies: Asthma, Chronic Obstructive Pulmonary Disease (COPD), Respiratory Failure EENT Medical History: Denies: Cataracts, Ears - Hearing aids Neurological Medical History: Denies: Hemorrhagic CVA, Ischemic CVA, Seizures Endocrine Medical History: Denies: Diabetes Mellitus Type 1, Diabetes Mellitus Type 2, Hyperthyroidism, Hypothyroidism Renal/ Medical History: Denies: Chronic Kidney Disease, Nephrolithiasis Malignancy Medical History: Reports: None GI Medical History: Reports: Cirrhosis, Gastroesophageal Reflux Disease, Peptic Ulcer Disease, Other - History of upper GI bleed Denies: Crohn's Disease, Hepatitis, Ulcerative Colitis Musculoskeltal Medical History: Denies: Arthritis, Gout Skin Medical History: Denies: Eczema, Psoriasis Psychiatric Medical History: Reports: Alcohol Dependency Denies: Depression, Substance Abuse, Tobacco Dependency Traumatic Medical History: Reports: None Hematology: Denies: Anemia, Bleeding Tendencies Infectious Medical History: Reports: None Past Surgical History Past Surgical History: Reports: Other - Peptic ulcer surgery abdominal midline scar Social History Lives with: Spouse/Significant other Smoking Status: Former Smoker Electronic Cigarette use?: No Cigars Per Day: 1 Last Time Smoked: 1987 Frequency of Alcohol Use: Heavy - Patient evasive but admits to drinking heavily on a daily basis Hx Recreational Drug Use: No Drugs: None Hx Prescription Drug Abuse: No - Advance Directive Resuscitation Status: Full Code Family History Family History: Hypertension. denies: CAD, DM, Malignancy Parental Family History Reviewed: Yes - Unknown family history Children Family History Reviewed: Yes Sibling(s) Family History Reviewed.: Yes Medication/Allergy Home Medications: Gabapentin [Neurontin 300 mg Capsule] 600 mg PO TID 07/11/19 Allergies/Adverse Reactions: No Known Allergies Allergy (Unverified 12/23/16 05:45) Review of Systems ROS unobtainable: Due to mental status Constitutional: PRESENT: fever(s), headache(s), weakness Eyes: PRESENT: visual disturbances Ears: PRESENT: hearing changes Physical Exam Vital Signs: Temp Pulse Resp BP Pulse Ox 98.1 F 77 17 149/60 H 96 07/21/19 12:00 07/21/19 12:00 07/21/19 12:00 07/21/19 12:00 07/21/19 12:00 Intake & Output 07/20/19 07/21/19 07/22/19 06:59 06:59 06:59 Intake Total 1850 1690 Output Total 2055 860 200 Balance -205 830 -200 Weight 111.4 kg 113.2 kg General appearance: PRESENT: no acute distress, obese Head exam: PRESENT: atraumatic Eye exam: PRESENT: PERRLA Ear exam: PRESENT: normal external ear exam Mouth exam: PRESENT: neck supple Teeth exam: PRESENT: poor dentation Throat exam: PRESENT: other - NG tube in place getting the NG tube feeds Neck exam: ABSENT: carotid bruit, JVD, lymphadenopathy, thyromegaly Respiratory exam: PRESENT: decreased breath sounds Cardiovascular exam: PRESENT: RRR. ABSENT: diastolic murmur, rubs, systolic murmur GI/Abdominal exam: PRESENT: normal bowel sounds, soft. ABSENT: distended, guarding, mass, organolmegaly, rebound, tenderness Rectal exam: PRESENT: deferred Gentrourinary exam: PRESENT: indwelling catheter Neurological exam: PRESENT: alert, awake, CN II-XII grossly intact Psychiatric exam: PRESENT: anxious Results Laboratory Results: 07/20/19 03:24 07/21/19 08:25 07/21/19 07/21/19 08:25 08:25 Sodium 138.7 Potassium 3.4 L Chloride 110 H Carbon Dioxide 22 Anion Gap 7 BUN 16 Creatinine 0.68 Est GFR ( Amer) > 60 Glucose 131 H Calcium 8.5 Magnesium 1.9 07/10/19 07/11/19 07/11/19 18:11 00:37 00:37 Creatine Kinase 108 CK-MB (CK-2) 1.20 0.92 Troponin I < 0.012 < 0.012 NT-Pro-B Natriuret Pep 07/11/19 07/11/19 07/11/19 07:46 07:46 13:22 Creatine Kinase 98 92 CK-MB (CK-2) 1.11 Troponin I < 0.012 NT-Pro-B Natriuret Pep 07/11/19 07/12/19 13:22 15:55 Creatine Kinase CK-MB (CK-2) 1.02 Troponin I < 0.012 NT-Pro-B Natriuret Pep 2760 H Impressions: Head CT 07/10/19 17:56 IMPRESSION: NO ACUTE INTRACRANIAL FINDINGS. EVIDENCE OF ACUTE STROKE: NO. Chest CT 07/14/19 08:00 IMPRESSION: 1. Slightly improved pleural effusions bilaterally. Small effusions remain with associated volume loss in the lower lobes. 2. Stable to perhaps minimally improved pericardial fluid. 3. New focal ground-glass infiltrate in the left upper lobe. KUB X-Ray 07/15/19 10:34 IMPRESSION: Nasogastric tube tip and side port in the stomach Chest X-Ray 07/16/19 10:30 IMPRESSION: CARDIAC ENLARGEMENT. VASCULAR CONGESTION. Worse Assessment and Plan - Diagnosis (1) Alcohol withdrawal delirium Is this a current diagnosis for this admission?: Yes (2) Aspiration pneumonia Qualifiers: Lung location: unspecified part of lung Is this a current diagnosis for this admission?: Yes (3) Atrial fibrillation with RVR Is this a current diagnosis for this admission?: Yes (4) Pericardial effusion Is this a current diagnosis for this admission?: Yes (5) Esophageal varices Qualifiers: Esophageal varices type: unspecified type Esophageal varices bleeding: without bleeding Qualified Code(s): I85.00 - Esophageal varices without bleeding Is this a current diagnosis for this admission?: Yes - Plan Summary Summary: 1.atrial fibrillation with RVR Patient is in sinus rhythm heart rate is around 90s. On p.o. Cardizem. Plan is to continue the current management in the medical floor. He was started on Eliquis today. Cardiology consult was done during the hospital stay. 2.patient admitted with aspiration pneumonia presently on vancomycin and meropenem. Blood cultures and sputum cultures are negative so far. She is receiving NG tube feeds tomorrow is going for a barium swallow. Speech therapy saw the patient cleared for. Diet but we are going to do the barium swallow tomorrow until that time he is going to receive NG tube feeds. Is not a candidate for PEG placement because of the past history of gastric surgery and varices. 3.esophageal varices Patient with a history of esophageal varices no signs of bleeding. We are going to continue to closely monitor the CBC. 4.pericardial effusion Found to have a pericardial effusion in the echocardiogram. Patient is asymptomatic. Cardiology consult was done during this hospital stay. 5.patient has history of alcohol abuse. Started on Seroquel today mental status continues to improve. If awake alert still having difficulty in talking. Is going to receive PRN Ativan. Patient is to go to a long-term care facility. rodent control worker consult was placed. 6.hypokalemia Serum potassium is 3.4 receiving potassium supplementations. Plan to repeat the labs tomorrow.
[2019-07-21] MEDS ORDERED: ACETAMINOPHEN 650 MG SUPP.RECT PR PRN (21:12)
[2019-07-21] MEDS ORDERED: DEXTROSE 50%-WATER SYRINGE 12.5 GM/25 ML DOSE IV PRN (21:30)
[2019-07-21] MEDS ORDERED: GLUCAGON,HUMAN RECOMB 1 MG INJ IM PRN (21:30)
[2019-07-21] MEDS ORDERED: DEXTROSE 40% GEL 15 GM TUBE X 2 PO PRN (21:30)
[2019-07-21] MEDS ORDERED: DEXTROSE 50%-WATER SYRINGE 25 GM/50 ML DOSE IV PRN (21:30)
[2019-07-21] MEDS ORDERED: DEXTROSE 40% GEL 15 GM TUBE PO PRN (21:30)
[2019-07-21] MEDS ORDERED: QUETIAPINE FUMARATE 25 MG TABLET PO SCH (22:00)
[2019-07-21] MEDS: QUETIAPINE FUMARATE 25 MG TABLET NG SCH (22:11)
[2019-07-21] MEDS: DILTIAZEM HCL 60 MG TABLET NG SCH (22:11)
[2019-07-21] MEDS: APIXABAN 5 MG TABLET NG SCH (22:11)
[2019-07-21] MEDS: METOPROLOL TARTRATE 50 MG TABLET NG SCH (22:11)
[2019-07-22] MEDS: INSULIN REG, HUMAN 100 UNIT/ML 3 ML VIAL (PYX) SUBCUT SCH ×4 (03:53→18:27)
[2019-07-22] MEDS: VANCOMYCIN HCL 1,000 MG in DEXTROSE 5%-WATER 250 ML IV SCH ×3 (03:55→18:27)
[2019-07-22 06:18] LABS: ABSOLUTE BASOPHILS # (AUTO) 0.1 10^3/uL (0.0-0.2); ABSOLUTE EOSINOPHILS # (AUTO) 0.2 10^3/uL (0.0-0.6); ABSOLUTE LYMPHOCYTES (AUTO) 1.4 10^3/uL (0.5-4.7); ABSOLUTE NEUT (AUTO) 8.5 10^3/uL (1.7-8.2); EOSINOPHILS % (AUTO) 1.6 % (0-6); HEMATOCRIT 30.3 % (37.9-51.0); HEMOGLOBIN 10.1 g/dL (13.5-17.0); LYMPHOCYTES % (AUTO) 12.8 % (13-45); MEAN CORPUSCULAR HEMOGLOBIN 32.6 pg (27.0-33.4); MEAN CORPUSCULAR HGB CONC 33.5 g/dL (32.0-36.0); MEAN CORPUSCULAR VOLUME 97 fl (80-97); MONOCYTES % (AUTO) 8.9 % (3-13); PLATELET COUNT 225 10^3/uL (150-450); RED BLOOD COUNT 3.11 10^6/uL (4.35-5.55); RED CELL DISTRIBUTION WIDTH 13.3 % (11.5-14.0); SEGMENTED NEUTROPHILS % (AUTO) 75.7 % (42-78); TOTAL CELLS COUNTED % (AUTO) 100 %; WHITE BLOOD COUNT 11.2 10^3/uL (4.0-10.5)
[2019-07-22] MEDS: DILTIAZEM HCL 60 MG TABLET NG SCH ×3 (06:22→21:27)
--- NOTE | 2019-07-22 09:30 | PDOC PROGRESS REPORT ---
Subjective Progress Note for:: 07/22/19 Subjective:: 78 year old male 78 year old male who presented to the emergency room with a 2-week history of weakness. Patient and his family admit that for the last 2 weeks he has suffered from episodic weakness which is been progressively worsening. Today his weakness was severe such that when it came on suddenly he clutched his chest and fell to the ground requiring assistance of another person to get back on his feet. He also reports a similar episode last evening. His episodic weakness has been accompanied by a decrease in his oral intake. He denies other associat ed or accompanying signs and symptoms. He denies prior similar episodes and has not identified any aggravating or ameliorating factors for his weakness. In the emergency room he was found to have atrial fibrillation with a rapid ventricular response, hypoxia, an elevated lactic acid as well as an elevated white blood count with a possible pneumonia. He was treated with IV antibiotics using Leva ja and was started on a diltiazem infusion after receiving a bolus dose. He was additionally given an intravenous dose of digoxin. He was subsequently admitted to IM for further evaluation and treatment. 07/[id number]-old male admitted to ICU for 2 weeks history of weakness found to have aspiration pneumonia, A. fib RVR dysphagia acute on chronic respiratory failure with hypoxia and he was downgraded to medical floor with telemetry yesterday. He still have the NG tube with the NG tube feedings going for a barium swallow studies today. Speech therapy saw the patient yesterday recom mended. Diet. As per the checkering machine operator recommendations patient is going for barium swallow. No acute events in the last 24 hours. Afebrile. Reason For Visit: PNEUMONIA, AFIB WITH RVR Physical Exam Vital Signs: Temp Pulse Resp BP Pulse Ox 98.7 F 97 19 141/58 H 92 07/22/19 05:39 07/22/19 07:00 07/22/19 05:39 07/22/19 05:39 07/22/19 05:39 Intake & Output 07/21/19 07/22/19 07/23/19 06:59 06:59 06:59 Intake Total 1690 2485 Output Total 860 1600 Balance 830 885 Weight 113.2 kg 115.9 kg General appearance: PRESENT: no acute distress, obese Head exam: PRESENT: atraumatic Eye exam: PRESENT: PERRLA Mouth exam: PRESENT: moist, tongue midline Teeth exam: PRESENT: poor dentation Throat exam: PRESENT: other - NG tube is in place. Neck exam: ABSENT: carotid bruit, JVD, lymphadenopathy, thyromegaly Respiratory exam: PRESENT: decreased breath sounds Cardiovascular exam: PRESENT: RRR. ABSENT: diastolic murmur, rubs, systolic murmur GI/Abdominal exam: PRESENT: normal bowel sounds, soft. ABSENT: distended, guar ding, mass, organolmegaly, rebound, tenderness Rectal exam: PRESENT: deferred Extremities exam: PRESENT: full ROM. ABSENT: calf tenderness, clubbing, pedal edema Neurological exam: PRESENT: alert, awake, CN II-XII grossly intact Psychiatric exam: PRESENT: anxious Results Laboratory Results: 07/22/19 04:55 07/21/19 08:25 07/21/19 07/22/19 08:25 04:55 WBC 11.2 H RBC 3.11 L Hgb 10.1 L Hct 30.3 L MCV 97 MCH 32.6 MCHC 33.5 RDW 13.3 Plt Count 225 Seg Neutrophils % 75.7 Sodium 138.7 Potassium 3.4 L Chloride 110 H Carbon Dioxide 22 Anion Gap 7 BUN 16 Creatinine 0.68 Est GFR ( Amer) > 60 Glucose 131 H Calcium 8.5 07/10/19 07/11/19 07/11/19 18:11 00:37 00:37 Creatine Kinase 108 CK-MB (CK-2) 1.20 0.92 Troponin I < 0.012 < 0.012 NT-Pro-B Natriuret Pep 07/11/19 07/11/19 07/11/19 07:46 07:46 13:22 Creatine Kinase 98 92 CK-MB (CK-2) 1.11 Troponin I < 0.012 NT-Pro-B Natriuret Pep 07/11/19 07/12/19 13:22 15:55 Creatine Kinase CK-MB (CK-2) 1.02 Troponin I < 0.012 NT-Pro-B Natriuret Pep 2760 H Impressions: Head CT 07/10/19 17:56 IMPRESSION: NO ACUTE INTRACRANIAL FINDINGS. EVIDENCE OF ACUTE STROKE: NO. Chest CT 07/14/19 08:00 IMPRESSION: 1. Slightly improved pleural effusions bilaterally. Small effusions remain with associated volume loss in the lower lobes. 2. Stable to perhaps minimally improved pericardial fluid. 3. New focal ground-glass infiltrate in the left upper lobe. KUB X-Ray 07/15/19 10:34 IMPRESSION: Nasogastric tube tip and side port in the stomach Chest X-Ray 07/16/19 10:30 IMPRESSION: CARDIAC ENLARGEMENT. VASCULAR CONGESTION. Worse Assessment and Plan - Diagnosis (1) Alcohol withdrawal delirium Is this a current diagnosis for this admission?: Yes (2) Aspiration pneumonia Qualifiers: Lung location: unspecified part of lung Is this a current diagnosis for this admission?: Yes (3) Atrial fibrillation with RVR Is this a current diagnosis for this admission?: Yes (4) Pericardial effusion Is this a current diagnosis for this admission?: Yes (5) Esophageal varices Qualifiers: Esophageal varices type: unspecified type Esophageal varices bleeding: without bleeding Qualified Code(s): I85.00 - Esophageal varices without bleeding Is this a current diagnosis for this admission?: Yes - Plan Summary Summary: 1.atrial fibrillation with RVR Patient is in sinus rhythm heart rate is around 90s. On p.o. Cardizem. Plan is to continue the current management in the medical floor. He was started on Eliquis today. Cardiology consult was done during the hospital stay. 07/22/2019-patient's heart rate today is 89. plan is to continue p.o. Cardizem. 2.patient admitted with aspiration pneumonia presently on vancomycin and meropenem. Blood cultures and sputum cultures are negative so far. She is receiving NG tube feeds tomorrow is going for a barium swallow. Speech therapy saw the patient cleared for. Diet but we are going to do the barium sw allow tomorrow until that time he is going to receive NG tube feeds. Is not a candidate for PEG placement because of the past history of gastric surgery and varices. 07/22/2019-patient admitted with aspiration pneumonia present on IV vancomycin and meropenem blood culture and sputum cultures are negative so far. Patient still have the NG tube he is going for barium swallow studies today. Speech therapy on board. 3.esophageal varices Patient with a history of esophageal varices no signs of bleeding. We are going to continue to closely monitor the CBC. 07/22/2019-patient has a history of esophageal varices and also history of gastric surgery no evidence of bleeding. Patient's hemoglobin today is 10.1 stable. 4.pericardial effusion Found to have a pericardial effusion in the echocardiogram. Patient is asymptomatic. Cardiology consult was done during this hospital stay. 07/22/2019-patient found to have a small pericardial effusion on echocardiogram asymptomatic. Dr. Cowart is on board. 5.patient has history of alcohol abuse. Started on Seroquel today mental status continues to improve. If awake alert still having difficulty in talking. Is going to receive PRN Ativan. Patient is to go to a long-term care facility. direct service worker consult was placed. 07/22/2019-patient has history of alcohol abuse is getting IV Ativan PRN. Patient is to go to a rehab facility. direct service worker is on board. 6.hypokalemia Serum potassium is 3.4 receiving potassium supplementations. Plan to repeat the labs tomorrow. 07/22/2019-patient serum potassium today is 3.5. Plan is to continue potassium supplementations.
[2019-07-22] MEDS: APIXABAN 5 MG TABLET NG SCH ×2 (11:02→21:28)
[2019-07-22] MEDS: METOPROLOL TARTRATE 50 MG TABLET NG SCH ×2 (11:02→21:27)
[2019-07-22] MEDS: MEROPENEM 1 GM in NORMAL SALINE 50 ML IV SCH ×2 (11:02→21:27)
[2019-07-22] MEDS: THIAMINE HCL 100 MG TABLET NG SCH (11:02)
[2019-07-22] MEDS: FOLIC ACID 1 MG TABLET NG SCH (11:03)
[2019-07-22 13:19] LABS: ANION GAP 6 (5-19); BLOOD UREA NITROGEN 13 mg/dL (7-20); CALCIUM 8.6 mg/dL (8.4-10.2); CARBON DIOXIDE 24 mmol/L (22-30); CHLORIDE 108 mmol/L (98-107); GLUCOSE 173 mg/dL (75-110); POTASSIUM 3.8 mmol/L (3.6-5.0)
[2019-07-22] MEDS ORDERED: POTASSIUM CHLORIDE 20 MEQ/50 ML RTU IV SCH (15:00)
[2019-07-22] MEDS: POTASSI CL 20 MEQ/50 ML RIDER 20 MEQ/50 ML RTUPB IV SCH (18:45)
[2019-07-22] MEDS: QUETIAPINE FUMARATE 25 MG TABLET NG SCH (21:28)
[2019-07-23] MEDS: INSULIN REG, HUMAN 100 UNIT/ML 3 ML VIAL (PYX) SUBCUT SCH ×4 (00:20→18:21)
[2019-07-23] MEDS: VANCOMYCIN HCL 1,000 MG in DEXTROSE 5%-WATER 250 ML IV SCH ×3 (02:19→18:35)
[2019-07-23 05:02] LABS: ABSOLUTE BASOPHILS # (AUTO) 0.3 10^3/uL (0.0-0.2); ABSOLUTE EOSINOPHILS # (AUTO) 0.1 10^3/uL (0.0-0.6); ABSOLUTE LYMPHOCYTES (AUTO) 1.9 10^3/uL (0.5-4.7); ABSOLUTE MONOCYTES (AUTO) 1.6 10^3/uL (0.1-1.4); ABSOLUTE NEUT (AUTO) 14.7 10^3/uL (1.7-8.2); BASOPHILS % (AUTO) 1.4 % (0-2); EOSINOPHILS % (AUTO) 0.5 % (0-6); HEMATOCRIT 30.8 % (37.9-51.0); HEMOGLOBIN 10.2 g/dL (13.5-17.0); LYMPHOCYTES % (AUTO) 10.4 % (13-45); MEAN CORPUSCULAR HEMOGLOBIN 32.3 pg (27.0-33.4); MEAN CORPUSCULAR HGB CONC 33.1 g/dL (32.0-36.0); MEAN CORPUSCULAR VOLUME 98 fl (80-97); MONOCYTES % (AUTO) 8.5 % (3-13); PLATELET COUNT 230 10^3/uL (150-450); RED BLOOD COUNT 3.16 10^6/uL (4.35-5.55); RED CELL DISTRIBUTION WIDTH 13.6 % (11.5-14.0); SEGMENTED NEUTROPHILS % (AUTO) 79.2 % (42-78); TOTAL CELLS COUNTED % (AUTO) 100 %; WHITE BLOOD COUNT 18.5 10^3/uL (4.0-10.5)
[2019-07-23] MEDS: DILTIAZEM HCL 60 MG TABLET NG SCH ×3 (05:20→23:42)
[2019-07-23 09:19] LABS: ANION GAP 6 (5-19); BLOOD UREA NITROGEN 18 mg/dL (7-20); CALCIUM 8.9 mg/dL (8.4-10.2); CARBON DIOXIDE 25 mmol/L (22-30); CHLORIDE 107 mmol/L (98-107); GLUCOSE 220 mg/dL (75-110); POTASSIUM 3.9 mmol/L (3.6-5.0)
[2019-07-23 09:52] LABS: ARTERIAL BLOOD BASE EXCESS 1.6 mmol/L; ARTERIAL BLOOD H2CO3 1.02 mmol/L (1.05-1.35); ARTERIAL BLOOD HCO3 24.8 mmol/L (20-24); ARTERIAL BLOOD PH 7.48 (7.35-7.45); ARTERIAL BLOOD PO2 51.1 mmHg (80-100); ARTERIAL BLOOD TOTAL CO2 25.8 mmol/L (23-27)
--- NOTE | 2019-07-23 09:52 | RADIOLOGY REPORT (SQ) ---
EXAM DESCRIPTION: CHEST SINGLE VIEW COMPLETED DATE/TIME: 07/23/2019 9:09 am REASON FOR STUDY: pneumonia COMPARISON: None. NUMBER OF VIEWS: One view. TECHNIQUE: Single frontal radiographic view of the chest acquired. LIMITATIONS: None. FINDINGS: LUNGS AND PLEURA: Scattered basilar atelectasis. Small pleural effusions. MEDIASTINUM AND HILAR STRUCTURES: No masses or contour abnormality. HEART AND VASCULATURE: Cardiac enlargement. Vascular congestion. BONES: No acute findings. HARDWARE: Nasogastric tube. OTHER: No other significant finding. IMPRESSION: NO SIGNIFICANT INTERVAL CHANGE. CARDIOMEGALY WITH MILD VASCULAR CONGESTION, BASILAR ATE LECTASIS, AND SMALL PLEURAL EFFUSIONS. TECHNICAL DOCUMENTATION: JOB ID: [id number] [employer]- All Rights Reserved Reading location - IP/workstation name: [email or web address]
[2019-07-23 09:53] LABS: ARTERIAL BLOOD FIO2 2L
[2019-07-23] MEDS: MEROPENEM 1 GM in NORMAL SALINE 50 ML IV SCH (10:10)
[2019-07-23] MEDS: APIXABAN 5 MG TABLET NG SCH ×2 (11:01→23:41)
[2019-07-23] MEDS: FOLIC ACID 1 MG TABLET NG SCH (11:01)
[2019-07-23] MEDS: THIAMINE HCL 100 MG TABLET NG SCH (11:02)
[2019-07-23] MEDS: METOPROLOL TARTRATE 50 MG TABLET NG SCH ×2 (11:02→23:41)
--- NOTE | 2019-07-23 11:57 | PDOC PROGRESS REPORT ---
Subjective Progress Note for:: 07/19/19 Subjective:: 78 year old male 78 year old male who presented to the emergency room with a 2-week history of weakness. Patient and his family admit that for the last 2 weeks he has suffered from episodic weakness which is been progressively worsening. Today his weakness was severe such that when it came on suddenly he clutched his chest and fell to the ground requiring assistance of another person to get back on his feet. He also reports a similar episode last evening. His episodic weakness has been accompanied by a decrease in his oral intake. He denies other associat ed or accompanying signs and symptoms. He denies prior similar episodes and has not identified any aggravating or ameliorating factors for his weakness. In the emergency room he was found to have atrial fibrillation with a rapid ventricular response, hypoxia, an elevated lactic acid as well as an elevated white blood count with a possible pneumonia. He was treated with IV antibiotics using Leva ja and was started on a diltiazem infusion after receiving a bolus dose. He was additionally given an intravenous dose of digoxin. He was subsequently admitted to [facility] for further evaluation and treatment. 07/[id number]-urtn-old male admitted to ICU for 2 weeks history of weakness found to have aspiration pneumonia, A. fib RVR dysphagia acute on chronic respiratory failure with hypoxia and he was downgraded to medical floor with telemetry yesterday. He still have the NG tube with the NG tube feedings going for a barium swallow studies today. Speech therapy saw the patient yesterday recom mended. Diet. As per the wire photo operator recommendations patient is going for barium swallow. No acute events in the last 24 hours. Afebrile. 07/[id number]-old male with multiple medical problems admitted to ICU then transferred to medical floor yesterday with telemetry he has history of alcohol abuse, aspiration pneumonia, with NG tube feedings, atrial fibrillation RVR on telemetry. With p.o. Cardizem. Since yesterday patient is more and more lethargic less responsive the physical condition is the same last night and early this morning. I am concerned about his condition I spoke to Dr. Duran wire photo operator recommendation is to do the ammonia level, ABG, CT head without contrast. CT head report is pending ABG shows PCO2 of 34 but PCO2 51. pH of 7.48. Ammonia level is 12.1. Bishnu CT head report is available I am going to talk to the ICU attending for further recommendations. My opinion he need to go to at least to IMCU. Reason For Visit: PNEUMONIA, AFIB WITH RVR Physical Exam Vital Signs: Temp Pulse Resp BP Pulse Ox 99.2 F 93 23 H 141/76 H 94 07/23/19 03:22 07/23/19 07:00 07/23/19 03:22 07/23/19 03:22 07/23/19 03:22 Intake & Output 07/22/19 07/23/19 07/24/19 06:59 06:59 06:59 Intake Total 2485 2388 50 Output Total 1600 350 Balance 885 2038 50 Weight 115.9 kg 114.5 kg General appearance: PRESENT: no acute distress, obese, other - Drowsy less responsive. Head exam: PRESENT: atraumatic Eye exam: PRESENT: PERRLA Mouth exam: PRESENT: moist, tongue midline Teeth exam: PRESENT: poor dentation Respiratory exam: PRESENT: decreased breath sounds Cardiovascular exam: PRESENT: irregular rhythm GI/Abdominal exam: PRESENT: normal bowel sounds, soft. ABSENT: distended, guarding, mass, organolmegaly, rebound, tenderness Rectal exam: PRESENT: deferred Extremities exam: PRESENT: full ROM. ABSENT: calf tenderness, clubbing, pedal edema Neurological exam: PRESENT: altered, other - Patient is lethargic less responsive opening his eyes for sternal rub and drifting back to sleep. Results Laboratory Results: 07/23/19 04:14 07/23/19 04:14 07/22/19 07/23/19 07/23/19 04:55 04:14 04:14 WBC 18.5 H RBC 3.16 L Hgb 10.2 L Hct 30.8 L MCV 98 H MCH 32.3 MCHC 33.1 RDW 13.6 Plt Count 230 Seg Neutrophils % 79.2 H Carbonic Acid HCO3/H2CO3 Ratio ABG pH ABG pCO2 ABG pO2 ABG HCO3 ABG O2 Saturation ABG Base Excess FiO2 Sodium 138.1 137.6 Potassium 3.8 3.9 Chloride 108 H 107 Carbon Dioxide 24 25 Anion Gap 6 6 BUN 13 18 Creatinine 0.66 1.08 Est GFR ( Amer) > 60 > 60 Glucose 173 H 220 H Calcium 8.6 8.9 Ammonia 07/23/19 07/23/19 09:40 10:10 WBC RBC Hgb Hct MCV MCH MCHC RDW Plt Count Seg Neutrophils % Carbonic Acid 1.02 L HCO3/H2CO3 Ratio 24:1 ABG pH 7.48 H ABG pCO2 34.0 L ABG pO2 51.1 L ABG HCO3 24.8 H ABG O2 Saturation 89.0 L ABG Base Excess 1.6 FiO2 2L Sodium Potassium Chloride Carbon Dioxide Anion Gap BUN Creatinine Est GFR ( Amer) Glucose Calcium Ammonia 12.1 07/18/19 10:19 Blood Blood Culture - Final NO GROWTH IN 5 DAYS 07/18/19 09:26 Blood Blood Culture - Final NO GROWTH IN 5 DAYS 07/10/19 07/11/19 07/11/19 18:11 00:37 00:37 Creatine Kinase 108 CK-MB (CK-2) 1.20 0.92 Troponin I < 0.012 < 0.012 NT-Pro-B Natriuret Pep 07/11/19 07/11/19 07/11/19 07:46 07:46 13:22 Creatine Kinase 98 92 CK-MB (CK-2) 1.11 Troponin I < 0.012 NT-Pro-B Natriuret Pep 07/11/19 07/12/19 13:22 15:55 Creatine Kinase CK-MB (CK-2) 1.02 Troponin I < 0.012 NT-Pro-B Natriuret Pep 2760 H Impressions: Chest CT 07/14/19 08:00 IMPRESSION: 1. Slightly improved pleural effusions bilaterally. Small effusions remain with associated volume loss in the lower lobes. 2. Stable to perhaps minimally improved pericardial fluid. 3. New focal ground-glass infiltrate in the left upper lobe. KUB X-Ray 07/15/19 10:34 IMPRESSION: Nasogastric tube tip and side port in the stomach Chest X-Ray 07/23/19 00:00 IMPRESSION: NO SIGNIFICANT INTERVAL CHANGE. CARDIOMEGALY WITH MILD VASCULAR CONGESTION, BASILAR ATELECTASIS, AND SMALL PLEURAL EFFUSIONS. Assessment and Plan - Diagnosis (1) Alcohol withdrawal delirium Is this a current diagnosis for this admission?: Yes (2) Aspiration pneumonia Qualifiers: Lung location: unspecified part of lung Is this a current diagnosis for this admission?: Yes (3) Atrial fibrillation with RVR Is this a current diagnosis for this admission?: Yes (4) Pericardial effusion Is this a current diagnosis for this admission?: Yes (5) Esophageal varices Qualifiers: Esophageal varices type: unspecified type Esophageal varices bleeding: without bleeding Qualified Code(s): I85.00 - Esophageal varices without bleeding Is this a current diagnosis for this admission?: Yes - Plan Summary Summary: 1.atrial fibrillation with RVR Patient is in sinus rhythm heart rate is around 90s. On p.o. Cardizem. Plan is to continue the current management in the medical floor. He was started on Eliquis today. Cardiology consult was done during the hospital stay. 07/22/2019-patient's heart rate today is 89. plan is to continue p.o. Cardizem. 07/23/2019-patient's heart rate today is 93. Still in atrial fibrillation. Rate controlled with p.o. Cardizem. 2.patient admitted with aspiration pneumonia presently on vancomycin and meropenem. Blood cultures and sputum cultures are negative so far. She is receiving NG tube feeds tomorrow is going for a barium swallow. Speech therapy saw the patient cleared for. Diet but we are going to do the barium swallow tomorrow until that time he is going to receive NG tube feeds. Is not a candidate for PEG placement because of the past history of gastric surgery and varices. 07/22/2019-patient admitted with aspiration pneumonia present on IV vancomycin and meropenem blood culture and sputum cultures are negative so far. Patient still have the NG tube he is going for barium swallow studies today. Speech therapy on board. 07/23/2019-patient admitted with aspiration pneumonia, on IV vancomycin and meropenem. Blood cultures and sputum cultures negative so far. Chest x-ray unchanged from the previous x-rays. WBC went up to 18,000. Low-grade fever of 99.2 today. More lethargic more somnolent from yesterday. 3.esophageal varices Patient with a history of esophageal varices no signs of bleeding. We are going to continue to closely monitor the CBC. 07/22/2019-patient has a history of esophageal varices and also history of gastric surgery no evidence of bleeding. Patient's hemoglobin today is 10.1 stable. 4.pericardial effusion Found to have a pericardial effusion in the echocardiogram. Patient is asymptomatic. Cardiology consult was done during this hospital stay. 07/22/2019-patient found to have a small pericardial effusion on echocardiogram asymptomatic. Dr. Cowart is on board. 5.patient has history of alcohol abuse. Started on Seroquel today mental status continues to improve. If awake alert still having difficulty in talking. Is going to receive PRN Ativan. Patient is to go to a long-term care facility. call worker person consult was placed. 07/22/2019-patient has history of alcohol abuse is getting IV Ativan PRN. Patient is to go to a rehab facility. call worker person is on board. 07/23/2019-patient has history of alcohol abuse. He is on IV Ativan PRN. Since last night he did not receive any Seroquel or Ativan. Patient is more current more lethargic more somnolent compared to yesterday. 6.hypokalemia Serum potassium is 3.4 receiving potassium supplementations. Plan to repeat the labs tomorrow. 07/22/2019-patient serum potassium today is 3.5. Plan is to continue potassium supplementations.
--- NOTE | 2019-07-23 12:15 | RADIOLOGY REPORT (SQ) ---
EXAM DESCRIPTION: CT HEAD WITHOUT COMPLETED DATE/TIME: 07/23/2019 11:56 am REASON FOR STUDY: altered mental status COMPARISON: 07/10/2019. TECHNIQUE: Axial images acquired through the brain without intravenous contrast. Images reviewed wi th bone, brain and subdural windows. Additional sagittal and coronal reconstructions were generated. Images stored on PACS. All CT scanners at this facility use dose modulation, iterative reconstruction, and/or weight based d osing when appropriate to reduce radiation dose to as low as reasonably achievable (ALARA). [facility]: Dose Right [facility]: CareDose [facility]: Dose Right [facility]: Teradose 4D [facility]: Smart Gecko TV RADIATION DOSE: CT Rad equipment meets quality standard of care and radiation dose reduction techniq ues were employed. CTDIvol: 53.2 mGy. DLP: 991 mGy-cm. mGy. LIMITATIONS: None. FINDINGS: VENTRICLES: Prominent. CEREBRUM: No masses. No hemorrhage. No midline shift. Areas of low density in the white matter mos t likely due to chronic micro-vascular ischemic change. No evidence for acute infarction. CEREBELLUM: No masses. No hemorrhage. No alteration of density. No evidence for acute infarction. EXTRAAXIAL SPACES: Mild age-related involutional change. No fluid collections. No masses. ORBITS AND GLOBE: No intra- or extraconal masses. Normal contour of globe without masses. CALVARIUM: No fracture. PARANASAL SINUSES: Mucous membrane thickening in the right ethmoid and maxillary sinuses. SOFT TISSUES: No mass or hematoma. OTHER: No other significant finding. IMPRESSION: MILD CHRONIC CHANGES OF ATROPHY AND MICROVASCULAR ISCHEMIA. NO ACUTE PROCESS. EVIDENCE OF ACUTE STROKE: NO. TECHNICAL DOCUMENTATION: JOB ID: [id number] Quality ID # [id number]: Final reports with documentation of one or more dose reduction techniques (e.g., Au tomated exposure control, adjustment of the mA and/or kV according to patient size, use of iterative reconstruction technique) 2010 [employer]- All Rights Reserved Reading location - IP/workstation name: [email or web address]
[2019-07-23] MEDS ORDERED: PROPOFOL 1,000 MG/100 ML INFUS..BTL IV ONE (19:48)
--- NOTE | 2019-07-23 19:49 | Progress Note ---
Provider Note Provider Note: Critical care: 07/23/2019 Critical care start time: 19:31 Critical care issue: Respiratory distress and hypoxia Patient was noted by nursing staff to have very labored breathing and to be hypoxic and poorly responsive. A rapid response was called and I evaluated the patient to find him with severely labored breathing extensively using all accessory muscles of respiration. His O2 sat was noted to be in the 70s and low 80s. On examination he was noted to have a very prolonged expiratory phase and very shallow depth of breath with markedly decreased breath sounds throughout all becerril and very faint end expiratory wheezing. The patient was very poorly responsive even to painful stimuli. He was treated with BiPAP at 30% oxygen with pressures of 16/8 and an O2 sat of 94 to 95% was attained. The patient continued to be poorly responsive and as such was transferred to the intensive care unit. Transfer orders were prepared and the resident associate was notified. Critical care end time: 20:05 Total critical care time: 21 minutes
--- NOTE | 2019-07-23 21:08 | PDOC PROGRESS REPORT ---
Subjective Progress Note for:: 07/23/19 Subjective:: Rapid response called while pt in IMCU for obtundation and hypoxia. Pt placed on bipap and transferred to ICU. Upon my assessment, he is on bipap and only responsive to sternal rub. Reason For Visit: PNEUMONIA, AFIB WITH RVR Physical Exam Vital Signs: Temp Pulse Resp BP Pulse Ox 98.2 F 105 H 27 H 164/51 H 94 07/23/19 11:13 07/23/19 11:13 07/23/19 20:34 07/23/19 11:13 07/23/19 20:34 Intake & Output 07/22/19 07/23/19 07/24/19 06:59 06:59 06:59 Intake Total 2485 2388 300 Output Total 1600 350 250 Balance 885 2038 50 Weight 115.9 kg 114.5 kg General appearance: PRESENT: no acute distress, well-developed, well-nourished, other - obtunded on bipap Head exam: PRESENT: atraumatic, normocephalic Respiratory exam: PRESENT: decreased breath sounds - on bipap, unlabored Cardiovascular exam: PRESENT: RRR GI/Abdominal exam: PRESENT: soft Extremities exam: PRESENT: other - no edema Neurological exam: PRESENT: other - obtunded Results Laboratory Results: 07/23/19 04:14 07/23/19 04:14 07/23/19 07/23/19 07/23/19 04:14 04:14 09:40 WBC 18.5 H RBC 3.16 L Hgb 10.2 L Hct 30.8 L MCV 98 H MCH 32.3 MCHC 33.1 RDW 13.6 Plt Count 230 Seg Neutrophils % 79.2 H Carbonic Acid 1.02 L HCO3/H2CO3 Ratio 24:1 ABG pH 7.48 H ABG pCO2 34.0 L ABG pO2 51.1 L ABG HCO3 24.8 H ABG O2 Saturation 89.0 L ABG Base Excess 1.6 FiO2 2L Sodium 137.6 Potassium 3.9 Chloride 107 Carbon Dioxide 25 Anion Gap 6 BUN 18 Creatinine 1.08 Est GFR ( Amer) > 60 Glucose 220 H Calcium 8.9 Ammonia 07/23/19 10:10 WBC RBC Hgb Hct MCV MCH MCHC RDW Plt Count Seg Neutrophils % Carbonic Acid HCO3/H2CO3 Ratio ABG pH ABG pCO2 ABG pO2 ABG HCO3 ABG O2 Saturation ABG Base Excess FiO2 Sodium Potassium Chloride Carbon Dioxide Anion Gap BUN Creatinine Est GFR ( Amer) Glucose Calcium Ammonia 12.1 07/18/19 10:19 Blood Blood Culture - Final NO GROWTH IN 5 DAYS 07/18/19 09:26 Blood Blood Culture - Final NO GROWTH IN 5 DAYS 07/10/19 07/11/19 07/11/19 18:11 00:37 00:37 Creatine Kinase 108 CK-MB (CK-2) 1.20 0.92 Troponin I < 0.012 < 0.012 NT-Pro-B Natriuret Pep 07/11/19 07/11/19 07/11/19 07:46 07:46 13:22 Creatine Kinase 98 92 CK-MB (CK-2) 1.11 Troponin I < 0.012 NT-Pro-B Natriuret Pep 07/11/19 07/12/19 13:22 15:55 Creatine Kinase CK-MB (CK-2) 1.02 Troponin I < 0.012 NT-Pro-B Natriuret Pep 2760 H Impressions: Chest CT 07/14/19 08:00 IMPRESSION: 1. Slightly improved pleural effusions bilaterally. Small effusions remain with associated volume loss in the lower lobes. 2. Stable to perhaps minimally improved pericardial fluid. 3. New focal ground-glass infiltrate in the left upper lobe. KUB X-Ray 07/15/19 10:34 IMPRESSION: Nasogastric tube tip and side port in the stomach Chest X-Ray 07/23/19 00:00 IMPRESSION: NO SIGNIFICANT INTERVAL CHANGE. CARDIOMEGALY WITH MILD VASCULAR CONGESTION, BASILAR ATELECTASIS, AND SMALL PLEURAL EFFUSIONS. Head CT 07/23/19 00:00 IMPRESSION: MILD CHRONIC CHANGES OF ATROPHY AND MICROVASCULAR ISCHEMIA. NO ACUTE PROCESS. EVIDENCE OF ACUTE STROKE: NO. Assessment & Plan - Diagnosis (1) Atrial fibrillation with RVR Is this a current diagnosis for this admission?: Yes (2) Alcohol withdrawal delirium Is this a current diagnosis for this admission?: Yes (3) Esophageal varices Qualifiers: Esophageal varices type: unspecified type Esophageal varices bleeding: without bleeding Qualified Code(s): I85.00 - Esophageal varices without bleedi ng Is this a current diagnosis for this admission?: Yes (4) Aspiration pneumonia Qualifiers: Lung location: unspecified part of lung Is this a current diagnosis for this admission?: Yes (5) Encephalopathy Is this a current diagnosis for this admission?: Yes (6) Acute respiratory failure with hypoxia Is this a current diagnosis for this admission?: Yes - Time Time Spent with patient: 35 or more minutes Total Critical Time (Minutes): 50 Medications reviewed and adjusted accordingly: Yes Anticipated discharge: Hospice Within: within 48 hours Provider Note Provider Note: Assessment: 78 yo man with acute respiratory failure, chronic aspiration, aspiration PNA, afib with RVR, alcohol withdrawal and delirium, pericardial effusion, h/o esophageal varices Plan: 1. Respiratory: acute hypoxic respiratory failure. On bipap. Family has made pt DNR/DNI 2. Pulmonary: aspiration PNA. ATBX Day 5 vanc and merropenem. 3. CV: afib, rate is controlled on lopressor and po cardizem. Pericardial effusion, asymptomatic. HTN, BP acceptable 4. Psych: metabolic encephalopathy. ETOH abuse 5. ID: severe sepis, aspiration PNA. White count has increased to 18. Day 5 ATBX. Continue vanc and meropenem. 5. Nutrition: dysphagia, chronic aspiration. On tube feeds. Failed swallowing evaluation. Not candidate for PEG due to h/o gastric surgery and varices. 6. Heme: on eliquis for afib 7. GI: h/o esophageal varices. No signs of bleeding 8. Ethics. Spoke with at the bedside about pt's condition. Explained that pt has respiratory failure due to worsening PNA from chronic aspiration. Explained that pt is not a candidate for a PEG tube due to prior gastric surgery and esophageal varices. Told her that intubating the pt will not fix the undelying condition of recurrent aspiration. She states that pt has stated that he never want to be on life-support and would not want to be intubated. She has spoken with his children and they have agreed to DNR/DNI and palliative care. Critical care time=50 min, excluding procedures
--- NOTE | 2019-07-23 21:49 | RADIOLOGY REPORT (SQ) ---
EXAM DESCRIPTION: CLINICAL HISTORY: 78 years Male, resp failure COMPARISON: CT chest 07/12/2019. FINDINGS: Enteric tube in the abdomen. Prominent enlargement of the cardiac silhouette. CT from 07/12/2019 demonstrated a large pericardial effusion and nonenlarged cardiac chambers. This is probably unchanged. Bilateral atelectasis and effusions. Greater on the left and unchanged on the left. Appears improved on the right.
[2019-07-23 21:55] LABS: ARTERIAL BLOOD BASE EXCESS 0.4 mmol/L; ARTERIAL BLOOD FIO2 30%; ARTERIAL BLOOD H2CO3 0.98 mmol/L (1.05-1.35); ARTERIAL BLOOD HCO3 23.5 mmol/L (20-24); ARTERIAL BLOOD O2 SATURATION 94.8 % (94-98); ARTERIAL BLOOD PCO2 32.6 mmHg (35-45); ARTERIAL BLOOD PH 7.48 (7.35-7.45); ARTERIAL BLOOD PO2 67.7 mmHg (80-100); ARTERIAL BLOOD TOTAL CO2 24.5 mmol/L (23-27)
--- NOTE | 2019-07-23 22:22 | ADVANCED CARE ---
- Diagnosis (1) Atrial fibrillation with RVR Diagnosis Current: Yes (2) Left lower lobe pneumonia Diagnosis Current: Yes (3) Acute respiratory failure with hypoxia Diagnosis Current: Yes (4) Hyponatremia Diagnosis Current: Yes (5) Alcohol dependence Diagnosis Current: Yes Attendance: Family members spoke with Dr. Briggs Resuscitation Status: Do Not Resuscitate Discussion: Family has requested that the patient be made DNR/DNI after discussion of the patient's status and prognosis with Dr. Briggs. They intend to seek palliative care. I have been asked to confirm that I agree that DNR/DNI status for this patient is appropriate. I do fully concur with Dr. Briggs's assessment and the family's wishes. Care Planning Goals: DNR/DNI Document(s) Completed: DNR/DNI orders are placed on the chart per Dr. Briggs Time Spent: 4 minutes
[2019-07-24] MEDS: VANCOMYCIN HCL 1,000 MG in DEXTROSE 5%-WATER 250 ML IV SCH ×2 (03:06→10:23)
[2019-07-24] MEDS: INSULIN REG, HUMAN 100 UNIT/ML 3 ML VIAL (PYX) SUBCUT SCH ×3 (06:27→14:03)
[2019-07-24] MEDS: DILTIAZEM HCL 60 MG TABLET NG SCH ×2 (06:35→13:59)
[2019-07-24 06:38] LABS: HEMATOCRIT 33.5 % (37.9-51.0); MEAN CORPUSCULAR HEMOGLOBIN 32.3 pg (27.0-33.4); MEAN CORPUSCULAR HGB CONC 32.9 g/dL (32.0-36.0); MEAN CORPUSCULAR VOLUME 98 fl (80-97); PLATELET COUNT 217 10^3/uL (150-450); RED BLOOD COUNT 3.42 10^6/uL (4.35-5.55); RED CELL DISTRIBUTION WIDTH 13.7 % (11.5-14.0); WHITE BLOOD COUNT 21.1 10^3/uL (4.0-10.5)
[2019-07-24 06:57] LABS: ANION GAP 5 (5-19); BLOOD UREA NITROGEN 25 mg/dL (7-20); CALCIUM 8.8 mg/dL (8.4-10.2); CARBON DIOXIDE 29 mmol/L (22-30); CHLORIDE 107 mmol/L (98-107); GLUCOSE 166 mg/dL (75-110); POTASSIUM 4.3 mmol/L (3.6-5.0)
[2019-07-24 07:42] LABS: ABSOLUTE LYMPHOCYTES# (MANUAL) 1.9 10^3/uL (0.5-4.7); ABSOLUTE MONOCYTES # (MANUAL) 0.8 10^3/uL (0.1-1.4); BAND NEUTROPHILS % (MANUAL) 1 % (3-5); BASOPHILS % (MANUAL) 0 % (0-2); EOSINOPHILS % (MANUAL) 0 % (0-6); LYMPHOCYTES % (MANUAL) 9 % (13-45); MONOCYTES % (MANUAL) 4 % (3-13); SEGMENTED NEUTROPHILS % (MAN) 86 % (42-78); TOTAL CELLS COUNTED 100
[2019-07-24 07:44] LABS: PLATELET COMMENT ADEQUATE
--- NOTE | 2019-07-24 08:58 | PDOC PROGRESS REPORT ---
Subjective Progress Note for:: 07/24/19 Subjective:: ICU Progress Note. Pt remained on bipap overnight. Still unresponsive. Reason For Visit: PNEUMONIA, AFIB WITH RVR Physical Exam Vital Signs: Temp Pulse Resp BP Pulse Ox 98.5 F 82 19 127/52 H 93 07/24/19 07:53 07/24/19 07:53 07/24/19 07:53 07/24/19 07:53 07/24/19 07:53 Intake & Output 07/23/19 07/24/19 07/25/19 06:59 06:59 06:59 Intake Total 2388 800 Output Total 350 925 60 Balance 2038 -125 -60 Weight 114.5 kg 116.3 kg General appearance: PRESENT: no acute distress, well-nourished, other - unresponsive Respiratory exam: PRESENT: decreased breath sounds, unlabored Cardiovascular exam: PRESENT: RRR GI/Abdominal exam: PRESENT: soft Gentrourinary exam: PRESENT: indwelling catheter Extremities exam: PRESENT: other - edema Neurological exam: PRESENT: other - unresponsive Results Laboratory Results: 07/24/19 06:27 07/24/19 06:27 07/23/19 07/23/19 07/23/19 04:14 09:40 10:10 WBC RBC Hgb Hct MCV MCH MCHC RDW Plt Count Seg Neutrophils % Carbonic Acid 1.02 L HCO3/H2CO3 Ratio 24:1 ABG pH 7.48 H ABG pCO2 34.0 L ABG pO2 51.1 L ABG HCO3 24.8 H ABG O2 Saturation 89.0 L ABG Base Excess 1.6 FiO2 2L Sodium 137.6 Potassium 3.9 Chloride 107 Carbon Dioxide 25 Anion Gap 6 BUN 18 Creatinine 1.08 Est GFR ( Amer) > 60 Glucose 220 H Calcium 8.9 Ammonia 12.1 07/23/19 07/24/19 07/24/19 20:54 06:27 06:27 WBC 21.1 H RBC 3.42 L Hgb 11.0 L Hct 33.5 L MCV 98 H MCH 32.3 MCHC 32.9 RDW 13.7 Plt Count 217 Seg Neutrophils % Not Reportable Carbonic Acid 0.98 L HCO3/H2CO3 Ratio 23:1 ABG pH 7.48 H ABG pCO2 32.6 L ABG pO2 67.7 L ABG HCO3 23.5 ABG O2 Saturation 94.8 ABG Base Excess 0.4 FiO2 30% Sodium 140.7 Potassium 4.3 Chloride 107 Carbon Dioxide 29 Anion Gap 5 BUN 25 H Creatinine 1.48 H Est GFR ( Amer) 56 L Glucose 166 H Calcium 8.8 Ammonia 07/18/19 10:19 Blood Blood Culture - Final NO GROWTH IN 5 DAYS 07/18/19 09:26 Blood Blood Culture - Final NO GROWTH IN 5 DAYS 07/10/19 07/11/19 07/11/19 18:11 00:37 00:37 Creatine Kinase 108 CK-MB (CK-2) 1.20 0.92 Troponin I < 0.012 < 0.012 NT-Pro-B Natriuret Pep 07/11/19 07/11/19 07/11/19 07:46 07:46 13:22 Creatine Kinase 98 92 CK-MB (CK-2) 1.11 Troponin I < 0.012 NT-Pro-B Natriuret Pep 07/11/19 07/12/19 13:22 15:55 Creatine Kinase CK-MB (CK-2) 1.02 Troponin I < 0.012 NT-Pro-B Natriuret Pep 2760 H Impressions: Chest CT 07/14/19 08:00 IMPRESSION: 1. Slightly improved pleural effusions bilaterally. Small effusions remain with associated volume loss in the lower lobes. 2. Stable to perhaps minimally improved pericardial fluid. 3. New focal ground-glass infiltrate in the left upper lobe. KUB X-Ray 07/15/19 10:34 IMPRESSION: Nasogastric tube tip and side port in the stomach Head CT 07/23/19 00:00 IMPRESSION: MILD CHRONIC CHANGES OF ATROPHY AND MICROVASCULAR ISCHEMIA. NO ACUTE PROCESS. EVIDENCE OF ACUTE STROKE: NO. Assessment & Plan - Diagnosis (1) Atrial fibrillation with RVR Is this a current diagnosis for this admission?: Yes (2) Alcohol withdrawal delirium Is this a current diagnosis for this admission?: Yes (3) Esophageal varices Qualifiers: Esophageal varices type: unspecified type Esophageal varices bleeding: without bleeding Qualified Code(s): I85.00 - Esophageal varices without bleeding Is this a current diagnosis for this admission?: Yes (4) Aspiration pneumonia Qualifiers: Lung location: unspecified part of lung Is this a current diagnosis for this admission?: Yes (5) Encephalopathy Is this a current diagnosis for this admission?: Yes (6) Acute respiratory failure with hypoxia Is this a current diagnosis for this admission?: Yes - Time Time Spent with patient: 25-34 minutes - Plan Summary Plan Summary: Assessment: 78 yo man with acute respiratory failure, chronic aspiration, aspiration PNA, afib with RVR, alcohol withdrawal and delirium, pericardial ef fusion, h/o esophageal varices Plan: 1. Respiratory: acute hypoxic respiratory failure. Family has made pt DNR/DNI. Will d/c bipap 2. Pulmonary: aspiration PNA. ATBX Day 6 vanc and merropenem. 3. CV: afib, rate is controlled on lopressor and po cardizem. Pericardial effusion, asymptomatic. HTN, BP acceptable 4. Psych: metabolic encephalopathy. ETOH abuse 5. ID: severe sepis, aspiration PNA. White count continues to increase. Day 6 ATBX. Continue vanc and meropenem. 5. Nutrition: dysphagia, chronic aspiration. Tube feeds off. Failed swallowing evaluation multiple time. Not candidate for PEG due to h/o gastric surgery and varices. 6. Heme: will d/c eliquis that he was on for afib, due to bleeding from esophageal varices 7. GI: h/o esophageal varices, bloody NGT outpt today. Will d/c [place] 8. Ethics. Pt is DNR/DNI. Will consult palliative care.
[2019-07-24] MEDS: METOPROLOL TARTRATE 50 MG TABLET NG SCH (10:12)
[2019-07-24] MEDS: FOLIC ACID 1 MG TABLET NG SCH (10:12)
[2019-07-24] MEDS: THIAMINE HCL 100 MG TABLET NG SCH (10:12)
[2019-07-24] MEDS ORDERED: LORAZEPAM INJ 2 MG/1 ML VIAL ONE (13:11)
[2019-07-24] MEDS ORDERED: LORAZEPAM INJ 2 MG/1 ML VIAL IV ONE (13:45)
[2019-07-24] MEDS ORDERED: MORPHINE SULFATE 10 MG/ML INJ ONE (16:03)
[2019-07-24] MEDS ORDERED: LORAZEPAM INJ 2 MG/1 ML VIAL IV PRN (17:55)
[2019-07-24] MEDS ORDERED: MORPHINE SULFATE 10 MG/ML INJ IV PRN (17:55)
--- NOTE | 2019-07-24 17:57 | Progress Note ---
Provider Note Provider Note: requests that pt be made comfort measures. Hospice to eval tmw.
[2019-07-24 18:25] VITALS: BP 158/66
[2019-07-25] MEDS ORDERED: VANCOMYCIN HCL 1,000 MG in DEXTROSE 5%-WATER 250 ML IV SCH (06:00)
--- NOTE | 2019-07-25 06:40 | Death Summary ---
Summary Date : 07/25/19 Time of :: 05:12 Autopsy: No Resuscitation Status: Comfort Measures Only - Final Diagnosis (1) Acute respiratory failure with hypoxia Is this a current diagnosis for this admission?: Yes (2) Left lower lobe pneumonia Is this a current diagnosis for this admission?: Yes (3) Aspiration pneumonia Is this a current diagnosis for this admission?: Yes (4) Atrial fibrillation with RVR Is this a current diagnosis for this admission?: Yes (5) Alcohol dependence Is this a current diagnosis for this admission?: Yes (6) Alcohol withdrawal delirium Is this a current diagnosis for this admission?: Yes Hospital Course:: MARISSA CORONA is a 78 year old male who presented to the emergency room with a 2-week history of weakness. Patient and his family admit that for the last 2 weeks he has suffered from episodic weakness which is been progressively worsening. Today his weakness was severe such that when it came on suddenly he clutched his chest and fell to the ground requiring assistance of another person to get back on his feet. He also reports a similar episode last evening. His episodic weakness has been accompanied by a decrease in his oral intake. He denies other associated or accompanying signs and symptoms. He denies prior similar episodes and has not identified any aggravating or ameliorating factors for his weakness. In the emergency room he was found to have atrial fibrillation with a rapid ventricular response, hypoxia, an elevated lactic acid as well as an elevated white blood count with a possible pneumonia. He was treated with IV antibiotics using Levaquin and was started on a diltiazem infusion after receiving a bolus dose. He was additionally given an intravenous dose of digoxin. He was subsequently admitted to [facility] for further evaluation and treatment. Patient subsequently developed acute delirium tremens due to alcohol withdrawal. Additionally his respiratory status and pneumonia worsened and he required ever-increasing levels of respiratory support until he was subsequently intubated and ventilated. Patient was eventually weaned from the ventilator but over short period of time his respiratory status degraded and he again required respiratory support. At this point when faced with the probable need for reintubation the patient's family requested that he be made comfort measures only. The patient was indeed made comfort measures only and with dignity in his sleep at 5:12 AM on 07/25/2019.
== END 2019-07-25 05:12 | DRG 177 ==
LOC: ER 17:33 → EH 21:42 → 3N 07-11 → ICU 07-12 17:30 → 5 07-21 15:54 → 3W 07-23 14:00 → ICU 07-23 20:00
PROVIDERS: ADMIT Anesthesiology; ATTEND Internal Medicine
PROC: 5A09557 Assistance with Respiratory Ventilation, Greater than 96 Consecutive Hours, Continuous Positive Airway Pressure (ICD-10-PCS; 2019-07-12)
PROC: 0DH67UZ Insertion of Feeding Device into Stomach, Via Natural or Artificial Opening (ICD-10-PCS; principal; 2019-07-15)
PROC: 3E0G76Z Introduction of Nutritional Substance into Upper GI, Via Natural or Artificial Opening (ICD-10-PCS; 2019-07-15)
DX: J69.0 Pneumonitis due to inhalation of food and vomit (principal); J96.01 Acute respiratory failure with hypoxia; F10.231 Alcohol dependence with withdrawal delirium; E87.1 Hypo-osmolality and hyponatremia; I85.00 Esophageal varices without bleeding; I31.3 Pericardial effusion (noninflammatory); G93.40 Encephalopathy, unspecified; I48.91 Unspecified atrial fibrillation; Z51.5 Encounter for palliative care; K70.30 Alcoholic cirrhosis of liver without ascites; Z87.891 Personal history of nicotine dependence; E87.6 Hypokalemia; Z66 Do not resuscitate; Z91.81 History of falling; Z87.11 Personal history of peptic ulcer disease; Z78.1 Physical restraint status
CPT/HCPCS: 36415; 36600; 70450; 71045; 71250; 74018; 80048; 80053; 80061; 80162; 80202; 81001; 82140; 82272; 82550; 82553; 82803; 82962; 83036; 83605; 83735; 83880; 84439; 84443; 84481; 84484; 85025; 85027; 85610; 85730; 87040; 87070; 87205; 93005; 93010; 93306; 93321; 94640; 94660; 96361; 96365; 96375; 99285; C1758; J0696; J1160; J1630; J1650; J1815; J1940; J1956; J2060; J2185; J2270; J2550; J3230; J3360; J3370; J3411; J3490; J7030; J7040; J7050; J7060; J7120; J7614; J7620